=== PATIENT | female | born 1975 ===

== ENCOUNTER 2016-11-03 17:17 | Inpatient (IN) | payer MEDICAID, OTHER ==
--- NOTE | 2016-11-03 18:01 | C.PDOC ---
History Of Present Illness 41y/o female with PMHx of anemia s/p transfusions in past, presents for evaluation of generalized weakness, dizziness, and palpitations developing since this morning. Patient reports she takes iron pills. Otherwise, denies fever, chills, headache, shortness of breath, CP, dyspnea, diaphoresis, abdominal pain, nausea, vomiting, back pain, UTI sx. At time of evaluation, patient appears high and intoxicated, poor histroian. Time Seen by Provider: 11/03/16 17:42 Chief Complaint (Nursing): Palpitations History Per: Patient History/Exam Limitations: no limitations Onset/Duration Of Symptoms: Hrs Current Symptoms Are (Timing): Still Present Recent travel outside of the [place]: No Past Medical History Reviewed: Historical Data, Nursing Documentation, Vital Signs Vital Signs: Last Vital Signs Temp 98.3 F 11/03/16 17:25 Pulse 100 H 11/03/16 17:25 Resp 16 11/03/16 17:25 BP 108/69 11/03/16 17:25 Pulse Ox 97 11/03/16 18:01 - Medical History PMH: Anemia - [facility] Procedures D & C POST DELIVERY (02/10/13) PACKED CELL TRANSFUSION (02/10/13) Family History: States: Unknown Family Hx - Social History Hx Tobacco Use: No Hx Alcohol Use: Yes Hx Substance Use: No - Immunization History Hx Tetanus Toxoid Vaccination: No Hx Influenza Vaccination: No Hx Pneumococcal Vaccination: No Review Of Systems Except As Marked, All Systems Reviewed And Found Negative. Constitutional: Positive for: Weakness. Negative for: Fever, Chills Cardiovascular: Positive for: Palpitations. Negative for: Chest Pain Respiratory: Negative for: Cough, Shortness of Breath, Wheezing Gastrointestinal: Negative for: Nausea, Vomiting, Abdominal Pain Musculoskeletal: Negative for: Neck Pain Skin: Negative for: Rash Neurological: Positive for: Dizziness Physical Exam - Physical Exam Appears: Non-toxic, No Acute Distress Skin: Warm, Dry, Pale (slight) Head: Atraumatic, Normacephalic Eye(s): bilateral: PERRL (slugish reactive to light B/L) Nose: No Flaring Oral Mucosa: Dry, No Drooling Tongue: Normal Appearing Lips: Other (dry lips) Throat: No Erythema, No Exudate, No Drooling Neck: Normal ROM, Supple Cardiovascular: Rhythm Regular (tachy), No JVD, Other ((-) carotid bruit B/L) Respiratory: Normal Breath Sounds, No Rales, No Rhonchi, No Wheezing Gastrointestinal/Abdominal: Soft, No Tenderness, No Guarding, No Rebound Back: No CVA Tenderness Extremity: Normal ROM, No Pedal Edema, Capillary Refill (< 2 sec.) Neurological/Psych: Oriented x3, Normal Speech, Normal Cognition ED Course And Treatment - Laboratory Results Result Diagrams: 11/03/16 18:08 11/03/16 18:08 Lab Interpretation: Abnormal Urine POC: Negative ECG: Interpreted By Me, Viewed By Me ECG Rhythm: Sinus Rhythm Interpretation Of ECG: SInus tachy@98/min, NAD, no acute T wave or ST-T changes. O2 Sat by Pulse Oximetry: 97 (RA) Pulse Ox Interpretation: Normal - Radiology CXR: Interpreted by Me, Viewed By Me CXR Interpretation: Yes: No Acute Disease - Other Rad CXR X-Ray: Read By Radiologist Interpretation: FINDINGS: LUNGS: No focal consolidation. Please note that chest x-ray has limited sensitivity for the detection of pulmonary masses. PLEURA: No significant pleural effusion identified. No definite pneumothorax . CARDIOVASCULAR: The cardiomediastinal silhouette appears within normal limits of size. OSSEOUS STRUCTURES: No acute osseous abnormality identified. VISUALIZED UPPER ABDOMEN: Unremarkable. OTHER FINDINGS: None. IMPRESSION: No focal consolidation, significant pleural effusion, or definite pneumothorax identified. Progress Note: On re-eval, pt remained unchanged. Blood work review and appears abnoraml. Pt has clinical findings c/w acute anemia, hypokalemia, polysubstance abuse. case discussed with ED attending and admission w/ blood transfusion recommend. results review with pt, family memeber at bedside as well, agrees with plan. case discussed with and admission arranged with hem-onc consult. Disposition - Disposition Disposition: HOSPITALIZED Disposition Time: 18:40 Condition: STABLE Forms: [facility] (Dominican) - Clinical Impression Clinical Impression: Palpitations, Symptomatic anemia, Hypokalemia, Polysubstance (excluding opioids ) dependence - PA / SITE OPERATIONS MANAGER / Resident Statement MD/DO has reviewed & agrees with the documentation as recorded. - Scribe Statement The provider has reviewed the documentation as recorded by the Scribe SM All medical record entries made by the Scribe were at my direction and personally dictated by me. I have reviewed the chart and agree that the record accurately reflects my personal performance of the history, physical exam, medical decision making, and the department course for this patient. I have also personally directed, reviewed, and agree with the discharge instructions and disposition.
[2016-11-03 18:14] LABS: BASO # 0.2 K/uL (0.0-0.2); BASO % 1.2 % (0.0-2.0); EOS # 0.2 K/uL (0.0-0.7); EOS % 1.6 % (0.0-4.0); HEMATOCRIT 19.9 % (34.0-47.0); LYMPH # 1.3 K/uL (1.0-4.3); LYMPH % 8.8 % (20.0-40.0); MEAN CELL VOLUME 57.8 fL (81.0-99.0); MEAN CORPUSCULAR HGB CONC 27.7 g/dL (33.0-37.0); MEAN PLATELET VOLUME 5.9 fL (7.2-11.7); MONO # 0.9 K/uL (0.0-0.8); MONO % 6.1 % (0.0-10.0); PLATELET COUNT 600 K/uL (130-400); WHITE BLOOD COUNT 14.6 K/uL (4.8-10.8)
[2016-11-03 18:19] LABS: RBC URINE 3 /hpf (0-3); URINE BACTERIA FEW (<OCC); URINE BILIRUBIN NEGATIVE (NEGATIVE); URINE BLOOD 2+ (NEGATIVE); URINE COLOR Straw (YELLOW); URINE GLUCOSE (UA) NORMAL (Normal); URINE KETONE NEGATIVE (NEGATIVE); URINE LEUKOCYTE ESTERASE 3+ Leu/uL (Negative); URINE PROTEIN NEGATIVE (NEGATIVE); URINE UROBILINOGEN NORMAL mg/dL (0.2-1.0); WBC URINE 34 /hpf (0-5)
[2016-11-03 18:21] LABS: CHLORIDE 99 mmol/L (98-107)
[2016-11-03 18:22] LABS: POTASSIUM 3.2 mmol/L (3.6-5.2); SODIUM 133 mmol/L (132-148)
[2016-11-03 18:24] LABS: ALB/GLOB RATIO 0.5 (1.0-2.1); ALKALINE PHOSPHATASE 186 U/L (38-126); ALT/SGPT 13 U/L (9-52); AST/SGOT 19 U/L (14-36); BILIRUBIN,TOTAL 0.6 mg/dL (0.2-1.3); CARBON DIOXIDE 21 mmol/L (22-30); GFR AFRICAN-AMERICAN > 60; GLUCOSE,RANDOM 97 mg/dL (65-105); INR 1.3; TOTAL PROTEIN 8.6 g/dL (6.3-8.3)
--- NOTE | 2016-11-03 18:24 | RAD ---
HISTORY: SOB COMPARISON: Chest x-ray performed 07/08/14 TECHNIQUE: Chest PA and lateral FINDINGS: LUNGS: No focal consolidation. Please note that chest x-ray has limited sensitivity for the detection of pulmonary masses. PLEURA: No significant pleural effusion identified. No definite pneumothorax . CARDIOVASCULAR: The cardiomediastinal silhouette appears within normal limits of size. OSSEOUS STRUCTURES: No acute osseous abnormality identified. VISUALIZED UPPER ABDOMEN: Unremarkable. OTHER FINDINGS: None. IMPRESSION: No focal consolidation, significant pleural effusion, or definite pneumothorax identified.
[2016-11-03 18:25] LABS: ALCOHOL SERUM < 10 mg/dl (0-10); BLOOD UREA NITROGEN 2 mg/dL (7-17); CALCIUM 8.1 mg/dl (8.6-10.4)
[2016-11-03] MEDS ORDERED: Potassium Chloride 20 mEq ER Tab PO STA (18:58)
[2016-11-03 19:18] LABS: BASOPHIL 1 % (0-2); NEUTROPHIL 80 % (50-75); TOTAL CELLS COUNTED 100
[2016-11-03 19:20] LABS: GIANT PLATELETS PRESENT; LARGE PLATELETS PRESENT
[2016-11-03] MEDS ORDERED: Sodium Chloride 0.9% 1,000 ML ONE (19:44)
[2016-11-03] MEDS ORDERED: Potassium Chloride 20 mEq ER Tab PO ONE (20:26)
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
[2016-11-04] MEDS ORDERED: Sodium Chloride 0.9% 1,000 ML IV ONE (06:08)
--- NOTE | 2016-11-04 06:54 | CP.PCM.CON ---
History of Present Illness - History of Present Illness History of Present Illness: PATIENT SEEN. FULL CONSULT WILL BE DICTATED Dx: SEVERE SYMPTOMATIC HYPOCHROMIC MICROCYTIC ANEMIA R/O GI AND CONSTRUCTION LINEMAN BLOOD LOSS SUGGEST : IRON, TIBC, FERRITIN, B12, FOLATE LEVEL SERUM PROTEIN ELECTOPHORESIS GI AND CONSTRUCTION LINEMAN EVAL TO R/O BLOOD LOSS CONSIDER IV IRON Past Patient History - Past Medical History & Family History Past Medical History?: Yes - Past Social History Smoking Status: Never Smoked - CARDIAC Hx Cardiac Disorders: No - PULMONARY Hx Respiratory Disorders: No - NEUROLOGICAL Hx Neurological Disorder: No - HEENT Hx HEENT Problems: No - RENAL Hx Chronic Kidney Disease: No - ENDOCRINE/METABOLIC Hx Endocrine Disorders: No - HEMATOLOGICAL/ONCOLOGICAL Hx Anemia: Yes - INTEGUMENTARY Other/Comment: Pus filled drainage on left anterior pubis - MUSCULOSKELETAL/RHEUMATOLOGICAL Hx Falls: No - GASTROINTESTINAL Hx Gastrointestinal Disorders: No - GENITOURINARY/GYNECOLOGICAL Hx Genitourinary Disorders: No - PSYCHIATRIC Hx Substance Use: No - SURGICAL HISTORY Hx Surgeries: No - ANESTHESIA Hx Anesthesia: No Meds Allergies/Adverse Reactions: Allergies Allergy/AdvReac Type Severity Reaction Status Date / Time No Known Allergies Allergy Verified 11/03/16 17:40 - Medications Medications: Current Medications Acetaminophen (Tylenol 325mg Tab) 650 mg PO Q4H PRN PRN Reason: pain fever Famotidine (Pepcid) 40 mg PO DAILY EYAL Ceftriaxone Sodium (Rocephin Iv 1 Gm Duplex) 50 mls @ 100 mls/hr IVPB DAILY EYAL Sodium Chloride (Sodium Chloride 0.9%) 1,000 mls @ 1,000 mls/hr IV .Q1H ONE Stop: 11/04/16 07:07 Pneumococcal Polyvalent Vaccine (Pneumovax 23 Vaccine) 0.5 ml IM .ONCE ONE Stop: 11/05/16 10:01 Results - Vital Signs Recent Vital Signs: Last Vital Signs Temp 97.9 F 11/04/16 05:07 Pulse 80 11/04/16 05:07 Resp 20 11/04/16 05:07 BP 100/62 11/04/16 05:07 Pulse Ox 100 11/04/16 00:00 - Labs Result Diagrams: 11/03/16 18:08 11/03/16 18:08 Labs: Laboratory Results - last 24 hr 11/04/16 03:53 Stool Occult Blood Negative
--- NOTE | 2016-11-04 09:41 | CP.PCM.CON ---
History of Present Illness - History of Present Illness History of Present Illness: General surgery consult note HPI: Patient is a 41 year old female with past medical history of anemia, hidradenitis suppurativa, cocaine use with left groin hidradenitis suppurativa that has been continuos for a year. Patient denies fever, chills, nausea or vomiting. Review of Systems - Constitutional Constitutional: absent: Chills, Fever - Respiratory Respiratory: Dyspnea - Gastrointestinal Gastrointestinal: absent: Abdominal Pain, Nausea, Vomiting - Integumentary Integumentary: Rash Past Patient History - Past Medical History & Family History Past Medical History?: Yes - Past Social History Smoking Status: Never Smoked - CARDIAC Hx Cardiac Disorders: No - PULMONARY Hx Respiratory Disorders: No - NEUROLOGICAL Hx Neurological Disorder: No - HEENT Hx HEENT Problems: No - RENAL Hx Chronic Kidney Disease: No - ENDOCRINE/METABOLIC Hx Endocrine Disorders: No - HEMATOLOGICAL/ONCOLOGICAL Hx Anemia: Yes - INTEGUMENTARY Other/Comment: Pus filled drainage on left anterior pubis - MUSCULOSKELETAL/RHEUMATOLOGICAL Hx Falls: No - GASTROINTESTINAL Hx Gastrointestinal Disorders: No - GENITOURINARY/GYNECOLOGICAL Hx Genitourinary Disorders: No - PSYCHIATRIC Hx Substance Use: No - SURGICAL HISTORY Hx Surgeries: No - ANESTHESIA Hx Anesthesia: No Meds Allergies/Adverse Reactions: Allergies Allergy/AdvReac Type Severity Reaction Status Date / Time No Known Allergies Allergy Verified 11/03/16 17:40 - Medications Medications: Current Medications Acetaminophen (Tylenol 325mg Tab) 650 mg PO Q4H PRN PRN Reason: pain fever Famotidine (Pepcid) 40 mg PO DAILY EYAL Ceftriaxone Sodium (Rocephin Iv 1 Gm Duplex) 50 mls @ 100 mls/hr IVPB DAILY [facility] Pneumococcal Polyvalent Vaccine (Pneumovax 23 Vaccine) 0.5 ml IM .ONCE ONE Stop: 11/05/16 10:01 Physical Exam - Constitutional Appears: No Acute Distress - Head Exam Head Exam: ATRAUMATIC, NORMAL INSPECTION - Eye Exam Eye Exam: EOMI - Respiratory Exam Respiratory Exam: Clear to Auscultation Bilateral, NORMAL BREATHING PATTERN - Cardiovascular Exam Cardiovascular Exam: REGULAR RHYTHM, +S1, +S2 - GI/Abdominal Exam GI & Abdominal Exam: Normal Bowel Sounds, Soft - Extremities Exam Extremities exam: Positive for: normal inspection. Negative for: pedal edema, tenderness - Skin Additional comments: Left groin hidradenitis suppurativa Results - Vital Signs Recent Vital Signs: Last Vital Signs Temp 97.6 F 11/04/16 07:20 Pulse 78 11/04/16 07:20 Resp 20 11/04/16 07:20 BP 100/60 11/04/16 07:20 Pulse Ox 100 11/04/16 07:20 - Labs Result Diagrams: 11/03/16 18:08 11/03/16 18:08 Labs: Laboratory Results - last 24 hr 11/04/16 03:53 Stool Occult Blood Negative Assessment & Plan - Assessment and Plan (Free Text) Assessment: 41 year old female with left groin hidradenitis suppurativa Plan: - No surgical intervention at this time - Continue antibiotics regimen - Recommendation for Vibramycin outpatient - Plans discussed with Dr. Peter Banks, PGY-1
[2016-11-04] MEDS ORDERED: cefTRIAXone IV 1 gm in Dextros 50 ML IVPB SCH (10:00)
[2016-11-04 11:21] LABS: BASO # 0.1 K/uL (0.0-0.2); BASO % 0.8 % (0.0-2.0); EOS # 0.3 K/uL (0.0-0.7); EOS % 2.3 % (0.0-4.0); HEMATOCRIT 25.1 % (34.0-47.0); LYMPH # 1.2 K/uL (1.0-4.3); LYMPH % 8.8 % (20.0-40.0); MEAN CORPUSCULAR HEMOGLOBIN 18.8 pg (27.0-31.0); MEAN CORPUSCULAR HGB CONC 29.2 g/dL (33.0-37.0); PLATELET COUNT 510 K/uL (130-400); RED CELL DISTRIBUTION WIDTH 27.5 % (11.5-14.5); RETIC% 2.7 % (0.5-1.5)
[2016-11-04 11:25] LABS: MEAN CELL VOLUME 64.5 fL (81.0-99.0)
[2016-11-04 11:50] LABS: IRON 15 ug/dL (37-170)
[2016-11-04 11:51] LABS: CHLORIDE 105 mmol/L (98-107); POTASSIUM 3.3 mmol/L (3.6-5.2); SODIUM 139 mmol/L (132-148)
[2016-11-04 11:54] LABS: BLOOD UREA NITROGEN 3 mg/dL (7-17); CARBON DIOXIDE 24 mmol/L (22-30); GFR AFRICAN-AMERICAN > 60; GLUCOSE,RANDOM 100 mg/dL (65-105); MAGNESIUM 1.8 mg/dL (1.6-2.3); PHOSPHOROUS 2.5 mg/dL (2.5-4.5)
[2016-11-04 11:55] LABS: CALCIUM 7.5 mg/dl (8.6-10.4)
[2016-11-04 12:01] LABS: EOSINOPHIL 1 % (0-4); NEUTROPHIL 83 % (50-75); TOTAL CELLS COUNTED 100
--- NOTE | 2016-11-04 12:37 | CARD ---
APPROVED REPORT EKG Measurement Heart [id number] <Conclusion> Normal sinus rhythm Normal ECG
[2016-11-04] MEDS: Piperacill/Tazo 3.375gm in Dex 3.375 GM/50 ML BAG IVPB SCH ×3 (12:56→23:44)
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
[2016-11-04] MEDS ORDERED: Potassium Chloride 20 mEq ER Tab PO STA (13:09)
--- NOTE | 2016-11-04 13:12 | CARD ---
APPROVED REPORT EXAM: Two-dimensional and M-mode echocardiogram with Doppler and color Doppler. Other Information Quality : GoodRhythm : INDICATION Dizziness and Vertigo Infection:Rule out subacute bacterial endocarditis Palpitations 2D DIMENSIONS IVSd0.7 (0.7-1.1cm)LVDd4.3 (3.9-5.9cm) PWd0.7 (0.7-1.1cm)LVDs3.2 (2.5-4.0cm) FS (%) 27.4 %LVEF (%)53.6 (>50%) M-Mode DIMENSIONS RVDd2.31 (2.1-3.2cm)Left Atrium (MM)3.98 (2.5-4.0cm) IVSd0.85 (0.7-1.1cm)Aortic Root2.59 (2.2-3.7cm) LVDd4.68 (4.0-5.6cm)Aortic Cusp Exc.1.92 (1.5-2.0cm) PWd0.70 (0.7-1.1cm)FS (%) 33 % LVDs3.16 (2.0-3.8cm)LVEF (%)61 (>50%) Mitral Valve MV E Munsarcm448.4cm/sMV A Fbkaczru32.3cm/sE/A ratio1.2 TDI E/Lateral E'0.0E/Medial E'0.0 Tricuspid Valve TR Peak [id number]/sTR Peak Gr.[id number] LEFT VENTRICLE The left ventricle is normal size. There is normal left ventricular wall thickness. The left ventricular function is normal. The left ventricular ejection fraction is within the normal range. There is normal LV segmental wall motion. Tissue Doppler imaging reveals mild left ventricular diastolic dysfunction. No left ventricle thrombus noted on this study. There is no ventricular septal defect visualized. There is no left ventricular aneurysm. There is no mass noted in the left ventricle. RIGHT VENTRICLE The right ventricle is normal size. There is normal right ventricular wall thickness. The right ventricular systolic function is normal. ATRIA The left atrium size is normal. The right atrium size is normal. The interatrial septum is intact with no evidence for an atrial septal defect. AORTIC VALVE The aortic valve is normal in structure. There is no aortic valvular stenosis. There is no aortic valvular vegetation. MITRAL VALVE The mitral valve is normal in structure. There is no mitral valve stenosis. Mitral regurgitation is mild. TRICUSPID VALVE The tricuspid valve is normal in structure. There is mild tricuspid regurgitation. There is mild pulmonary hypertension. PULMONIC VALVE The pulmonary valve is normal in structure. GREAT VESSELS The aortic root is normal in size. The ascending aorta is normal in size. The pulmonary artery is normal. PERICARDIAL EFFUSION There is no pericardial effusion. <Conclusion> Tissue Doppler imaging reveals mild left ventricular diastolic dysfuNCTION. Mitral regurgitation is mild. There is mild tricuspid regurgitation. There is mild pulmonary hypertension.
[2016-11-04] MEDS: Vancomycin 1 gm/NS 200 ml 1 GM/200 ML BAG IVPB SCH (13:43)
[2016-11-05 01:05] VITALS: RESP 20
[2016-11-05] MEDS: Piperacill/Tazo 3.375gm in Dex 3.375 GM/50 ML BAG IVPB SCH ×4 (05:13→23:54)
[2016-11-05 08:26] LABS: HEMATOCRIT 32.5 % (34.0-47.0); MEAN CORPUSCULAR HEMOGLOBIN 21.5 pg (27.0-31.0); MONO # 0.8 K/uL (0.0-0.8); WHITE BLOOD COUNT 12.4 K/uL (4.8-10.8)
[2016-11-05 08:34] LABS: BASO # 0.2 K/uL (0.0-0.2); BASO % 1.3 % (0.0-2.0); EOS # 0.4 K/uL (0.0-0.7); LYMPH # 1.7 K/uL (1.0-4.3); LYMPH % 13.5 % (20.0-40.0); MEAN CORPUSCULAR HGB CONC 31.2 g/dL (33.0-37.0); MONO % 6.7 % (0.0-10.0); NRBC % 0.1 % (0.0-2.0); RED CELL DISTRIBUTION WIDTH 29.5 % (11.5-14.5)
[2016-11-05 08:36] LABS: MEAN CELL VOLUME 68.9 fL (81.0-99.0)
[2016-11-05 08:43] LABS: CHLORIDE 104 mmol/L (98-107); POTASSIUM 3.4 mmol/L (3.6-5.2); SODIUM 136 mmol/L (132-148)
[2016-11-05 08:45] LABS: GFR AFRICAN-AMERICAN > 60
[2016-11-05 08:46] LABS: ALB/GLOB RATIO 0.5 (1.0-2.1); ALKALINE PHOSPHATASE 156 U/L (38-126); ALT/SGPT 15 U/L (9-52); AST/SGOT 15 U/L (14-36); BILIRUBIN,TOTAL 0.9 mg/dL (0.2-1.3); BLOOD UREA NITROGEN 3 mg/dL (7-17); CALCIUM 7.7 mg/dl (8.6-10.4); CARBON DIOXIDE 24 mmol/L (22-30); GLUCOSE,RANDOM 93 mg/dL (65-105); TOTAL PROTEIN 7.7 g/dL (6.3-8.3)
[2016-11-05] MEDS ORDERED: Pneumococcal 23-Valent Vaccine IM ONE (10:00)
--- NOTE | 2016-11-05 10:09 | CP.PCM.PN ---
<Chepe Adams - Last Filed: 11/05/16 10:05> Subjective - Date & Time of Evaluation Date of Evaluation: 11/05/16 Time of Evaluation: 10:05 - Subjective Subjective: PGY1 Medicine Note for Dr. Yeager Patient seen and examined at bedside this morning. She states that she is feel stronger, but go dizzy while she was up and walking to the bathroom this morning. She also is complaining of left eye pain. She woke up to crusting and discharge coming from the left eye. She is tolerating her diet. Denies f/c, n/v , d/c, sob or cp. Objective - Vital Signs/Intake and Output Vital Signs (last 24 hours): Temp Pulse Resp BP Pulse Ox 98.5 F 77 20 110/69 100 11/05/16 08:00 11/05/16 08:00 11/05/16 08:00 11/05/16 08:00 11/05/16 08:00 Intake and Output: 11/05/16 11/05/16 06:59 18:59 Intake Total 1050 Balance 1050 - Medications Medications: Current Medications Acetaminophen (Tylenol 325mg Tab) 650 mg PO Q4H PRN PRN Reason: pain fever Famotidine (Pepcid) 40 mg PO DAILY EYAL Last Admin: 11/05/16 09:24 Dose: 40 mg Piperacillin Sod/Tazobactam Sod (Zosyn 3.375 Gm Iv Premix) 3.375 gm in 50 mls @ 100 mls/hr IVPB Q6H EYLA Last Admin: 11/05/16 05:13 Dose: 100 mls/hr Vancomycin/Sodium Chloride (Vancocin) 1 gm in 200 mls @ 133.333 mls/hr IVPB Q24H EYAL Stop: 11/09/16 13:01 Last Admin: 11/04/16 13:43 Dose: 133.333 mls/hr Potassium Chloride (K-Dur 20 Meq Er Tab) 40 meq PO STAT STA Stop: 11/05/16 10:05 - Labs Labs: 11/05/16 08:14 11/05/16 08:14 PT 14.2 SECONDS (9.7-12.2) H 11/03/16 18:08 INR 1.3 11/03/16 18:08 APTT 31 SECONDS (21-34) 11/03/16 18:08 - Constitutional Appears: Non-toxic, No Acute Distress - Head Exam Head Exam: NORMOCEPHALIC Additional comments: scar in center of forehead - Eye Exam Eye Exam: EOMI. absent: Normal appearance (Conjunctivitis of left eye. Green crust/discharge.) - ENT Exam ENT Exam: Mucous Membranes Moist - Respiratory Exam Respiratory Exam: Clear to Ausculation Bilateral, NORMAL BREATHING PATTERN. absent: Accessory Muscle Use, Wheezes, Respiratory Distress - Cardiovascular Exam Cardiovascular Exam: REGULAR RHYTHM, +S1, +S2 - GI/Abdominal Exam GI & Abdominal Exam: Soft, Normal Bowel Sounds. absent: Distended, Guarding, Tenderness - Extremities Exam Extremities Exam: Normal Inspection. absent: Calf Tenderness, Pedal Edema - Neurological Exam Neurological Exam: Alert, Awake, Oriented x3 Additional comments: Patient's sentences are fully comprehensible today. - Psychiatric Exam Psychiatric exam: Normal Mood - Skin Skin Exam: Normal Color, Rash (located on abdomen, non-erythematous), Warm Assessment and Plan - Assessment and Plan (Free Text) Plan: Symptomatic anemia Hgb 5.5 on admission patient received 2units of pRBCs on floor on 11/03 repeat Hgb on 11/04 was 7.3, transfused 2 more units of pRBCs 11/05: Hgb increased to 10.1; will continue to monitor with AM labs. Iron studies show: Iron 15, TIBC 310, %sat 5, ferritin 12.5 Occult blood stool negative Bandemia 11/03: WBC 14.6 - 8 % bands 11/04: WBC 14.0 - 2% bands 11/05: WBC decreased to 12.4 - 0 bands patient with UA with leukocyte esterase, WBC. urine culture pending awaiting blood cultures patient started on Vanco and Zosyn elevated platelets likely reactive - 600 on admission - currently decreased to 471 ECHO (11/04/16) - revealed mild left ventricular diatolic dysfunction. Mild Mitral regurg. Mild tricuspid regurug. No vegetations seen. Hypokalemia patient received Kdur in ER on 11/03 K on 11/05 was 3.4. given Kdur 40meq will continue to monitor and replete Hidradenitis Surgical consult, Dr. Green - help appreciated Polysubstance abuse UDS positive for coaine, amphetamines alcohol level <[address] Stephane - help appreciated HIV screen neg Breast discharge consider breast US Conjunctivitis Apply warm compresses Will re-evaluate tomorrow. Possibly start Cipro Ophthalmic drops. Case discussed with Dr. Shobha Adams PGY1 <Herman Yeager - Last Filed: 11/05/16 11:20> Objective - Vital Signs/Intake and Output Vital Signs (last 24 hours): Temp Pulse Resp BP Pulse Ox 98.5 F 77 20 110/69 100 11/05/16 08:00 11/05/16 08:00 11/05/16 08:00 11/05/16 08:00 11/05/16 08:00 Intake and Output: 11/05/16 11/05/16 06:59 18:59 Intake Total 1050 Balance 1050 - Medications Medications: Current Medications Acetaminophen (Tylenol 325mg Tab) 650 mg PO Q4H PRN PRN Reason: pain fever Famotidine (Pepcid) 40 mg PO DAILY EYAL Last Admin: 11/05/16 09:24 Dose: 40 mg Piperacillin Sod/Tazobactam Sod (Zosyn 3.375 Gm Iv Premix) 3.375 gm in 50 mls @ 100 mls/hr IVPB Q6H EYAL Last Admin: 11/05/16 05:13 Dose: 100 mls/hr Vancomycin/Sodium Chloride (Vancocin) 1 gm in 200 mls @ 133.333 mls/hr IVPB Q24H EYAL Stop: 11/09/16 13:01 Last Admin: 11/04/16 13:43 Dose: 133.333 mls/hr - Labs Labs: 11/05/16 08:14 11/05/16 08:14 PT 14.2 SECONDS (9.7-12.2) H 11/03/16 18:08 INR 1.3 11/03/16 18:08 APTT 31 SECONDS (21-34) 11/03/16 18:08 Attending/Attestation - Attestation I have personally seen and examined this patient.: Yes I have fully participated in the care of the patient.: Yes I have reviewed all pertinent clinical information, including history, physical exam and plan: Yes Notes (Text): Medical Attending: Patient was seen and examined by me. Agree with the above note by the resident Will start Cipro eye drops as well as warm compresses to the left eye. On exam we also had her stand up and walk around the hallway. She was able to do so readily without any assitance. Gait is normal. While walking she denied chest pain, denied shortness of breath, denied palpitations. The echo returned and was negative for vegetations. HIV negative. Pending on blood cultures. thank you Herman Yeager
[2016-11-05] MEDS ORDERED: Potassium Chloride 20 mEq ER Tab PO ONE (10:15)
[2016-11-05] MEDS ORDERED: Ciprofloxacin 0.3% OPTH SOLN OU SCH (11:30)
--- NOTE | 2016-11-05 11:50 | PCM.PSYCH ---
Initial Psychiatric Evaluation - Initial Psychiatric Evaluation Type of Admission: Voluntary Legal Status: Capacity Chief Complaint (in patient's own words): I was feeling anxious' History of Present Illness and Precipitating Events: Patient is a 41 years old HF, who lives with boyfriend and currently unemployed was admitted on the medical floor because of dizziness and palpitations. Today patient was consulted because of history of cocaine dependence, and amphetamine abuse. Patient reports a long history of abusing cocaine. As per the patient she injects up to $50 worth of cocaine daily, along with some amphetamine. As per the patient, yesterday she became dizzy and started having palpitations and so she came to the hospital to get help. Patient reports headaches, and anxiety but denies any shakes, seizures or any withdrawal symptoms. She reports irritability, but denies any feelings of hopelessness or helplessness. She denies any suicidal ideation or any homicidal ideation in the past. She denies any auditory or visual hallucinations or any psychotic symptoms. She denies any other substance abuse. Past medical history Low hemoglobin Current Medications: Active Medications Generic Name Dose Route Start Last Admin Trade Name Tori PRN Reason Stop Dose Admin Acetaminophen 650 mg 11/03/16 23:06 Tylenol 325mg Tab PO Q4H PRN pain fever Ciprofloxacin 1 drop 11/05/16 12:00 Ciloxan 0.3% Ophth Soln OU Q6 EYAL Famotidine 40 mg 11/04/16 10:00 11/05/16 09:24 Pepcid PO 40 mg DAILY EYAL Administration Piperacillin Sod/Tazobactam Sod 3.375 gm in 50 mls @ 100 mls/hr 11/04/16 12: 00 11/05/16 05:13 Zosyn 3.375 Gm Iv Premix IVPB 100 mls/hr Q6H EYAL Administration Vancomycin/Sodium Chloride 1 gm in 200 mls @ 133.333 mls/hr 11/04/16 13:00 13:43 Vancocin IVPB 11/09/16 13:01 133.333 mls/hr Q24H EYAL Administration Past Psychiatric History - Past Psychiatric History Previous Treatment History: None Pertinent Medical Hx (Current Medical&Sleep Prob, Allergies): Allergies Allergy/AdvReac Type Severity Reaction Status Date / Time No Known Allergies Allergy Verified 11/03/16 17:40 No Known Home Med 11/03/16 Review of Systems - Review of Systems All systems: reviewed and no additional remarkable complaints except - Psychiatric Psychiatric: Anxiety. absent: Suicidal Ideation Mental Status Examination - Personal Presentation Personal Presentation: Looks stated age - Affect Affect: Constricted - Motor Activity Motor Activity: Calm - Reliability in Providing Information Reliability in Providing Information: Good - Speech Speech: Organized - Mood Mood: Neutral - Formal Thought Process Formal Thought Process: No Impairment - Obsessions/Compulsions Obsessions: No Compulsions: No - Cognitive Functions Orientation: Person, Place, Situation, Time Sensorium: Alert Attention/Concentration: Attentive Abstract Thinking: [place] Estimate of Intelligence: Below average Judgement: Imparied, as evidence by: Poor judgement, Intact, as evidence by: Insight regarding need for hospitalization - Strength & Assets Inventory Strength & Assets Inventory: Family support DSM 5 DX - DSM 5 DSM 5 Diagnosis: Anxiety disorder NOS Cocaine use disorder moderate Amphetamine use disorder moderate - Recommended/Plan of Treatment Treatment Recommendations and Plan of Treatment: Anxiety disorder NOS Cocaine use disorder moderate Amphetamine use disorder moderate patient psychiatrically stable and can be discharged to an [facility] program - Smoking Cessation Smoking Cessation Initiated: No
[2016-11-05] MEDS: Ciprofloxacin 0.3% OPTH SOLN OU SCH ×3 (13:28→23:54)
[2016-11-05] MEDS: Vancomycin 1 gm/NS 200 ml 1 GM/200 ML BAG IVPB SCH (13:32)
[2016-11-06] MEDS: Ciprofloxacin 0.3% OPTH SOLN OU SCH ×2 (06:10→12:39)
[2016-11-06] MEDS: Piperacill/Tazo 3.375gm in Dex 3.375 GM/50 ML BAG IVPB SCH ×2 (06:10→12:33)
[2016-11-06 07:47] LABS: BASO # 0.1 K/uL (0.0-0.2); EOS # 0.4 K/uL (0.0-0.7); EOS % 3.3 % (0.0-4.0); NRBC % 0.1 % (0.0-2.0); WHITE BLOOD COUNT 11.8 K/uL (4.8-10.8)
[2016-11-06 08:04] LABS: CHLORIDE 102 mmol/L (98-107)
[2016-11-06 08:05] LABS: POTASSIUM 3.8 mmol/L (3.6-5.2); SODIUM 137 mmol/L (132-148)
[2016-11-06 08:07] LABS: ALB/GLOB RATIO 0.5 (1.0-2.1); ALKALINE PHOSPHATASE 170 U/L (38-126); AST/SGOT 21 U/L (14-36); BILIRUBIN,TOTAL 0.7 mg/dL (0.2-1.3); BLOOD UREA NITROGEN 5 mg/dL (7-17); CARBON DIOXIDE 26 mmol/L (22-30); GFR AFRICAN-AMERICAN > 60
[2016-11-06 08:08] LABS: ALT/SGPT 20 U/L (9-52); CALCIUM 8.2 mg/dl (8.6-10.4); GLUCOSE,RANDOM 84 mg/dL (65-105)
[2016-11-06 08:24] LABS: BASO % 1.2 % (0.0-2.0); LYMPH # 1.9 K/uL (1.0-4.3); LYMPH % 16.4 % (20.0-40.0); MEAN CELL VOLUME 69.8 fL (81.0-99.0); MEAN CORPUSCULAR HEMOGLOBIN 21.6 pg (27.0-31.0); MEAN CORPUSCULAR HGB CONC 30.9 g/dL (33.0-37.0); MEAN PLATELET VOLUME 5.9 fL (7.2-11.7); MONO % 8.8 % (0.0-10.0)
[2016-11-06] MEDS: Vancomycin 1 gm/NS 200 ml 1 GM/200 ML BAG IVPB SCH (13:15)
[2016-11-06 17:07] VITALS: BP 110/75; PULSE 68; TEMP 98.2; O2SAT 99
--- NOTE | 2016-11-08 09:48 | CP.PCM.DIS ---
<Chepe Adams - Last Filed: 11/08/16 09:45> Provider - Provider Date of Admission: 11/03/16 18:41 Attending physician: Shankar Vogel MD Consults: Hector Florez - acute anemia [place] - hidradenitis suppurativa Stephane, Farida - Alcohol/Cocaine Abuse, Depression Time Spent in preparation of Discharge (in minutes): 45 Hospital Course - Lab Results Lab Results: Micro Results 11/04/16 10:27 Blood-Venous Blood Culture - Preliminary NO GROWTH AFTER 3 DAYS 11/04/16 10:50 Blood-Venous Blood Culture - Preliminary NO GROWTH AFTER 3 DAYS Most Recent Lab Values WBC 11.8 K/uL (4.8-10.8) H 11/06/16 06:45 RBC 4.87 Mil/uL (3.80-5.20) 11/06/16 06:45 Hgb 10.5 g/dL (11.0-16.0) L 11/06/16 06:45 Hct 34.0 % (34.0-47.0) 11/06/16 06:45 MCV 69.8 fL (81.0-99.0) L 11/06/16 06:45 MCH 21.6 pg (27.0-31.0) L 11/06/16 06:45 MCHC 30.9 g/dL (33.0-37.0) L 11/06/16 06:45 RDW 30.0 % (11.5-14.5) H 11/06/16 06:45 Plt Count 459 K/uL (130-400) H 11/06/16 06:45 MPV 5.9 fL (7.2-11.7) L 11/06/16 06:45 Neut % (Auto) 70.3 % (50.0-75.0) 11/06/16 06:45 Lymph % (Auto) 16.4 % (20.0-40.0) L 11/06/16 06:45 Grand % (Auto) 8.8 % (0.0-10.0) 11/06/16 06:45 Eos % (Auto) 3.3 % (0.0-4.0) 11/06/16 06:45 Baso % (Auto) 1.2 % (0.0-2.0) 11/06/16 06:45 Neut # 8.3 K/uL (1.8-7.0) H 11/06/16 06:45 Lymph # 1.9 K/uL (1.0-4.3) 11/06/16 06:45 Grand # 1.0 K/uL (0.0-0.8) H 11/06/16 06:45 Eos # 0.4 K/uL (0.0-0.7) 11/06/16 06:45 Baso # 0.1 K/uL (0.0-0.2) 11/06/16 06:45 Neutrophils % (Manual) 83 % (50-75) H 11/04/16 11:09 Band Neutrophils % 2 % (0-2) 11/04/16 11:09 Lymphocytes % (Manual) 7 % (20-40) L 11/04/16 11:09 Monocytes % (Manual) 7 % (0-10) 11/04/16 11:09 Eosinophils % (Manual) 1 % (0-4) 11/04/16 11:09 Basophils % (Manual) 1 % (0-2) 11/03/16 18:08 Toxic Granulation Present 11/04/16 11:09 Platelet Estimate Increased (NORMAL) H 11/04/16 11:09 Large Platelets Present 11/03/16 18:08 Giant Platelets Present 11/03/16 18:08 Hypochromasia (manual) Slight 11/04/16 11:09 Poikilocytosis (manual Slight 11/04/16 11:09 Anisocytosis (manual) Slight 11/04/16 11:09 Microcytosis (manual) Slight 11/04/16 11:09 Macrocytosis (manual) Slight 11/04/16 11:09 Schistocytes Slight 11/03/16 18:08 Retic Count 2.7 % (0.5-1.5) H 11/04/16 11:09 PT 14.2 SECONDS (9.7-12.2) H 11/03/16 18:08 INR 1.3 11/03/16 18:08 APTT 31 SECONDS (21-34) 11/03/16 18:08 Sodium 137 mmol/L (132-148) 11/06/16 06:45 Potassium 3.8 mmol/L (3.6-5.2) 11/06/16 06:45 Chloride 102 mmol/L (98-107) 11/06/16 06:45 Carbon Dioxide 26 mmol/L (22-30) 11/06/16 06:45 Anion Gap 13 (10-20) 11/06/16 06:45 BUN 5 mg/dL (7-17) L 11/06/16 06:45 Creatinine 0.5 MG/DL (0.7-1.2) L 11/06/16 06:45 Est GFR ( Amer) > 60 11/06/16 06:45 Est GFR (Non-Af Amer) > 60 11/06/16 06:45 POC Glucose (mg/dL) 91 mg/dL (65-110) 11/03/16 17:34 Random Glucose 84 mg/dL (65-105) 11/06/16 06:45 Calcium 8.2 mg/dl (8.6-10.4) L 11/06/16 06:45 Phosphorus 2.5 mg/dL (2.5-4.5) 11/04/16 11:09 Magnesium 1.8 mg/dL (1.6-2.3) 11/04/16 11:09 Iron 15 ug/dL (37-170) L 11/04/16 11:09 TIBC 310 ug/dL (250-450) 11/04/16 11:09 % Saturation 5 (20-55) L 11/04/16 11:09 Ferritin 12.5 ng/mL 11/04/16 11:09 Total Bilirubin 0.7 mg/dL (0.2-1.3) 11/06/16 06:45 AST 21 U/L (14-36) 11/06/16 06:45 ALT 20 U/L (9-52) 11/06/16 06:45 Alkaline Phosphatase 170 U/L (38-126) H 11/06/16 06:45 Total Creatine Kinase < 20 U/L (30-135) L 11/03/16 18:08 Troponin I < 0.0120 ng/mL (0.00-0.120) 11/03/16 18:08 Total Protein 8.0 g/dL (6.3-8.3) 11/06/16 06:45 Albumin 2.8 g/dL (3.5-5.0) L 11/06/16 06:45 Globulin 5.3 gm/dL (2.2-3.9) H 11/06/16 06:45 Albumin/Globulin Ratio 0.5 (1.0-2.1) L 11/06/16 06:45 Urine Color Straw (YELLOW) 11/03/16 18:08 Urine Clarity Clear (Clear) 11/03/16 18:08 Urine pH 7.0 (5.0-8.0) 11/03/16 18:08 Ur Specific [place] 1.001 (1.003-1.030) L 11/03/16 18:08 Urine Protein Negative mg/dL (NEGATIVE) 11/03/16 18:08 Urine Glucose (UA) Normal mg/dL (Normal) 11/03/16 18:08 Urine Ketones Negative mg/dL (NEGATIVE) 11/03/16 18:08 Urine Blood 2+ (NEGATIVE) H 11/03/16 18:08 Urine Nitrate Negative (NEGATIVE) 11/03/16 18:08 Urine Bilirubin Negative (NEGATIVE) 11/03/16 18:08 Urine Urobilinogen Normal mg/dL (0.2-1.0) 11/03/16 18:08 Ur Leukocyte Esterase 3+ Jam/uL (Negative) H 11/03/16 18:08 Urine WBC (Auto) 34 /hpf (0-5) H 11/03/16 18:08 Urine RBC (Auto) 3 /hpf (0-3) 11/03/16 18:08 Ur Squamous Epith Cells 1 /hpf (0-5) 11/03/16 18:08 Urine Bacteria Few (<OCC) H 11/03/16 18:08 Urine HCG, Qual Negative (NEGATIVE) 11/03/16 18:08 Stool Occult Blood Negative (NEGATIVE) 11/04/16 03:53 Urine Opiates Screen Negative (NEGATIVE) 11/03/16 18:08 Urine Methadone Screen Negative (NEGATIVE) 11/03/16 18:08 Ur Barbiturates Screen Negative (NEGATIVE) 11/03/16 18:08 Ur Phencyclidine Scrn Negative (NEGATIVE) 11/03/16 18:08 Ur Amphetamines Screen Positive (NEGATIVE) 11/03/16 18:08 U Benzodiazepines Scrn Negative (NEGATIVE) 11/03/16 18:08 U Oth Cocaine Metabols Positive (NEGATIVE) 11/03/16 18:08 U Cannabinoids Screen Negative (NEGATIVE) 11/03/16 18:08 Alcohol, Quantitative < 10 mg/dl (0-10) 11/03/16 18:08 HIV 1&2 Antibody Screen Negative (NEGATIVE) 11/04/16 11:09 Blood Type B POSITIVE 11/03/16 18:08 Antibody Screen Negative 11/03/16 18:08 - Hospital Course Hospital Course: As per admission documentation Patient is a 41 year old female with PMHx anemia, hidradenitis suppurativa, cocaine use, who presents with weakness which began at 2PM on 11/03. Patient states she was cleaning her house and felt like her heart was pumping harder than normal. Patient states she stopped, decided to rest, but felt the pumping sensation again. Patient states she felt like she would collapse so she called EMS. Patient states she did not lose consciousness or fall. Patient denies prior episodes. Patient complains of chills, dry mouth, weakness, right ear pain with swallowing and non-productive cough. Patient states she has been eating and drinking well. Patient is a poor historian and appears under the influence of illicit substance although patient states last use was two days ago. Patient was admitted to the hospital for symptomatic anemia. Patient's Hgb upon admission was 5.5. She received 2 units of pRBCs on 11/03. Repeat CBC showed a Hgb of 7.3. Two more units of pRBCs were transfused on 11/04. Hgb on 11/05 was 10.1 (no transfusion). Hgb on 11/06 was stable at 10.5. Patient also had a bandemia at 8% upon admission. She was placed on vanco and zosyn as emperic therapy as blood/urine cultures were drawn. After 3 days, blood cultures had no growth. Urine culture showed Beta Hemolytic Strep Group B bacteria, sensitive to penicillin. Patient was given a script of Augmentin for a total of 7 days upon discharge. An EKG was performed which showed a normal EKG with the patient to be in NSR at 98 bpm. In the ED the patient's UDS was positive for cocaine and amphetamines. It was believed the elevated HR was due to the positive UDS. CXR performed on 11/03 showed no focal consolidation, sifnigicant pleural effusion or definite pneumothorax identified. ECHO (11/04/16) - revealed mild left ventricular diatolic dysfunction. Mild Mitral regurg. Mild tricuspid regurug. No vegetations seen. HIV1&2 antibody screen were negative. Stool occult blood were negative. Iron studies showed: Iron 15, TIBC 310, %sat 5, ferritin 12.5. Patient developed conjunctivitis upon waking Monday morning. Started on Ciprofloxacin 0.3% Ophthalmic Drops Surgical Consult placed to Dr. Dawson Green for hidradenitis suppurativa - no surgical intervention at this time. Recommend Vibramycin outpatient. Psych Consult placed to Dr. Farida Calderón - patient psychiatrically stable and can be discharged to an IOP program. Hem Consult placed to Dr. Hector Florez - Dx: SEVERE SYMPTOMATIC HYPOCHROMIC MICROCYTIC ANEMIA, recommend GI/REWORKER eval to r/o blood loss Discharge Instructions: Please discharge patient home, as per Dr. Yeager. Patient is to follow up with her Primary Care Physician in one week. If patient does not have a primary care physician, patient is to follow up with the clinic at [facility]. If symptoms worsen, patient is to return to the hospital for further evaluation and treatment. Instructions were explained to the patient. Patient understands and agrees. Patient informed to stop using cocaine, meth and alcohol. She was informed that the main reason for her stay today was a result of her drug use. Patient states that she understands and will not use again. Patient given Augmentin 500mg/125mg PO Q12H x 7 days and Ciprofloxacin 0.3% Ophthalmic Drops 1 drop O as directed. - Date & Time of H&P Date of H&P: 11/04/16 Time of H&P: 12:55 Discharge Exam - Head Exam Head Exam: NORMOCEPHALIC - Eye Exam Eye Exam: EOMI. absent: Normal appearance (Conjunctivitis left>right. Green crustation surrounding left eye >right eye.) - ENT Exam ENT Exam: Mucous Membranes Moist - Respiratory Exam Respiratory Exam: Clear to PA & Lateral, NORMAL BREATHING PATTERN. absent: Accessory Muscle Use, Rales, Wheezes, Respiratory Distress - Cardiovascular Exam Cardiovascular Exam: REGULAR RHYTHM, +S1, +S2. absent: JVD, Rubs - GI/Abdominal Exam GI & Abdominal Exam: Normal Bowel Sounds, Soft, Unremarkable. absent: Firm, Guarding, Rebound, Rigid, Tenderness - Neurological Exam Neurological exam: Alert, CN II-XII Intact, Oriented x3 - Psychiatric Exam Psychiatric exam: Normal Affect, Normal Mood - Skin Skin Exam: Dry, Normal Color, Warm Discharge Plan - Discharge Medications Prescriptions: Amoxicillin/Clavulanate [Augmentin 500 MG-125 MG] 1 tab PO Q12 7 Days Ciprofloxacin 0.3% [Ciloxan 0.3% Ophth SOLN] 1 drop OU Q6 #1 bottle - Follow Up Plan Condition: STABLE Disposition: HOME/ ROUTINE Instructions: Amoxicillin/Clavulanate Potassium (By mouth), Ciprofloxacin ( Into the eye), Hypokalemia (DC), Cocaine Abuse (DC), Abuse of Alcohol (DC), Anemia (DC) Additional Instructions: Please discharge patient home, as per Dr. Yeager. Patient is to follow up with her Primary Care Physician in one week. If patient does not have a primary care physician, patient is to follow up with the clinic at [facility]. If symptoms worsen, patient is to return to the hospital for further evaluation and treatment. Instructions were explained to the patient. Patient understands and agrees. Patient informed to stop using cocaine, meth and alcohol. She was informed that the main reason for her stay today was a result of her drug use. Patient states that she understands and will not use again. Patient given Augmentin 500mg/125mg PO Q12H x 7 days and Ciprofloxacin 0.3% Ophthalmic Drops 1 drop O as directed. Referrals: [facility] [Outside] <Herman Yeager - Last Filed: 11/14/16 07:39> Provider - Provider Date of Admission: 11/03/16 18:41 Attending physician: Shankar Vogel MD Hospital Course - Lab Results Lab Results: Micro Results 11/04/16 10:27 Blood-Venous Blood Culture - Final NO GROWTH AFTER 5 DAYS 11/04/16 10:27 Blood-Venous Gram Stain - Final TEST NOT PERFORMED 11/04/16 10:50 Blood-Venous Blood Culture - Final NO GROWTH AFTER 5 DAYS 11/04/16 10:50 Blood-Venous Gram Stain - Final TEST NOT PERFORMED Most Recent Lab Values WBC 11.8 K/uL (4.8-10.8) H 11/06/16 06:45 RBC 4.87 Mil/uL (3.80-5.20) 11/06/16 06:45 Hgb 10.5 g/dL (11.0-16.0) L 11/06/16 06:45 Hct 34.0 % (34.0-47.0) 11/06/16 06:45 MCV 69.8 fL (81.0-99.0) L 11/06/16 06:45 MCH 21.6 pg (27.0-31.0) L 11/06/16 06:45 MCHC 30.9 g/dL (33.0-37.0) L 11/06/16 06:45 RDW 30.0 % (11.5-14.5) H 11/06/16 06:45 Plt Count 459 K/uL (130-400) H 11/06/16 06:45 MPV 5.9 fL (7.2-11.7) L 11/06/16 06:45 Neut % (Auto) 70.3 % (50.0-75.0) 11/06/16 06:45 Lymph % (Auto) 16.4 % (20.0-40.0) L 11/06/16 06:45 Grand % (Auto) 8.8 % (0.0-10.0) 11/06/16 06:45 Eos % (Auto) 3.3 % (0.0-4.0) 11/06/16 06:45 Baso % (Auto) 1.2 % (0.0-2.0) 11/06/16 06:45 Neut # 8.3 K/uL (1.8-7.0) H 11/06/16 06:45 Lymph # 1.9 K/uL (1.0-4.3) 11/06/16 06:45 Grand # 1.0 K/uL (0.0-0.8) H 11/06/16 06:45 Eos # 0.4 K/uL (0.0-0.7) 11/06/16 06:45 Baso # 0.1 K/uL (0.0-0.2) 11/06/16 06:45 Neutrophils % (Manual) 83 % (50-75) H 11/04/16 11:09 Band Neutrophils % 2 % (0-2) 11/04/16 11:09 Lymphocytes % (Manual) 7 % (20-40) L 11/04/16 11:09 Monocytes % (Manual) 7 % (0-10) 11/04/16 11:09 Eosinophils % (Manual) 1 % (0-4) 11/04/16 11:09 Basophils % (Manual) 1 % (0-2) 11/03/16 18:08 Toxic Granulation Present 11/04/16 11:09 Platelet Estimate Increased (NORMAL) H 11/04/16 11:09 Large Platelets Present 11/03/16 18:08 Giant Platelets Present 11/03/16 18:08 Hypochromasia (manual) Slight 11/04/16 11:09 Poikilocytosis (manual Slight 11/04/16 11:09 Anisocytosis (manual) Slight 11/04/16 11:09 Microcytosis (manual) Slight 11/04/16 11:09 Macrocytosis (manual) Slight 11/04/16 11:09 Schistocytes Slight 11/03/16 18:08 Retic Count 2.7 % (0.5-1.5) H 11/04/16 11:09 PT 14.2 SECONDS (9.7-12.2) H 11/03/16 18:08 INR 1.3 11/03/16 18:08 APTT 31 SECONDS (21-34) 11/03/16 18:08 Sodium 137 mmol/L (132-148) 11/06/16 06:45 Potassium 3.8 mmol/L (3.6-5.2) 11/06/16 06:45 Chloride 102 mmol/L (98-107) 11/06/16 06:45 Carbon Dioxide 26 mmol/L (22-30) 11/06/16 06:45 Anion Gap 13 (10-20) 11/06/16 06:45 BUN 5 mg/dL (7-17) L 11/06/16 06:45 Creatinine 0.5 MG/DL (0.7-1.2) L 11/06/16 06:45 Est GFR ( Amer) > 60 11/06/16 06:45 Est GFR (Non-Af Amer) > 60 11/06/16 06:45 POC Glucose (mg/dL) 91 mg/dL (65-110) 11/03/16 17:34 Random Glucose 84 mg/dL (65-105) 11/06/16 06:45 Calcium 8.2 mg/dl (8.6-10.4) L 11/06/16 06:45 Phosphorus 2.5 mg/dL (2.5-4.5) 11/04/16 11:09 Magnesium 1.8 mg/dL (1.6-2.3) 11/04/16 11:09 Iron 15 ug/dL (37-170) L 11/04/16 11:09 TIBC 310 ug/dL (250-450) 11/04/16 11:09 % Saturation 5 (20-55) L 11/04/16 11:09 Ferritin 12.5 ng/mL 11/04/16 11:09 Total Bilirubin 0.7 mg/dL (0.2-1.3) 11/06/16 06:45 AST 21 U/L (14-36) 11/06/16 06:45 ALT 20 U/L (9-52) 11/06/16 06:45 Alkaline Phosphatase 170 U/L (38-126) H 11/06/16 06:45 Total Creatine Kinase < 20 U/L (30-135) L 11/03/16 18:08 Troponin I < 0.0120 ng/mL (0.00-0.120) 11/03/16 18:08 Total Protein 8.0 g/dL (6.3-8.3) 11/06/16 06:45 Albumin 2.8 g/dL (3.5-5.0) L 11/06/16 06:45 Globulin 5.3 gm/dL (2.2-3.9) H 11/06/16 06:45 Albumin/Globulin Ratio 0.5 (1.0-2.1) L 11/06/16 06:45 Urine Color Straw (YELLOW) 11/03/16 18:08 Urine Clarity Clear (Clear) 11/03/16 18:08 Urine pH 7.0 (5.0-8.0) 11/03/16 18:08 Ur Specific [place] 1.001 (1.003-1.030) L 11/03/16 18:08 Urine Protein Negative mg/dL (NEGATIVE) 11/03/16 18:08 Urine Glucose (UA) Normal mg/dL (Normal) 11/03/16 18:08 Urine Ketones Negative mg/dL (NEGATIVE) 11/03/16 18:08 Urine Blood 2+ (NEGATIVE) H 11/03/16 18:08 Urine Nitrate Negative (NEGATIVE) 11/03/16 18:08 Urine Bilirubin Negative (NEGATIVE) 11/03/16 18:08 Urine Urobilinogen Normal mg/dL (0.2-1.0) 11/03/16 18:08 Ur Leukocyte Esterase 3+ Jam/uL (Negative) H 11/03/16 18:08 Urine WBC (Auto) 34 /hpf (0-5) H 11/03/16 18:08 Urine RBC (Auto) 3 /hpf (0-3) 11/03/16 18:08 Ur Squamous Epith Cells 1 /hpf (0-5) 11/03/16 18:08 Urine Bacteria Few (<OCC) H 11/03/16 18:08 Urine HCG, Qual Negative (NEGATIVE) 11/03/16 18:08 Stool Occult Blood Negative (NEGATIVE) 11/04/16 03:53 Urine Opiates Screen Negative (NEGATIVE) 11/03/16 18:08 Urine Methadone Screen Negative (NEGATIVE) 11/03/16 18:08 Ur Barbiturates Screen Negative (NEGATIVE) 11/03/16 18:08 Ur Phencyclidine Scrn Negative (NEGATIVE) 11/03/16 18:08 Ur Amphetamines Screen Positive (NEGATIVE) 11/03/16 18:08 U Benzodiazepines Scrn Negative (NEGATIVE) 11/03/16 18:08 U Oth Cocaine Metabols Positive (NEGATIVE) 11/03/16 18:08 U Cannabinoids Screen Negative (NEGATIVE) 11/03/16 18:08 Alcohol, Quantitative < 10 mg/dl (0-10) 11/03/16 18:08 HIV 1&2 Antibody Screen Negative (NEGATIVE) 11/04/16 11:09 Blood Type B POSITIVE 11/03/16 18:08 Antibody Screen Negative 11/03/16 18:08 Attending/Attestation - Attestation I have personally seen and examined this patient.: Yes I have fully participated in the care of the patient.: Yes I have reviewed all pertinent clinical information, including history, physical exam and plan: Yes Notes (Text): Medical Attending: Patient was seen and examined by me. Agree with the above note by the resident. The patient was lectured on the dangers of polysubstance abuse and that she was still relatively young and had time to change her life and move forward. As mentioned previously on exam she appears to be doing well. She is ambulating on her own, bathroom on her own. Echo negative for vegetation and blood cultures negative.
== END 2016-11-06 16:35 | disposition home or self-care (01) | DRG 897 ==
LOC: C.ER 17:17 → C.9E 18:41 → C.3T 19:56
PROVIDERS: ADMIT Family Medicine; ATTEND Family Medicine
DX: F14.90 Cocaine use, unspecified, uncomplicated (principal); R65.10 Systemic inflammatory response syndrome (SIRS) of non-infectious origin without acute organ dysfunction; E87.6 Hypokalemia; F15.90 Other stimulant use, unspecified, uncomplicated; D72.825 Bandemia; D50.9 Iron deficiency anemia, unspecified; F41.9 Anxiety disorder, unspecified; H10.9 Unspecified conjunctivitis; L73.2 Hidradenitis suppurativa; I34.0 Nonrheumatic mitral (valve) insufficiency; F32.89 Other specified depressive episodes

== ENCOUNTER 2017-01-24 13:29 | Emergency (ER) | payer MEDICAID, OTHER ==
--- NOTE | 2017-01-24 13:47 | C.PDOC ---
History Of Present Illness CO PERSIST SX L GROIN. PMHx anemia, hidradenitis suppurativa, cocaine use EVAL DR VILLELA 11/04 FROM PREV ADMISSION FOR SAME, NOTED TO HAVE SX >1 YEAR. RECOMMENDED ABX TX, FU CLINIC. PS ONLY RECENTLY RECEIVED MEDICAID REQUESTING REFERRAL INFO EXAM NONTOXIC SKIN +hidradenitis suppurativa DIFFUSE L GROIN/UPPER INNER THIGH. CHRONIC SKIN CHANGES Time Seen by Provider: 01/24/17 13:39 Chief Complaint (Nursing): Abnormal Skin Integrity History Per: Patient History/Exam Limitations: no limitations Onset/Duration Of Symptoms: Persistent Past Medical History Reviewed: Historical Data, Nursing Documentation, Vital Signs Vital Signs: Last Vital Signs Temp 97.7 F 01/24/17 13:34 Pulse 87 01/24/17 13:34 Resp 18 01/24/17 13:34 BP 104/70 01/24/17 13:34 Pulse Ox 96 01/24/17 13:54 - Medical History PMH: Anemia - [facility] Procedures D & C POST DELIVERY (02/10/13) PACKED CELL TRANSFUSION (02/10/13) Family History: States: No Known Family Hx - Social History Hx Tobacco Use: No Hx Alcohol Use: Yes Hx Substance Use: No - Immunization History Hx Tetanus Toxoid Vaccination: No Hx Influenza Vaccination: No Hx Pneumococcal Vaccination: No Review Of Systems Except As Marked, All Systems Reviewed And Found Negative. Constitutional: Negative for: Fever Gastrointestinal: Negative for: Nausea, Vomiting, Abdominal Pain Physical Exam - Physical Exam Appears: Non-toxic, No Acute Distress Skin: Warm, Dry, Other ((+) Hidradenitis suppurativa diffuse left groin/upper inner thigh. Chronic skin changes.) Respiratory: Normal Breath Sounds Gastrointestinal/Abdominal: Normal Exam, Soft, No Tenderness, No Guarding, No Rebound Neurological/Psych: Oriented x3, Normal Speech, Normal Motor ED Course And Treatment O2 Sat by Pulse Oximetry: 96 (RA) Pulse Ox Interpretation: Normal Disposition Counseled Patient/Family Regarding: Diagnosis, Need For Followup - Disposition Referrals: [facility] [Outside] at [facility] [Outside] Disposition: HOME/ ROUTINE Disposition Time: 13:47 Condition: GOOD Additional Instructions: READ INSTRUCTIONS FOR hidradenitis suppurativa Prescriptions: Acetaminophen [Tylenol Extra Strength] 2 tab PO Q6 #30 tablet Ibuprofen [Motrin] 600 mg PO Q6 #30 tab Tetracycline HCl 500 mg PO BID #240 capsule Forms: [facility] (Lux[place]ish), General Discharge Instructions - Clinical Impression Clinical Impression: Hidradenitis suppurativa - Scribe Statement The provider has reviewed the documentation as recorded by the Marizaibmarkos Dumont Provider Attestation: All medical record entries made by the Mairzaibe were at my direction and personally dictated by me. I have reviewed the chart and agree that the record accurately reflects my personal performance of the history, physical exam, medical decision making, and the department course for this patient. I have also personally directed, reviewed, and agree with the discharge instructions and disposition.
[2017-01-24 14:07] VITALS: BP 104/70; PULSE 87; RESP 18; TEMP 97.7; O2SAT 96; BMI 24.0
== END 2017-01-24 14:27 | disposition home or self-care (01) ==
LOC: C.ER 13:29
DX: L73.2 Hidradenitis suppurativa (principal)

== ENCOUNTER 2017-02-08 11:02 | Inpatient (IN) | payer MEDICAID, OTHER ==
[2017-02-08 11:03] VITALS: BMI 21.4
--- NOTE | 2017-02-08 12:14 | C.PDOC ---
History Of Present Illness 41 y/o female with wound to the left groin for 1 + year. Pt notes that it started as a pimple and worsened. (+) occassional discharge. Pt was evaluated by Dr Reed in the clinic yesterday and instructed to come to ER for further evaluation. PT notes she is on antibiotic for UTI. (-) dysuria (-) urinary frequency. She denies fevers, chills, chest pain, SOB, n/v, d/c, abdominal pain, lower extremity edema, or any additional acute complaints. Time Seen by Provider: 02/08/17 11:32 Chief Complaint (Nursing): Medical Clearance History Per: Patient History/Exam Limitations: no limitations Onset/Duration Of Symptoms: Days Current Symptoms Are (Timing): Still Present Past Medical History Reviewed: Historical Data, Nursing Documentation, Vital Signs Vital Signs: Last Vital Signs Temp 98.5 F 02/09/17 08:00 Pulse 78 02/09/17 08:00 Resp 17 02/09/17 08:00 BP 101/60 02/09/17 08:00 Pulse Ox 99 02/09/17 13:28 - Medical History PMH: Anemia Surgical History: No Surg Hx - [facility] Procedures D & C POST DELIVERY (02/10/13) PACKED CELL TRANSFUSION (02/10/13) Family History: States: No Known Family Hx - Social History Hx Tobacco Use: No Hx Alcohol Use: Yes Hx Substance Use: No - Immunization History Hx Tetanus Toxoid Vaccination: No Hx Influenza Vaccination: No Hx Pneumococcal Vaccination: No Review Of Systems Constitutional: Negative for: Fever, Chills Gastrointestinal: Negative for: Nausea, Vomiting, Diarrhea Genitourinary: Negative for: Dysuria, Hematuria Skin: Negative for: Rash Neurological: Negative for: Weakness, Numbness Physical Exam - Physical Exam Appears: Non-toxic, No Acute Distress Skin: Warm, Dry, Other (L groin extendign to buttock : +swelling area consistent with hidradenitis superativa on suprapubic area (-)active drainage (- )erythema) Head: Atraumatic, Normacephalic Eye(s): bilateral: Normal Inspection, EOMI Nose: Normal Oral Mucosa: Moist Neck: Normal ROM, Supple Chest: Symmetrical Cardiovascular: Rhythm Regular Respiratory: Normal Breath Sounds, No Rales, No Rhonchi, No Wheezing Gastrointestinal/Abdominal: Soft, Tenderness, No Guarding, No Rebound Back: No CVA Tenderness Neurological/Psych: Oriented x3 ED Course And Treatment - Laboratory Results Result Diagrams: 02/09/17 06:45 02/09/17 06:45 O2 Sat by Pulse Oximetry: 99 (RA) Pulse Ox Interpretation: Normal Progress Note: Blood work, Patient is on NPO. Spoke to Dr. Conway who requested Dozin and admission to hospitalist. Disposition - Disposition Disposition: HOSPITALIZED Disposition Time: 13:00 Condition: STABLE - Clinical Impression Clinical Impression: Hidradenitis suppurativa, UTI (urinary tract infection), Anemia, Hypokalemia - PA / MILLINERY COPYIST / Resident Statement MD/DO has reviewed & agrees with the documentation as recorded. - Scribe Statement The provider has reviewed the documentation as recorded by the Modesta Carter All medical record entries made by the Modesta were at my direction and personally dictated by me. I have reviewed the chart and agree that the record accurately reflects my personal performance of the history, physical exam, medical decision making, and the department course for this patient. I have also personally directed, reviewed, and agree with the discharge instructions and disposition.
[2017-02-08 13:09] LABS: BASO # 0.1 K/uL (0.0-0.2); BASO % 0.8 % (0.0-2.0); EOS # 0.2 K/uL (0.0-0.7); EOS % 1.7 % (0.0-4.0); HEMATOCRIT 29.4 % (34.0-47.0); LYMPH # 1.1 K/uL (1.0-4.3); LYMPH % 7.8 % (20.0-40.0); MEAN CORPUSCULAR HEMOGLOBIN 20.8 pg (27.0-31.0); MEAN CORPUSCULAR HGB CONC 30.2 g/dL (33.0-37.0); MEAN PLATELET VOLUME 6.1 fL (7.2-11.7); MONO # 1.1 K/uL (0.0-0.8); MONO % 7.5 % (0.0-10.0); PLATELET COUNT 570 K/uL (130-400); RED CELL DISTRIBUTION WIDTH 18.3 % (11.5-14.5); WHITE BLOOD COUNT 14.3 K/uL (4.8-10.8)
[2017-02-08 13:19] LABS: INR 1.4
[2017-02-08 13:30] LABS: RBC URINE 26 /hpf (0-3); URINE BACTERIA RARE (<OCC); URINE BILIRUBIN NEGATIVE (NEGATIVE); URINE BLOOD 2+ (NEGATIVE); URINE COLOR Amber (YELLOW); URINE GLUCOSE (UA) NORMAL (Normal); URINE KETONE NEGATIVE (NEGATIVE); URINE LEUKOCYTE ESTERASE 3+ Leu/uL (Negative); URINE PROTEIN 2+ mg/dL (NEGATIVE); URINE UROBILINOGEN NORMAL mg/dL (0.2-1.0); WBC CLUMPS FEW /hpf; WBC URINE 123 /hpf (0-5)
[2017-02-08 13:37] LABS: EOSINOPHIL 2 % (0-4); NEUTROPHIL 73 % (50-75); TOTAL CELLS COUNTED 100
[2017-02-08 13:41] LABS: ALKALINE PHOSPHATASE 183 U/L (38-126); ALT/SGPT 12 U/L (9-52); AST/SGOT 19 U/L (14-36); BILIRUBIN,TOTAL 0.4 mg/dL (0.2-1.3); BLOOD UREA NITROGEN 3 mg/dL (7-17); CALCIUM 7.4 mg/dl (8.6-10.4); CARBON DIOXIDE 27 mmol/L (22-30); CHLORIDE 98 mmol/L (98-107); GFR AFRICAN-AMERICAN > 60; GLUCOSE,RANDOM 104 mg/dL (65-105); POTASSIUM 3.1 mmol/L (3.6-5.2); SODIUM 128 mmol/L (132-148); TOTAL PROTEIN 9.4 g/dL (6.3-8.3)
[2017-02-08 13:48] LABS: ALB/GLOB RATIO 0.5 (1.0-2.1)
[2017-02-08] MEDS ORDERED: Piperacillin/Tazobact 3.375 gm 100 ML IV STA (13:52)
[2017-02-08] MEDS ORDERED: Potassium Chloride 20 mEq ER Tab PO STA (13:56)
[2017-02-08] MEDS ORDERED: Sodium Chloride 0.9% 1,000 ML IV ONE (13:56)
[2017-02-08] MEDS ORDERED: Potassium Chloride 20 mEq ER Tab PO ONE ×2 (14:01→14:03)
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
[2017-02-08] MEDS ORDERED: Piperacillin/Tazobact 3.375 GM in Sodium Chloride 100 ML IVPB SCH (16:45)
[2017-02-08] MEDS ORDERED: Iodixanol 320 MG/ML 100 ML BOTTLE IV ONE (16:55)
--- NOTE | 2017-02-08 17:26 | CP.PCM.CON ---
<Ever Delatorre - Last Filed: 02/08/17 18:02> History of Present Illness - History of Present Illness History of Present Illness: General Surgery 41F presents to ED with "rash" in her left groin. She stated it started a year and a half ago as a pimple and quickly spread. It now extends from the front of left groin around down to her buttock. She states she only has pain when it is pressed. Began discharging pus three months ago. Pt went to clinic on 02/03; patient given minocycline and was referred to Dr. Sanchez. Had one episode of fever and chills three weeks ago. Denies dysuria, abdominal pain, nausea, or vomiting. PMH: Anemia PSH: D&C 2014 SH: denies tobacco. Drinks socially. Admits to snorting cocaine; last time 3 weeks ago. All: NKDA Med: Minocycline 50mg BID, Lexapro 10mg Review of Systems - Review of Systems All systems: reviewed and no additional remarkable complaints except (as per HPI ) Past Patient History - Past Medical History & Family History Past Medical History?: Yes - Past Social History Smoking Status: Never Smoked - CARDIAC Hx Cardiac Disorders: No - PULMONARY Hx Respiratory Disorders: No - NEUROLOGICAL Hx Neurological Disorder: No - HEENT Hx HEENT Problems: No - RENAL Hx Chronic Kidney Disease: No - ENDOCRINE/METABOLIC Hx Endocrine Disorders: No - HEMATOLOGICAL/ONCOLOGICAL Hx Anemia: Yes - INTEGUMENTARY Other/Comment: Pus filled drainage on left anterior pubis - MUSCULOSKELETAL/RHEUMATOLOGICAL Hx Falls: No - GASTROINTESTINAL Hx Gastrointestinal Disorders: No - GENITOURINARY/GYNECOLOGICAL Hx Genitourinary Disorders: No - PSYCHIATRIC Hx Substance Use: No - SURGICAL HISTORY Hx Surgeries: No - ANESTHESIA Hx Anesthesia: No Meds Allergies/Adverse Reactions: Allergies Allergy/AdvReac Type Severity Reaction Status Date / Time No Known Allergies Allergy Verified 02/08/17 11:20 - Medications Medications: Current Medications Piperacillin Sod/Tazobactam Sod (Zosyn 3.375 Gm Iv Premix) 3.375 gm in 50 mls @ 100 mls/hr IVPB Q6H EYAL Physical Exam - Constitutional Appears: Non-toxic, No Acute Distress - Head Exam Head Exam: ATRAUMATIC, NORMOCEPHALIC - Eye Exam Eye Exam: EOMI. absent: Scleral icterus - ENT Exam ENT Exam: Mucous Membranes Moist Additional comments: trachea midline - Respiratory Exam Respiratory Exam: NORMAL BREATHING PATTERN. absent: Respiratory Distress - Cardiovascular Exam Cardiovascular Exam: RRR. absent: Bradycardia, Tachycardia - GI/Abdominal Exam GI & Abdominal Exam: Soft. absent: Distended, Guarding, Rebound, Rigid, Tenderness - Rectal Exam Rectal Exam: Deferred - Extremities Exam Extremities exam: Positive for: normal inspection. Negative for: calf tenderness, pedal edema - Neurological Exam Neurological exam: Alert, Oriented x3 - Psychiatric Exam Psychiatric exam: Normal Affect, Normal Mood - Skin Skin Exam: Dry, Warm - Additional Findings Additional findings: Lesions resembling hidradenitis in suprapubic region extending into left groin down to left buttock region along gluteal cleft. Pus was expressed from some parts of this area. Results - Vital Signs Recent Vital Signs: Last Vital Signs Temp 98.8 F 02/08/17 11:16 Pulse 97 H 02/08/17 16:53 Resp 18 02/08/17 16:53 BP 113/70 02/08/17 16:53 Pulse Ox 100 02/08/17 16:53 - Labs Result Diagrams: 02/08/17 13:02 02/08/17 13:02 Labs: Laboratory Results - last 24 hr 02/08/17 02/08/17 02/08/17 13:02 13:02 13:02 WBC 14.3 H RBC 4.27 Hgb 8.9 L Hct 29.4 L MCV 69.0 L MCH 20.8 L MCHC 30.2 L RDW 18.3 H Plt Count 570 H D MPV 6.1 L Neut % (Auto) 82.2 H Lymph % (Auto) 7.8 L [place] % (Auto) 7.5 Eos % (Auto) 1.7 Baso % (Auto) 0.8 Neut # 11.7 H Lymph # 1.1 [place] # 1.1 H Eos # 0.2 Baso # 0.1 Neutrophils % (Manual) 73 Band Neutrophils % 2 Lymphocytes % (Manual) 15 L Monocytes % (Manual) 8 Eosinophils % (Manual) 2 Platelet Estimate Slightly increased H Hypochromasia (manual) Moderate Anisocytosis (manual) Slight Microcytosis (manual) Moderate PT 15.3 H INR 1.4 APTT 36 H Sodium 128 L Potassium 3.1 L Chloride 98 Carbon Dioxide 27 Anion Gap 6 L BUN 3 L Creatinine 0.5 L Est GFR ( Amer) > 60 Est GFR (Non-Af Amer) > 60 Random Glucose 104 Calcium 7.4 L Total Bilirubin 0.4 AST 19 ALT 12 Alkaline Phosphatase 183 H Total Protein 9.4 H Albumin 3.0 L Globulin 6.4 H Albumin/Globulin Ratio 0.5 L Urine Color Urine Clarity Urine pH Ur Specific [place] Urine Protein Urine Glucose (UA) Urine Ketones Urine Blood Urine Nitrate Urine Bilirubin Urine Urobilinogen Ur Leukocyte Esterase Urine WBC (Auto) Urine RBC (Auto) Urine WBC Clumps (Auto) Ur Squamous Epith Cells Urine Bacteria Urine HCG, Qual Blood Type Antibody Screen PHILLY, Poly Interpret 02/08/17 02/08/17 13:02 13:02 WBC RBC Hgb Hct MCV MCH MCHC RDW Plt Count MPV Neut % (Auto) Lymph % (Auto) [place] % (Auto) Eos % (Auto) Baso % (Auto) Neut # Lymph # [place] # Eos # Baso # Neutrophils % (Manual) Band Neutrophils % Lymphocytes % (Manual) Monocytes % (Manual) Eosinophils % (Manual) Platelet Estimate Hypochromasia (manual) Anisocytosis (manual) Microcytosis (manual) PT INR APTT Sodium Potassium Chloride Carbon Dioxide Anion Gap BUN Creatinine Est GFR ( Amer) Est GFR (Non-Af Amer) Random Glucose Calcium Total Bilirubin AST ALT Alkaline Phosphatase Total Protein Albumin Globulin Albumin/Globulin Ratio Urine Color [place]vet[place]ana Urine Clarity Hazy Urine pH 6.0 Ur Specific [place] 1.018 Urine Protein 2+ H Urine Glucose (UA) Normal Urine Ketones Negative Urine Blood 2+ H Urine Nitrate Negative Urine Bilirubin Negative Urine Urobilinogen Normal Ur Leukocyte Esterase 3+ H Urine WBC (Auto) 123 H Urine RBC (Auto) 26 H Urine WBC Clumps (Auto) Few H Ur Squamous Epith Cells 9 H Urine Bacteria Rare Urine HCG, Qual Negative Blood Type B POSITIVE Antibody Screen Positive PHILLY, Poly Interpret Negative - Imaging and Cardiology CT scan - abdomen Status: Image reviewed by me, Pending (report) Assessment & Plan - Assessment and Plan (Free Text) Assessment: 41F with hidradenitis in left suprapubic area, left groin, and left gluteal cleft. Plan: - Wound cultured - Started Zosyn - F/U CT abdomen read - Possible OR on Monday D/W Dr. Laura Delatorre PGY4 <Shaka Sanchez - Last Filed: 02/10/17 23:08> Meds - Medications Medications: Current Medications Acetaminophen (Tylenol 325mg Tab) 650 mg PO Q6 PRN PRN Reason: Pain, Mild (1-3) Escitalopram Oxalate (Lexapro) 10 mg PO DAILY [facility] Last Admin: 02/10/17 10:12 Dose: Not Given Famotidine (Pepcid) 20 mg PO BID [facility] Last Admin: 02/10/17 17:31 Dose: 20 mg Ferrous Sulfate (Feosol) 325 mg PO DAILY [facility] Last Admin: 02/10/17 10:09 Dose: Not Given Heparin Sodium (Porcine) (Heparin) 5,000 units SC Q8 [facility] Last Admin: 02/09/17 22:47 Dose: 5,000 units Piperacillin Sod/Tazobactam Sod (Zosyn 3.375 Gm Iv Premix) 3.375 gm in 50 mls @ 100 mls/hr IVPB Q6H [facility] Last Admin: 02/10/17 20:57 Dose: 100 mls/hr Vancomycin HCl 1 gm/ Sodium (Chloride) 250 mls @ 166.7 mls/hr IVPB Q24H [facility] Last Admin: 02/10/17 17:32 Dose: 166.7 mls/hr Sodium Chloride (Sodium Chloride 0.9%) 1,000 mls @ 100 mls/hr IV .Q10H [facility] Last Admin: 02/10/17 21:43 Dose: 100 mls/hr Morphine Sulfate (Morphine) 4 mg IVP Q4 PRN PRN Reason: Pain, severe (8-10) Ondansetron HCl (Zofran Inj) 4 mg IVP Q4 PRN PRN Reason: Nausea/Vomiting Oxycodone/Acetaminophen (Percocet 5/325 Mg Tab) 1 tab PO Q4H PRN PRN Reason: Pain, moderate (4-7) Stop: 02/13/17 16:20 Results - Vital Signs Recent Vital Signs: Last Vital Signs Temp 98.8 F 02/10/17 17:00 Pulse 67 02/10/17 17:00 Resp 17 02/10/17 17:00 BP 95/59 L 02/10/17 17:00 Pulse Ox 100 02/10/17 17:00 - Labs Result Diagrams: 02/10/17 07:54 02/10/17 07:54 Labs: Laboratory Results - last 24 hr 02/10/17 02/10/17 02/10/17 07:54 07:54 09:45 WBC 9.9 RBC 4.00 Hgb 8.5 L Hct 27.7 L MCV 69.2 L MCH 21.2 L MCHC 30.6 L RDW 18.0 H Plt Count 534 H MPV 6.1 L Neut % (Auto) 68.6 Lymph % (Auto) 17.2 L [place] % (Auto) 9.3 Eos % (Auto) 3.9 Baso % (Auto) 1.0 Neut # 6.8 Lymph # 1.7 [place] # 0.9 H Eos # 0.4 Baso # 0.1 Sodium 139 Potassium 4.3 Chloride 105 Carbon Dioxide 30 Anion Gap 9 L BUN 3 L Creatinine 0.6 L Est GFR ( Amer) > 60 Est GFR (Non-Af Amer) > 60 Random Glucose 84 Calcium 7.4 L Phosphorus 3.8 Magnesium 1.8 Total Bilirubin 0.7 AST 15 ALT 23 Alkaline Phosphatase 163 H Total Protein 7.6 Albumin 2.6 L Globulin 4.9 H Albumin/Globulin Ratio 0.5 L Urine HCG, Qual Negative Attending/Attestation - Attestation I have personally seen and examined this patient.: Yes I have fully participated in the care of the patient.: Yes I have reviewed all pertinent clinical information: Yes Notes (Text): Pt was seen and examined at bedside Agree with above note and assessment Pt with Severe Hydradenitis of Left groin, Left labia majora, and Left thigh Labs and radiology reviewed Mild tenderness with pus discharge all over IV antibiotics Medical clearance Repeat labs in am c.w current mx Plan d/w pt in detail Risk and benefit explained in detail.
--- NOTE | 2017-02-08 18:28 | CT ---
PROCEDURE: CT Abdomen and Pelvis with contrast HISTORY: pelvic skin abscesses COMPARISON: None. TECHNIQUE: CT scan of the abdomen and pelvis was performed after intravenous administration of contrast. Oral contrast was not administered. Coronal and sagittal reformatted images were obtained. Contrast dose: 100 mL Visipaque 320 Radiation dose: Total exam DLP = 296.10 mGy-cm. This CT exam was performed using one or more of the following dose reduction techniques: Automated exposure control, adjustment of the mA and/or kV according to patient size, and/or use of iterative reconstruction technique. FINDINGS: LOWER THORAX: The visualized lungs are clear. LIVER: The liver is normal in size and there is diffuse fatty infiltration. No gross lesion or ductal dilatation. GALLBLADDER AND BILE DUCTS: The gallbladder is contracted. PANCREAS: Normal in size with homogeneous enhancement. No gross lesion or ductal dilatation. SPLEEN: Mild enlargement without focal lesion. ADRENALS: No discrete nodule. KIDNEYS AND URETERS: Normal in size and homogeneous enhancement. No hydronephrosis. No solid mass. VASCULATURE: Unremarkable. No aortic aneurysm. BOWEL: The small bowel loops are normal in caliber. There is moderate amount of stool scattered throughout the colon. No bowel dilatation or obstruction APPENDIX: Normal appendix. PERITONEUM: No free fluid. No free air. LYMPH NODES: There is bilateral inguinal lymphadenopathy, worse on the left. BLADDER: Unremarkable. REPRODUCTIVE: Unremarkable. BONES: No acute fracture. Within normal limits for the patient's age. OTHER FINDINGS: There is abnormal enhancing subcutaneous soft tissue in the left lower pelvic wall extending to the left perineum as well as left medial thigh and posteromedially gluteal soft tissues. No evidence of abscess or drainable fluid collection. IMPRESSION: Findings are most compatible with cellulitis and phlegmonous changes in the left lower pelvic wall, perineum, medial thigh and posteromedially gluteal soft tissues without evidence of drainable abscess or fluid collection. Also noted is reactive bilateral inguinal lymphadenopathy, worse on the left. Fatty liver and mild splenomegaly.
[2017-02-08] MEDS: Sodium Chloride 0.9% 1,000 ML IV SCH (18:40)
[2017-02-08] MEDS: Piperacill/Tazo 3.375gm in Dex 3.375 GM/50 ML BAG IVPB SCH (23:19)
[2017-02-09] MEDS: Piperacill/Tazo 3.375gm in Dex 3.375 GM/50 ML BAG IVPB SCH ×4 (03:00→20:14)
[2017-02-09] MEDS: Sodium Chloride 0.9% 1,000 ML IV SCH ×2 (04:00→13:08)
[2017-02-09 06:50] LABS: BASO # 0.1 K/uL (0.0-0.2); BASO % 0.7 % (0.0-2.0); EOS # 0.3 K/uL (0.0-0.7); EOS % 1.9 % (0.0-4.0); HEMATOCRIT 28.4 % (34.0-47.0); LYMPH # 1.9 K/uL (1.0-4.3); LYMPH % 11.5 % (20.0-40.0); MEAN CELL VOLUME 68.6 fL (81.0-99.0); MEAN CORPUSCULAR HEMOGLOBIN 21.1 pg (27.0-31.0); MEAN CORPUSCULAR HGB CONC 30.8 g/dL (33.0-37.0); MEAN PLATELET VOLUME 6.2 fL (7.2-11.7); MONO # 1.4 K/uL (0.0-0.8); MONO % 8.4 % (0.0-10.0); NRBC % 0.1 % (0.0-2.0); RED CELL DISTRIBUTION WIDTH 18.2 % (11.5-14.5); WHITE BLOOD COUNT 16.7 K/uL (4.8-10.8)
[2017-02-09 07:01] LABS: INR 1.4
--- NOTE | 2017-02-09 07:34 | CP.PCM.PN ---
<Magalie Aguilar - Last Filed: 02/09/17 13:47> Subjective - Date & Time of Evaluation Date of Evaluation: 02/09/17 Time of Evaluation: 07:33 - Subjective Subjective: Medicine Progress Note for Dr. Yeager Patient was seen and examined at bedside in no acute distress. Patient reports she feels tired because she did not sleep well overnight. She reports she has some bloody drainage from the left groin lesion and mild pain. Patient otherwise has no complaints. Patient denies having chest pain, abdominal pain, shortness of breath, nausea, vomiting, fevers, headache, and leg pain/swelling. Objective - Vital Signs/Intake and Output Vital Signs (last 24 hours): Temp Pulse Resp BP Pulse Ox 98.7 F 94 H 20 103/67 100 02/09/17 05:52 02/09/17 05:52 02/09/17 03:30 02/09/17 05:52 02/09/17 05:52 - Medications Medications: Current Medications Escitalopram Oxalate (Lexapro) 10 mg PO DAILY [facility] Famotidine (Pepcid) 20 mg PO BID [facility] Last Admin: 02/08/17 18:40 Dose: 20 mg Ferrous Sulfate (Feosol) 325 mg PO DAILY [facility] Heparin Sodium (Porcine) (Heparin) 5,000 units SC Q8 [facility] Last Admin: 02/08/17 23:19 Dose: 5,000 units Piperacillin Sod/Tazobactam Sod (Zosyn 3.375 Gm Iv Premix) 3.375 gm in 50 mls @ 100 mls/hr IVPB Q6H [facility] Last Admin: 02/09/17 03:00 Dose: 100 mls/hr Vancomycin HCl 1 gm/ Sodium (Chloride) 250 mls @ 166.7 mls/hr IVPB Q24H [facility] Last Admin: 02/08/17 19:01 Dose: 166.7 mls/hr Sodium Chloride (Sodium Chloride 0.9%) 1,000 mls @ 100 mls/hr IV .Q10H [facility] Last Admin: 02/09/17 04:00 Dose: 100 mls/hr - Labs Labs: 02/09/17 06:45 02/08/17 13:02 PT 15.8 SECONDS (9.7-12.2) H 02/09/17 06:45 INR 1.4 02/09/17 06:45 APTT 37 SECONDS (21-34) H 02/09/17 06:45 - Constitutional Appears: No Acute Distress - Head Exam Head Exam: ATRAUMATIC, NORMAL INSPECTION - Eye Exam Eye Exam: EOMI, Normal appearance - ENT Exam ENT Exam: Mucous Membranes Moist Additional comments: Poor dentition - Respiratory Exam Respiratory Exam: Clear to Ausculation Bilateral, NORMAL BREATHING PATTERN. absent: Rales, Rhonchi, Wheezes, Respiratory Distress - Cardiovascular Exam Cardiovascular Exam: REGULAR RHYTHM, +S1, +S2 - GI/Abdominal Exam GI & Abdominal Exam: Soft, Normal Bowel Sounds. absent: Distended, Firm, Tenderness - Exam Additional comments: Left groin lesion- sanguinous purulent drainage; erythema, swelling extending from suprapubic region to gluteal - Neurological Exam Neurological Exam: Alert, Awake, Oriented x3 - Psychiatric Exam Psychiatric exam: Normal Affect, Normal Mood - Skin Skin Exam: Dry, Warm Assessment and Plan (1) Hidradenitis suppurativa Status: Acute (2) Anemia Status: Acute (3) Depression Status: Acute (4) Substance abuse Status: Acute (5) Electrolyte imbalance Status: Acute (6) Prophylactic measure Status: Acute - Assessment and Plan (Free Text) Plan: (1) Hidradenitis suppurativa Assessment and Plan: * Abdomen/Pelvic CT: findings compatible with cellulitis and phlegmonous changes in left lower pelvic wall, perineum, medial thigh, and posteromedially gluteal soft tissues without evidence of drainable abscess or fluid collections ; reactive b/l inguinal lymphadenopathy, worse on left; fatty liver and mild splenomegaly * Surgery consulted, Dr. Sanchez, help appreciated * WBC 14.3 * PTT 36, PT 15.3, INR 1.4 * CXR: no active disease * EKG: normal sinus rhythm @88bpm * Blood cx: f/u results * Wound cx: no growth after 24hrs * Urine cx: f/u results * Continue Zosyn 3.375 IV Q6H and Vanco 1gm IV Q24h * Scheduled for OR on Monday with Dr. Sanchez--> NPO@MN (2) Anemia Assessment and Plan: * Hgb 8.9 * Type and screen * Continue Feosol 325mg PO daily * Repeat CBC on 02/09- Hgb 8.7 * Continue to monitor (3) Depression Assessment and Plan: * Continue Lexapro 10mg PO daily (4) Substance abuse Assessment and Plan: * "infrequent" crack/methamphetamine abuse * Patient reports she goes to substance abuse counseling across the street * Continue Lexapro 10mg PO daily (prescribed by clinic) (5) Electrolyte imbalance Assessment and Plan: * Hypokalemia K3.1 in ED--> repleted (6) Prophylactic measure Assessment and Plan: Pepcid 20mg PO BID Heparin 5000u SC Q8h [facility] <Herman Yeager H - Last Filed: 02/09/17 15:19> Objective - Vital Signs/Intake and Output Vital Signs (last 24 hours): Temp Pulse Resp BP Pulse Ox 98.5 F 78 17 101/60 99 02/09/17 08:00 02/09/17 08:00 02/09/17 08:00 02/09/17 08:00 02/09/17 13:31 Intake and Output: 02/09/17 02/09/17 06:59 18:59 Intake Total 460 Balance 460 - Medications Medications: Current Medications Escitalopram Oxalate (Lexapro) 10 mg PO DAILY [facility] Last Admin: 02/09/17 10:08 Dose: 10 mg Famotidine (Pepcid) 20 mg PO BID [facility] Last Admin: 02/09/17 10:08 Dose: 20 mg Ferrous Sulfate (Feosol) 325 mg PO DAILY [facility] Last Admin: 02/09/17 10:08 Dose: 325 mg Heparin Sodium (Porcine) (Heparin) 5,000 units SC Q8 [facility] Last Admin: 02/09/17 13:06 Dose: 5,000 units Piperacillin Sod/Tazobactam Sod (Zosyn 3.375 Gm Iv Premix) 3.375 gm in 50 mls @ 100 mls/hr IVPB Q6H [facility] Last Admin: 02/09/17 14:47 Dose: 100 mls/hr Vancomycin HCl 1 gm/ Sodium (Chloride) 250 mls @ 166.7 mls/hr IVPB Q24H [facility] Last Admin: 02/08/17 19:01 Dose: 166.7 mls/hr Sodium Chloride (Sodium Chloride 0.9%) 1,000 mls @ 100 mls/hr IV .Q10H [facility] Last Admin: 02/09/17 13:08 Dose: 100 mls/hr - Labs Labs: 02/09/17 06:45 02/09/17 06:45 PT 15.8 SECONDS (9.7-12.2) H 02/09/17 06:45 INR 1.4 02/09/17 06:45 APTT 37 SECONDS (21-34) H 02/09/17 06:45 Attending/Attestation - Attestation I have personally seen and examined this patient.: Yes I have fully participated in the care of the patient.: Yes I have reviewed all pertinent clinical information, including history, physical exam and plan: Yes Notes (Text): 02/09/17 15:18 Medical attending: Patient was seen and examined by me, agrees the above note by medical office assistant instructor. The patient was not under any acute distress when I saw her. She is still having some minimal drainage from the left suprapubic and left gluteal area that 's affected by the hidradenitis. She completed a CT scan yesterday night. The patient is currently on IV antibiotics, surgery is pending for tomorrow Thank you very much, Herman Yeager
[2017-02-09 07:47] LABS: ALB/GLOB RATIO 0.5 (1.0-2.1); ALKALINE PHOSPHATASE 199 U/L (38-126); ALT/SGPT 27 U/L (9-52); AST/SGOT 29 U/L (14-36); BILIRUBIN,TOTAL 0.5 mg/dL (0.2-1.3); BLOOD UREA NITROGEN 4 mg/dL (7-17); CALCIUM 7.4 mg/dl (8.6-10.4); CARBON DIOXIDE 25 mmol/L (22-30); CHLORIDE 100 mmol/L (98-107); GFR AFRICAN-AMERICAN > 60; GLUCOSE,RANDOM 85 mg/dL (65-105); MAGNESIUM 1.8 mg/dL (1.6-2.3); PHOSPHOROUS 3.5 mg/dL (2.5-4.5); POTASSIUM 4.1 mmol/L (3.6-5.2); SODIUM 134 mmol/L (132-148); TOTAL PROTEIN 8.8 g/dL (6.3-8.3)
--- NOTE | 2017-02-09 08:44 | RAD ---
HISTORY: pre-op clearance COMPARISON: 11/03/2016 FINDINGS: LUNGS: No active pulmonary disease. PLEURA: No significant pleural effusion identified, no pneumothorax apparent. CARDIOVASCULAR: Normal. OSSEOUS STRUCTURES: No significant abnormalities. VISUALIZED UPPER ABDOMEN: Normal. OTHER FINDINGS: None. IMPRESSION: No active disease.
--- NOTE | 2017-02-09 09:29 | CP.PCM.PN ---
<Ever Delatorre - Last Filed: 02/09/17 09:26> Subjective - Date & Time of Evaluation Date of Evaluation: 02/09/17 Time of Evaluation: 09:00 - Subjective Subjective: General Surgery Pt S&E, NAEO. Afebrile. Had more drainage from hidradenitis in L groin. No other C/O. Objective - Vital Signs/Intake and Output Vital Signs (last 24 hours): Temp Pulse Resp BP Pulse Ox 98.7 F 76 18 103/67 98 02/09/17 05:52 02/09/17 07:57 02/09/17 07:57 02/09/17 05:52 02/09/17 07:57 - Medications Medications: Current Medications Escitalopram Oxalate (Lexapro) 10 mg PO DAILY [facility] Famotidine (Pepcid) 20 mg PO BID [facility] Last Admin: 02/08/17 18:40 Dose: 20 mg Ferrous Sulfate (Feosol) 325 mg PO DAILY [facility] Heparin Sodium (Porcine) (Heparin) 5,000 units SC Q8 [facility] Last Admin: 02/08/17 23:19 Dose: 5,000 units Piperacillin Sod/Tazobactam Sod (Zosyn 3.375 Gm Iv Premix) 3.375 gm in 50 mls @ 100 mls/hr IVPB Q6H [facility] Last Admin: 02/09/17 03:00 Dose: 100 mls/hr Vancomycin HCl 1 gm/ Sodium (Chloride) 250 mls @ 166.7 mls/hr IVPB Q24H [facility] Last Admin: 02/08/17 19:01 Dose: 166.7 mls/hr Sodium Chloride (Sodium Chloride 0.9%) 1,000 mls @ 100 mls/hr IV .Q10H [facility] Last Admin: 02/09/17 04:00 Dose: 100 mls/hr - Labs Labs: 02/09/17 06:45 02/09/17 06:45 PT 15.8 SECONDS (9.7-12.2) H 02/09/17 06:45 INR 1.4 02/09/17 06:45 APTT 37 SECONDS (21-34) H 02/09/17 06:45 - Constitutional Appears: Non-toxic, No Acute Distress - Head Exam Head Exam: ATRAUMATIC, NORMOCEPHALIC - Eye Exam Eye Exam: EOMI. absent: Scleral icterus - Respiratory Exam Respiratory Exam: NORMAL BREATHING PATTERN. absent: Respiratory Distress - GI/Abdominal Exam GI & Abdominal Exam: Soft. absent: Distended, Tenderness - Neurological Exam Neurological Exam: Alert, Awake - Skin Skin Exam: Dry, Warm - Additional Findings Additional findings: L Groin with purulent drainage from wounds, multiple scars Assessment and Plan - Assessment and Plan (Free Text) Assessment: 41F with hidradenitis in left suprapubic area, left groin, and left gluteal cleft. Plan: Continue Abx on Vanco and zosyn OR tomorrow Am Labs, monitor leukocytosis F/U cultures D/W Dr. Laura Delatorre PGY4 <Shaka Sanchez B - Last Filed: 02/10/17 23:10> Objective - Vital Signs/Intake and Output Vital Signs (last 24 hours): Temp Pulse Resp BP Pulse Ox 98.8 F 67 17 95/59 L 100 02/10/17 17:00 02/10/17 17:00 02/10/17 17:00 02/10/17 17:00 02/10/17 17:00 Intake and Output: 02/10/17 02/11/17 18:59 06:59 Intake Total 0 1050 Balance 0 1050 - Medications Medications: Current Medications Acetaminophen (Tylenol 325mg Tab) 650 mg PO Q6 PRN PRN Reason: Pain, Mild (1-3) Escitalopram Oxalate (Lexapro) 10 mg PO DAILY [facility] Last Admin: 02/10/17 10:12 Dose: Not Given Famotidine (Pepcid) 20 mg PO BID [facility] Last Admin: 02/10/17 17:31 Dose: 20 mg Ferrous Sulfate (Feosol) 325 mg PO DAILY [facility] Last Admin: 02/10/17 10:09 Dose: Not Given Heparin Sodium (Porcine) (Heparin) 5,000 units SC Q8 [facility] Last Admin: 02/09/17 22:47 Dose: 5,000 units Piperacillin Sod/Tazobactam Sod (Zosyn 3.375 Gm Iv Premix) 3.375 gm in 50 mls @ 100 mls/hr IVPB Q6H [facility] Last Admin: 02/10/17 20:57 Dose: 100 mls/hr Vancomycin HCl 1 gm/ Sodium (Chloride) 250 mls @ 166.7 mls/hr IVPB Q24H [facility] Last Admin: 02/10/17 17:32 Dose: 166.7 mls/hr Sodium Chloride (Sodium Chloride 0.9%) 1,000 mls @ 100 mls/hr IV .Q10H [facility] Last Admin: 02/10/17 21:43 Dose: 100 mls/hr Morphine Sulfate (Morphine) 4 mg IVP Q4 PRN PRN Reason: Pain, severe (8-10) Ondansetron HCl (Zofran Inj) 4 mg IVP Q4 PRN PRN Reason: Nausea/Vomiting Oxycodone/Acetaminophen (Percocet 5/325 Mg Tab) 1 tab PO Q4H PRN PRN Reason: Pain, moderate (4-7) Stop: 02/13/17 16:20 - Labs Labs: 02/10/17 07:54 02/10/17 07:54 PT 15.8 SECONDS (9.7-12.2) H 02/09/17 06:45 INR 1.4 02/09/17 06:45 APTT 37 SECONDS (21-34) H 02/09/17 06:45 Attending/Attestation - Attestation I have personally seen and examined this patient.: Yes I have fully participated in the care of the patient.: Yes I have reviewed all pertinent clinical information, including history, physical exam and plan: Yes Notes (Text): Pt was seen and examined at bedside Agree with above note and assessment Pt with Severe hydradenitis OR for Exploration and I & D tomorrow C/w IV antibiotics Consent NPO, IVF c.w current mx Plan d/w pt in detail Risk and benefit explained in detail.
--- NOTE | 2017-02-09 21:47 | CARD ---
APPROVED REPORT EKG Measurement Heart [id number] <Conclusion> Normal sinus rhythm Normal ECG
[2017-02-10] MEDS: Piperacill/Tazo 3.375gm in Dex 3.375 GM/50 ML BAG IVPB SCH ×4 (03:03→20:57)
[2017-02-10] MEDS: Sodium Chloride 0.9% 1,000 ML IV SCH ×5 (03:45→21:43)
[2017-02-10 08:13] LABS: BASO # 0.1 K/uL (0.0-0.2); EOS # 0.4 K/uL (0.0-0.7); EOS % 3.9 % (0.0-4.0); HEMATOCRIT 27.7 % (34.0-47.0); LYMPH # 1.7 K/uL (1.0-4.3); LYMPH % 17.2 % (20.0-40.0); MEAN CELL VOLUME 69.2 fL (81.0-99.0); MEAN CORPUSCULAR HEMOGLOBIN 21.2 pg (27.0-31.0); MEAN CORPUSCULAR HGB CONC 30.6 g/dL (33.0-37.0); MEAN PLATELET VOLUME 6.1 fL (7.2-11.7); MONO # 0.9 K/uL (0.0-0.8); MONO % 9.3 % (0.0-10.0); WHITE BLOOD COUNT 9.9 K/uL (4.8-10.8)
[2017-02-10 08:25] LABS: ALB/GLOB RATIO 0.5 (1.0-2.1); ALKALINE PHOSPHATASE 163 U/L (38-126); ALT/SGPT 23 U/L (9-52); AST/SGOT 15 U/L (14-36); BILIRUBIN,TOTAL 0.7 mg/dL (0.2-1.3); BLOOD UREA NITROGEN 3 mg/dL (7-17); CALCIUM 7.4 mg/dl (8.6-10.4); CARBON DIOXIDE 30 mmol/L (22-30); CHLORIDE 105 mmol/L (98-107); GFR AFRICAN-AMERICAN > 60; GLUCOSE,RANDOM 84 mg/dL (65-105); MAGNESIUM 1.8 mg/dL (1.6-2.3); PHOSPHOROUS 3.8 mg/dL (2.5-4.5); POTASSIUM 4.3 mmol/L (3.6-5.2); SODIUM 139 mmol/L (132-148); TOTAL PROTEIN 7.6 g/dL (6.3-8.3)
--- NOTE | 2017-02-10 09:42 | CP.PCM.PN ---
<Magalie Aguilar - Last Filed: 02/10/17 15:16> Subjective - Date & Time of Evaluation Date of Evaluation: 02/10/17 Time of Evaluation: 09:40 - Subjective Subjective: Medicine Progress Note for Dr. Yeager Patient was seen and examined at bedside in no acute distress. Patient feels well and has no complaints. She reports she has drainage from the left groin lesion. Patient denies having chest pain, abdominal pain, fevers, nausea, vomiting, and headaches. Objective - Vital Signs/Intake and Output Vital Signs (last 24 hours): Temp Pulse Resp BP Pulse Ox 98.4 F 79 20 95/60 L 97 02/10/17 07:59 02/10/17 07:59 02/10/17 07:59 02/10/17 07:59 02/10/17 07:59 Intake and Output: 02/10/17 02/10/17 06:59 18:59 Intake Total 2650 Balance 2650 - Medications Medications: Current Medications Escitalopram Oxalate (Lexapro) 10 mg PO DAILY [facility] Last Admin: 02/09/17 10:08 Dose: 10 mg Famotidine (Pepcid) 20 mg PO BID [facility] Last Admin: 02/09/17 18:52 Dose: 20 mg Ferrous Sulfate (Feosol) 325 mg PO DAILY [facility] Last Admin: 02/09/17 10:08 Dose: 325 mg Heparin Sodium (Porcine) (Heparin) 5,000 units SC Q8 [facility] Last Admin: 02/09/17 22:47 Dose: 5,000 units Piperacillin Sod/Tazobactam Sod (Zosyn 3.375 Gm Iv Premix) 3.375 gm in 50 mls @ 100 mls/hr IVPB Q6H [facility] Last Admin: 02/10/17 03:03 Dose: 100 mls/hr Vancomycin HCl 1 gm/ Sodium (Chloride) 250 mls @ 166.7 mls/hr IVPB Q24H [facility] Last Admin: 02/09/17 18:53 Dose: 166.7 mls/hr Sodium Chloride (Sodium Chloride 0.9%) 1,000 mls @ 100 mls/hr IV .Q10H [facility] Last Admin: 02/10/17 03:45 Dose: 100 mls/hr - Labs Labs: 02/10/17 07:54 02/10/17 07:54 PT 15.8 SECONDS (9.7-12.2) H 02/09/17 06:45 INR 1.4 02/09/17 06:45 APTT 37 SECONDS (21-34) H 02/09/17 06:45 - Additional Findings Additional findings: - Constitutional Appears: No Acute Distress - Head Exam Head Exam: ATRAUMATIC, NORMAL INSPECTION - Eye Exam Eye Exam: EOMI, Normal appearance - ENT Exam ENT Exam: Mucous Membranes Moist Additional comments: Poor dentition - Respiratory Exam Respiratory Exam: Clear to Ausculation Bilateral, NORMAL BREATHING PATTERN. absent: Rales, Rhonchi, Wheezes, Respiratory Distress - Cardiovascular Exam Cardiovascular Exam: REGULAR RHYTHM, +S1, +S2 - GI/Abdominal Exam GI & Abdominal Exam: Soft, Normal Bowel Sounds. absent: Distended, Firm, Tenderness - Exam Additional comments: Left groin lesion- sanguinous purulent drainage; erythema, swelling extending from suprapubic region to gluteal - Neurological Exam Neurological Exam: Alert, Awake, Oriented x3 - Psychiatric Exam Psychiatric exam: Normal Affect, Normal Mood - Skin Skin Exam: Dry, Warm Assessment and Plan (1) Hidradenitis suppurativa Status: Acute (2) Anemia Status: Acute (3) Depression Status: Acute (4) Substance abuse Status: Acute (5) Electrolyte imbalance Status: Acute (6) Prophylactic measure Status: Acute - Assessment and Plan (Free Text) Plan: (1) Hidradenitis suppurativa Assessment and Plan: * Abdomen/Pelvic CT: findings compatible with cellulitis and phlegmonous changes in left lower pelvic wall, perineum, medial thigh, and posteromedially gluteal soft tissues without evidence of drainable abscess or fluid collections ; reactive b/l inguinal lymphadenopathy, worse on left; fatty liver and mild splenomegaly * Surgery consulted, Dr. Sanchez, help appreciated * WBC 14.3 * PTT 36, PT 15.3, INR 1.4 * CXR: no active disease * EKG: normal sinus rhythm @88bpm * Blood cx: no growth after 24hrs * Wound cx: no growth after 24hrs * Urine cx: f/u results * Continue Zosyn 3.375 IV Q6H and Vanco 1gm IV Q24h * Scheduled for OR today with Dr. Sanchez (2) Anemia Assessment and Plan: * Hgb 8.9 * Type and screen * Continue Feosol 325mg PO daily * Repeat CBC: 02/09- Hgb 8.7; 02/10- Hgb 8.5 * Continue to monitor (3) Depression Assessment and Plan: * Continue Lexapro 10mg PO daily (4) Substance abuse Assessment and Plan: * "infrequent" crack/methamphetamine abuse * Patient reports she goes to substance abuse counseling across the street * Continue Lexapro 10mg PO daily (prescribed by clinic) (5) Electrolyte imbalance Assessment and Plan: * Hypokalemia K3.1 in ED--> repleted * 02/10- 4.3 (6) Prophylactic measure Assessment and Plan: Pepcid 20mg PO BID Heparin 5000u SC Q8h [facility] <Herman Yeager - Last Filed: 02/10/17 16:12> Objective - Vital Signs/Intake and Output Vital Signs (last 24 hours): Temp Pulse Resp BP Pulse Ox 98.4 F 79 20 95/60 L 97 02/10/17 07:59 02/10/17 07:59 02/10/17 07:59 02/10/17 07:59 02/10/17 07:59 Intake and Output: 02/10/17 02/10/17 06:59 18:59 Intake Total 2650 0 Balance 2650 0 - Medications Medications: Current Medications Escitalopram Oxalate (Lexapro) 10 mg PO DAILY [facility] Last Admin: 02/10/17 10:12 Dose: Not Given Famotidine (Pepcid) 20 mg PO BID [facility] Last Admin: 02/10/17 10:12 Dose: Not Given Ferrous Sulfate (Feosol) 325 mg PO DAILY [facility] Last Admin: 02/10/17 10:09 Dose: Not Given Heparin Sodium (Porcine) (Heparin) 5,000 units SC Q8 [facility] Last Admin: 02/09/17 22:47 Dose: 5,000 units Piperacillin Sod/Tazobactam Sod (Zosyn 3.375 Gm Iv Premix) 3.375 gm in 50 mls @ 100 mls/hr IVPB Q6H [facility] Last Admin: 02/10/17 10:14 Dose: 100 mls/hr Vancomycin HCl 1 gm/ Sodium (Chloride) 250 mls @ 166.7 mls/hr IVPB Q24H [facility] Last Admin: 02/09/17 18:53 Dose: 166.7 mls/hr Sodium Chloride (Sodium Chloride 0.9%) 1,000 mls @ 100 mls/hr IV .Q10H [facility] Last Admin: 02/10/17 10:12 Dose: Not Given - Labs Labs: 02/10/17 07:54 02/10/17 07:54 PT 15.8 SECONDS (9.7-12.2) H 02/09/17 06:45 INR 1.4 02/09/17 06:45 APTT 37 SECONDS (21-34) H 02/09/17 06:45 Attending/Attestation - Attestation I have personally seen and examined this patient.: Yes I have fully participated in the care of the patient.: Yes I have reviewed all pertinent clinical information, including history, physical exam and plan: Yes Notes (Text): Medical attending: Patient was seen and examined by me, agrees the above note by medical anthropologist. She did not have any acute concerns. She does not report fevers or chills When we saw the patient, she had not yet been to the OR. At this moment she remains on IV antibiotics Thank you very much, Herman Yeager
[2017-02-10] MEDS ORDERED: Lidocaine 1% Inj (20ml) ONE (14:37)
[2017-02-10] MEDS ORDERED: Bupivacaine-Epi 0.25%-1:200,000 PF Inj ONE (14:37)
[2017-02-10] MEDS ORDERED: Lactated Ringer's 1,000 ML IV ONE ×2 (15:09)
[2017-02-10] MEDS ORDERED: Midazolam 2 MG/2 ML VIAL ONE (15:13)
[2017-02-10] MEDS ORDERED: Propofol 10 mg/ml Inj (20 ML) ONE (15:14)
[2017-02-10] MEDS ORDERED: Lidocaine Hydrochloride 5 ML INJ ONE (15:54)
[2017-02-10] MEDS ORDERED: Rocuronium 10 mg/ml (5 ml) ONE (15:54)
[2017-02-10] MEDS ORDERED: Atropine 0.4 mg/ml Inj (1 mL) ONE (16:07)
[2017-02-10] MEDS ORDERED: Neostigmine Methylsulfate 3mg/3ml Syringe IV ONE (16:07)
--- NOTE | 2017-02-10 16:17 | PCM.SURG1 ---
Surgeon's Initial Post Op Note - Surgeon's Notes Surgeon: Dr. Sanchez Soap Maker: Dr. Hdz PGY2 Type of Anesthesia: General Endo Pre-Operative Diagnosis: Hidradenitis suppurativa Operative Findings: see dictation Post-Operative Diagnosis: same Operation Performed: incision and drainage of multiple groin and thigh abscesses Specimen/Specimens Removed: Cx of L groin abscess Estimated Blood Loss: EBL {In ML}: 50 Blood Products Given: N/A Drains Used: No Drains (iodoform gauze packing) Post-Op Condition: Good Date of Surgery/Procedure: 02/10/17 Time of Surgery/Procedure: 15:10
[2017-02-10] MEDS ORDERED: Morphine 4 MG/ML VIAL IVP PRN (16:18)
[2017-02-10] MEDS ORDERED: HYDROmorphone 0.5 mg/0.5 ml ISec IVP PRN (16:18)
[2017-02-10] MEDS ORDERED: Oxycodone/Acetaminophen 5/325 mg Tab PO PRN (16:19)
[2017-02-11] MEDS: Piperacill/Tazo 3.375gm in Dex 3.375 GM/50 ML BAG IVPB SCH ×4 (02:10→21:40)
[2017-02-11] MEDS: Sodium Chloride 0.9% 1,000 ML IV SCH ×2 (06:39→16:00)
--- NOTE | 2017-02-11 07:35 | OP ---
PROCEDURE DATE: 02/10/2017 PREOPERATIVE DIAGNOSES: 1. Severe hydradenitis of left groin. 2. Severe hydradenitis of the left side of labia majora. 3. Severe hydradenitis of the left medial thigh with multiple abscesses. POSTOPERATIVE DIAGNOSES: 1. Severe hydradenitis of left groin. 2. Severe hydradenitis of the left side of labia majora. 3. Severe hydradenitis of the left medial thigh with multiple abscesses. PROCEDURES: 1. Incision and drainage of left groin multiple abscesses. 2. Excisional debridement of the wound of multiple abscesses of left groin. 3. Incision and drainage of left labia majora multiple abscesses. 4. Excisional debridement of wound of abscess of left labia majora. 5. Incision and drainage of multiple left thigh abscesses. 6. Excisional debridement of the wound of left medial thigh multiple abscesses. SURGEON: Shaka Sanchez MD POWERPLANT OPERATOR: Vangie Hdz DO, PGY-2 resident. TYPE OF ANESTHESIA: General endotracheal tube anesthesia. INTRAOPERATIVE FINDINGS: The patient had multiple abscesses of the left groin and lower abdominal wall. The patient also had multiple abscesses of the left labia majora and the patient also had multiple abscesses of the left medial thigh with severe hydradenitis. ESTIMATED BLOOD LOSS: Around 50 mL. DRAINS: None. PATHOLOGY: The pus was sent for culture and sensitivity. COMPLICATIONS: None. DESCRIPTION OF PROCEDURE: On intraoperative steps, this 41-year-old female was diagnosed with severe hydradenitis with multiple abscesses and the patient had leukocytosis. The patient was consented for incision and drainage and debridement of the left groin, labia majora as well as the left thigh wound and the patient was brought to the OR, placed supine on the operating table. After induction of the anesthesia, the patient was placed in the lithotomy position on a candy cane, and the lower abdominal area was prepped and draped in the usual sterile fashion and the first cruciate stab incision was made on the multiple abscesses of the left lower abdomen as well as left groin, and the wound was drained. Pus was taken for culture and sensitivity, and the wound was debrided with blunt and sharp dissection, and now the same multiple incisions were made on the left labia majora multiple abscesses, and the wound was debrided. The left medial thigh multiple abscesses were drained, and the abscess cavity was debrided and all the abscess cavity was irrigated one by one. Hemostasis was achieved and packed with Iodoform packing as well as with Surgicel to control the bleeding, and a dry sterile dressing was applied. The patient tolerated the procedure well. Count of the instrument and gauze was correct. There was no apparent complication. The patient was extubated in the OR and sent to the Postanesthesia Care Unit in stable condition. Shaka Sanchez MD
[2017-02-11 07:40] LABS: BASO # 0.1 K/uL (0.0-0.2); BASO % 1.1 % (0.0-2.0); EOS # 0.4 K/uL (0.0-0.7); EOS % 4.4 % (0.0-4.0); HEMATOCRIT 26.4 % (34.0-47.0); LYMPH # 1.1 K/uL (1.0-4.3); LYMPH % 11.5 % (20.0-40.0); MEAN CELL VOLUME 69.5 fL (81.0-99.0); MEAN CORPUSCULAR HEMOGLOBIN 21.1 pg (27.0-31.0); MEAN CORPUSCULAR HGB CONC 30.3 g/dL (33.0-37.0); MEAN PLATELET VOLUME 6.3 fL (7.2-11.7); MONO # 0.7 K/uL (0.0-0.8); MONO % 7.7 % (0.0-10.0); NRBC % 0.1 % (0.0-2.0); WHITE BLOOD COUNT 9.3 K/uL (4.8-10.8)
[2017-02-11 08:13] LABS: ALB/GLOB RATIO 0.5 (1.0-2.1); ALKALINE PHOSPHATASE 151 U/L (38-126); ALT/SGPT 28 U/L (9-52); AST/SGOT 23 U/L (14-36); BILIRUBIN,TOTAL 0.2 mg/dL (0.2-1.3); BLOOD UREA NITROGEN 3 mg/dL (7-17); CARBON DIOXIDE 30 mmol/L (22-30); CHLORIDE 105 mmol/L (98-107); GFR AFRICAN-AMERICAN > 60; GLUCOSE,RANDOM 101 mg/dL (65-105); MAGNESIUM 1.9 mg/dL (1.6-2.3); PHOSPHOROUS 3.4 mg/dL (2.5-4.5); POTASSIUM 3.9 mmol/L (3.6-5.2); SODIUM 137 mmol/L (132-148); TOTAL PROTEIN 7.8 g/dL (6.3-8.3)
--- NOTE | 2017-02-11 14:21 | CP.PCM.PN ---
Subjective - Date & Time of Evaluation Date of Evaluation: 02/11/17 Time of Evaluation: 09:00 - Subjective Subjective: Medicine note (PGY-1)----> Dr. Yeager's service Patient was seen and examined at bedside. Patient was resting comfortably in bed. Patient states that she is doing well and has no complaints. Patient denies any pain or discomfort, nausea, vomiting, fever or chills. Objective - Vital Signs/Intake and Output Vital Signs (last 24 hours): Temp Pulse Resp BP Pulse Ox 98.7 F 74 20 95/60 L 99 02/11/17 00:26 02/11/17 00:26 02/11/17 00:26 02/11/17 00:26 02/11/17 00:26 Intake and Output: 02/11/17 02/11/17 06:59 18:59 Intake Total 2210 Balance 2210 - Medications Medications: Current Medications Acetaminophen (Tylenol 325mg Tab) 650 mg PO Q6 PRN PRN Reason: Pain, Mild (1-3) Escitalopram Oxalate (Lexapro) 10 mg PO DAILY [facility] Last Admin: 02/11/17 10:38 Dose: 10 mg Famotidine (Pepcid) 20 mg PO BID [facility] Last Admin: 02/11/17 10:39 Dose: 20 mg Ferrous Sulfate (Feosol) 325 mg PO DAILY [facility] Last Admin: 02/11/17 10:38 Dose: 325 mg Heparin Sodium (Porcine) (Heparin) 5,000 units SC Q8 [facility] Last Admin: 02/11/17 13:51 Dose: 5,000 units Piperacillin Sod/Tazobactam Sod (Zosyn 3.375 Gm Iv Premix) 3.375 gm in 50 mls @ 100 mls/hr IVPB Q6H [facility] Last Admin: 02/11/17 09:49 Dose: 100 mls/hr Vancomycin HCl 1 gm/ Sodium (Chloride) 250 mls @ 166.7 mls/hr IVPB Q24H [facility] Last Admin: 02/10/17 17:32 Dose: 166.7 mls/hr Sodium Chloride (Sodium Chloride 0.9%) 1,000 mls @ 100 mls/hr IV .Q10H [facility] Last Admin: 02/11/17 06:39 Dose: Not Given Morphine Sulfate (Morphine) 4 mg IVP Q4 PRN PRN Reason: Pain, severe (8-10) Ondansetron HCl (Zofran Inj) 4 mg IVP Q4 PRN PRN Reason: Nausea/Vomiting Oxycodone/Acetaminophen (Percocet 5/325 Mg Tab) 1 tab PO Q4H PRN PRN Reason: Pain, moderate (4-7) Stop: 02/13/17 16:20 - Labs Labs: 02/11/17 07:24 02/11/17 07:24 PT 15.8 SECONDS (9.7-12.2) H 02/09/17 06:45 INR 1.4 02/09/17 06:45 APTT 37 SECONDS (21-34) H 02/09/17 06:45 - Constitutional Appears: Well, No Acute Distress - Head Exam Head Exam: ATRAUMATIC - Eye Exam Eye Exam: EOMI, Normal appearance - ENT Exam ENT Exam: Mucous Membranes Moist - Respiratory Exam Respiratory Exam: Clear to Ausculation Bilateral, NORMAL BREATHING PATTERN - Cardiovascular Exam Cardiovascular Exam: REGULAR RHYTHM - GI/Abdominal Exam GI & Abdominal Exam: Soft, Normal Bowel Sounds. absent: Firm, Guarding, Rigid, Tenderness, Diminished Bowel Sounds, Hypoactive Bowel Sounds - Extremities Exam Extremities Exam: Normal Inspection. absent: Calf Tenderness Additional comments: S/P incision and drainage of multiple groin and thigh abscesses POD#1 Dressing is clean, dry and intact - Neurological Exam Neurological Exam: Alert, Awake, Oriented x3 - Psychiatric Exam Psychiatric exam: Normal Affect, Normal Mood - Skin Skin Exam: Normal Color Assessment and Plan (1) Hidradenitis suppurativa Assessment & Plan: Surgery consulted, Dr. Sanchez, help appreciated S/p incision and drainage of multiple groin and thigh abscesses POD#1 Imaging: Abdomen/Pelvic CT: findings compatible with cellulitis and phlegmonous changes in left lower pelvic wall, perineum, medial thigh, and posteromedially gluteal soft tissues without evidence of drainable abscess or fluid collections; reactive b/l inguinal lymphadenopathy, worse on left; fatty liver and mild splenomegaly Labs: WBC normalized Wound culture: Coagulase negative staphylcoccus * Continue Zosyn 3.375 IV Q6H and Vanco 1gm IV Q24h * Percocet 1 tab Q4H prn for (Pain control) * Tylenol 650mg PO Q6H prn ( Pain control) Status: Acute (2) Anemia Assessment & Plan: H/H stable, Asymptomatic Continue to monitor with am labs Medications: * Ferrous sulfate 325mg PO DAILY Status: Acute (3) Depression Assessment & Plan: Continue Lexapro 10mg PO daily Status: Acute (4) Substance abuse Assessment & Plan: "infrequent" crack/methamphetamine abuse * Patient reports she goes to substance abuse counseling across the street * Continue Lexapro 10mg PO daily (prescribed by clinic) Status: Acute (5) Hypokalemia Assessment & Plan: Resolved Continue to monitor with am labs Status: Acute (6) Prophylactic measure Assessment & Plan: GI: Pepcid 20mg PO BID DVT: SCDs and Heparin 5000u SC Q8h Status: Acute
--- NOTE | 2017-02-11 22:17 | CP.PCM.PN ---
<StephanieMac - Last Filed: 02/11/17 22:14> Subjective - Date & Time of Evaluation Date of Evaluation: 02/11/17 Time of Evaluation: 08:20 - Subjective Subjective: Surgery Progress note. Dr. Sanchez Pt seen and examined at bedside. No acute events overnight. Denies any fever or chills. Tolerating diet. No n/V/D. Pain well tolerated, No new complaints. Objective - Vital Signs/Intake and Output Vital Signs (last 24 hours): Temp Pulse Resp BP Pulse Ox 98.2 F 82 20 92/53 L 100 02/11/17 15:00 02/11/17 15:00 02/11/17 15:00 02/11/17 15:00 02/11/17 15:00 Intake and Output: 02/11/17 02/12/17 18:59 06:59 Intake Total 1400 Balance 1400 - Medications Medications: Current Medications Acetaminophen (Tylenol 325mg Tab) 650 mg PO Q6 PRN PRN Reason: Pain, Mild (1-3) Escitalopram Oxalate (Lexapro) 10 mg PO DAILY [facility] Last Admin: 02/11/17 10:38 Dose: 10 mg Famotidine (Pepcid) 20 mg PO BID [facility] Last Admin: 02/11/17 17:35 Dose: 20 mg Ferrous Sulfate (Feosol) 325 mg PO DAILY [facility] Last Admin: 02/11/17 10:38 Dose: 325 mg Heparin Sodium (Porcine) (Heparin) 5,000 units SC Q8 [facility] Last Admin: 02/11/17 21:43 Dose: 5,000 units Piperacillin Sod/Tazobactam Sod (Zosyn 3.375 Gm Iv Premix) 3.375 gm in 50 mls @ 100 mls/hr IVPB Q6H [facility] Last Admin: 02/11/17 21:40 Dose: 100 mls/hr Vancomycin HCl 1 gm/ Sodium (Chloride) 250 mls @ 166.7 mls/hr IVPB Q24H [facility] Last Admin: 02/11/17 17:34 Dose: 166.7 mls/hr Sodium Chloride (Sodium Chloride 0.9%) 1,000 mls @ 100 mls/hr IV .Q10H [facility] Last Admin: 02/11/17 16:00 Dose: 100 mls/hr Morphine Sulfate (Morphine) 4 mg IVP Q4 PRN PRN Reason: Pain, severe (8-10) Ondansetron HCl (Zofran Inj) 4 mg IVP Q4 PRN PRN Reason: Nausea/Vomiting Oxycodone/Acetaminophen (Percocet 5/325 Mg Tab) 1 tab PO Q4H PRN PRN Reason: Pain, moderate (4-7) Stop: 02/13/17 16:20 - Labs Labs: 02/11/17 07:24 02/11/17 07:24 PT 15.8 SECONDS (9.7-12.2) H 02/09/17 06:45 INR 1.4 02/09/17 06:45 APTT 37 SECONDS (21-34) H 02/09/17 06:45 - Constitutional Appears: Well, Non-toxic, No Acute Distress - Head Exam Head Exam: ATRAUMATIC, NORMAL INSPECTION, NORMOCEPHALIC - Eye Exam Eye Exam: EOMI - ENT Exam ENT Exam: Mucous Membranes Moist - Respiratory Exam Respiratory Exam: NORMAL BREATHING PATTERN. absent: Accessory Muscle Use, Respiratory Distress - Cardiovascular Exam Cardiovascular Exam: RRR. absent: JVD - GI/Abdominal Exam GI & Abdominal Exam: Soft. absent: Distended, Firm, Guarding, Rigid, Tenderness - Exam Additional comments: left vaginal and suprapubic abscess I&D with multiple incisions. Dressing changed. Packing removed. Hemostasis noted, mild purulent drainage noted. Tender to palpation, diffuse erythema and induration present. - Neurological Exam Neurological Exam: Alert, Awake, Oriented x3 - Psychiatric Exam Psychiatric exam: Normal Affect, Normal Mood Assessment and Plan - Assessment and Plan (Free Text) Assessment: 41yo F with hidradenitis in left subrapubic, left perivaginal, perilabial, extending to left lower gleuleat cleft. S/p multiple I&Ds on 02/10. POD1 -No leukocytosis, VSS - Continue IV ABX as per ID. Wound culture sensitivities pending - f/u AM labs - Replace dressing with clean dry guaze/abdominal pads as needed Further recs as per Dr. Laura Brown PGY1 surgery pager: [phone] <Shaka Sanchez - Last Filed: 02/12/17 20:06> Objective - Vital Signs/Intake and Output Vital Signs (last 24 hours): Temp Pulse Resp BP Pulse Ox 98.4 F 65 20 109/76 100 02/12/17 16:00 02/12/17 16:00 02/12/17 16:00 02/12/17 16:00 02/12/17 16:00 Intake and Output: 02/12/17 02/13/17 18:59 06:59 Intake Total 1300 Balance 1300 - Medications Medications: Current Medications Acetaminophen (Tylenol 325mg Tab) 650 mg PO Q6 PRN PRN Reason: Pain, Mild (1-3) Escitalopram Oxalate (Lexapro) 10 mg PO DAILY [facility] Last Admin: 02/12/17 10:21 Dose: 10 mg Famotidine (Pepcid) 20 mg PO BID [facility] Last Admin: 02/12/17 17:45 Dose: 20 mg Ferrous Sulfate (Feosol) 325 mg PO DAILY [facility] Last Admin: 02/12/17 10:21 Dose: 325 mg Heparin Sodium (Porcine) (Heparin) 5,000 units SC Q8 [facility] Last Admin: 02/12/17 15:00 Dose: 5,000 units Piperacillin Sod/Tazobactam Sod (Zosyn 3.375 Gm Iv Premix) 3.375 gm in 50 mls @ 100 mls/hr IVPB Q6H [facility] Last Admin: 02/12/17 15:02 Dose: 100 mls/hr Vancomycin HCl 1 gm/ Sodium (Chloride) 250 mls @ 166.7 mls/hr IVPB Q24H [facility] Last Admin: 02/12/17 17:45 Dose: 166.7 mls/hr Sodium Chloride (Sodium Chloride 0.9%) 1,000 mls @ 100 mls/hr IV .Q10H [facility] Last Admin: 02/12/17 16:07 Dose: 100 mls/hr Morphine Sulfate (Morphine) 4 mg IVP Q4 PRN PRN Reason: Pain, severe (8-10) Ondansetron HCl (Zofran Inj) 4 mg IVP Q4 PRN PRN Reason: Nausea/Vomiting Oxycodone/Acetaminophen (Percocet 5/325 Mg Tab) 1 tab PO Q4H PRN PRN Reason: Pain, moderate (4-7) Stop: 02/13/17 16:20 Potassium Chloride (K-Dur 20 Meq Er Tab) 40 meq PO DAILY [facility] Last Admin: 02/12/17 12:28 Dose: 40 meq - Labs Labs: 02/12/17 08:09 02/12/17 08:09 PT 15.8 SECONDS (9.7-12.2) H 02/09/17 06:45 INR 1.4 02/09/17 06:45 APTT 37 SECONDS (21-34) H 02/09/17 06:45 Attending/Attestation - Attestation I have personally seen and examined this patient.: Yes I have fully participated in the care of the patient.: Yes I have reviewed all pertinent clinical information, including history, physical exam and plan: Yes Notes (Text): Pt was seen and examined at bedside Agree with above note and assessment C.w local wound care IV antibiotics
[2017-02-12] MEDS: Sodium Chloride 0.9% 1,000 ML IV SCH ×4 (02:00→21:38)
[2017-02-12] MEDS: Piperacill/Tazo 3.375gm in Dex 3.375 GM/50 ML BAG IVPB SCH ×4 (03:02→21:34)
[2017-02-12 08:17] LABS: BASO # 0.1 K/uL (0.0-0.2); BASO % 1.9 % (0.0-2.0); EOS # 0.3 K/uL (0.0-0.7); EOS % 4.7 % (0.0-4.0); HEMATOCRIT 27.1 % (34.0-47.0); LYMPH # 1.3 K/uL (1.0-4.3); LYMPH % 22.1 % (20.0-40.0); MEAN CELL VOLUME 69.3 fL (81.0-99.0); MEAN CORPUSCULAR HEMOGLOBIN 21.2 pg (27.0-31.0); MEAN CORPUSCULAR HGB CONC 30.6 g/dL (33.0-37.0); MEAN PLATELET VOLUME 6.2 fL (7.2-11.7); MONO # 0.8 K/uL (0.0-0.8); MONO % 12.7 % (0.0-10.0); NRBC % 0.1 % (0.0-2.0); RED CELL DISTRIBUTION WIDTH 18.4 % (11.5-14.5)
[2017-02-12 08:20] VITALS: RESP 20
[2017-02-12 09:02] LABS: ALB/GLOB RATIO 0.5 (1.0-2.1); ALKALINE PHOSPHATASE 141 U/L (38-126); ALT/SGPT 22 U/L (9-52); AST/SGOT 15 U/L (14-36); BILIRUBIN,TOTAL 0.2 mg/dL (0.2-1.3); BLOOD UREA NITROGEN 3 mg/dL (7-17); CALCIUM 6.9 mg/dl (8.6-10.4); CARBON DIOXIDE 27 mmol/L (22-30); CHLORIDE 106 mmol/L (98-107); GFR AFRICAN-AMERICAN > 60; GLUCOSE,RANDOM 88 mg/dL (65-105); PHOSPHOROUS 3.6 mg/dL (2.5-4.5); POTASSIUM 3.6 mmol/L (3.6-5.2); SODIUM 140 mmol/L (132-148)
--- NOTE | 2017-02-12 10:19 | CP.PCM.PN ---
<DarrenCarmenlor E - Last Filed: 02/12/17 10:25> Subjective - Date & Time of Evaluation Date of Evaluation: 02/12/17 Time of Evaluation: 10:00 - Subjective Subjective: Medicine note (PGY-1)----> Dr. Yeager's service Patient was seen and examined at bedside. Patient was resting comfortably in bed. Patient states that she is doing well and has no complaints. Patient denies any pain or discomfort, nausea, vomiting, fever or chills. Patient is ambulating and tolerating diet. Objective - Vital Signs/Intake and Output Vital Signs (last 24 hours): Temp Pulse Resp BP Pulse Ox 97.9 F 79 20 97/60 L 99 02/12/17 08:18 02/12/17 08:18 02/12/17 08:18 02/12/17 08:18 02/12/17 08:18 Intake and Output: 02/12/17 02/12/17 06:59 18:59 Intake Total 2400 Output Total 600 Balance 1800 - Medications Medications: Current Medications Acetaminophen (Tylenol 325mg Tab) 650 mg PO Q6 PRN PRN Reason: Pain, Mild (1-3) Escitalopram Oxalate (Lexapro) 10 mg PO DAILY [facility] Last Admin: 02/11/17 10:38 Dose: 10 mg Famotidine (Pepcid) 20 mg PO BID [facility] Last Admin: 02/11/17 17:35 Dose: 20 mg Ferrous Sulfate (Feosol) 325 mg PO DAILY [facility] Last Admin: 02/11/17 10:38 Dose: 325 mg Heparin Sodium (Porcine) (Heparin) 5,000 units SC Q8 [facility] Last Admin: 02/12/17 06:10 Dose: 5,000 units Piperacillin Sod/Tazobactam Sod (Zosyn 3.375 Gm Iv Premix) 3.375 gm in 50 mls @ 100 mls/hr IVPB Q6H [facility] Last Admin: 02/12/17 03:02 Dose: 100 mls/hr Vancomycin HCl 1 gm/ Sodium (Chloride) 250 mls @ 166.7 mls/hr IVPB Q24H [facility] Last Admin: 02/11/17 17:34 Dose: 166.7 mls/hr Sodium Chloride (Sodium Chloride 0.9%) 1,000 mls @ 100 mls/hr IV .Q10H [facility] Last Admin: 02/12/17 05:05 Dose: 100 mls/hr Morphine Sulfate (Morphine) 4 mg IVP Q4 PRN PRN Reason: Pain, severe (8-10) Ondansetron HCl (Zofran Inj) 4 mg IVP Q4 PRN PRN Reason: Nausea/Vomiting Oxycodone/Acetaminophen (Percocet 5/325 Mg Tab) 1 tab PO Q4H PRN PRN Reason: Pain, moderate (4-7) Stop: 02/13/17 16:20 - Labs Labs: 02/12/17 08:09 02/12/17 08:09 PT 15.8 SECONDS (9.7-12.2) H 02/09/17 06:45 INR 1.4 02/09/17 06:45 APTT 37 SECONDS (21-34) H 02/09/17 06:45 - Constitutional Appears: No Acute Distress - Head Exam Head Exam: ATRAUMATIC - Eye Exam Eye Exam: EOMI, Normal appearance - ENT Exam ENT Exam: Mucous Membranes Moist - Respiratory Exam Respiratory Exam: Clear to Ausculation Bilateral, NORMAL BREATHING PATTERN - Cardiovascular Exam Cardiovascular Exam: REGULAR RHYTHM, +S1, +S2 - GI/Abdominal Exam GI & Abdominal Exam: Soft, Normal Bowel Sounds - Extremities Exam Extremities Exam: Normal Inspection. absent: Calf Tenderness Additional comments: S/P incision and drainage of multiple groin and thigh abscesses POD#1 Dressing is clean, dry and intact - Neurological Exam Neurological Exam: Alert, Awake, Oriented x3 - Psychiatric Exam Psychiatric exam: Normal Affect - Skin Skin Exam: Normal Color Assessment and Plan (1) Hidradenitis suppurativa Assessment & Plan: Surgery consulted, Dr. Sanchez, help appreciated S/p incision and drainage of multiple groin and thigh abscesses POD#2 Imaging: Abdomen/Pelvic CT: findings compatible with cellulitis and phlegmonous changes in left lower pelvic wall, perineum, medial thigh, and posteromedially gluteal soft tissues without evidence of drainable abscess or fluid collections; reactive b/l inguinal lymphadenopathy, worse on left; fatty liver and mild splenomegaly Labs: WBC normalized, Afebrile Wound culture: Coagulase negative staphylcoccus * Continue Zosyn 3.375 IV Q6H and Vanco 1gm IV Q24h * Percocet 1 tab Q4H prn for (Pain control) * Tylenol 650mg PO Q6H prn ( Pain control) Status: Acute (2) Anemia Assessment & Plan: H/H stable, Asymptomatic Continue to monitor with am labs Medications: * Ferrous sulfate 325mg PO DAILY Status: Acute (3) Depression Assessment & Plan: Continue Lexapro 10mg PO daily Status: Acute (4) Substance abuse Assessment & Plan: "infrequent" crack/methamphetamine abuse * Patient reports she goes to substance abuse counseling across the street * Continue Lexapro 10mg PO daily (prescribed by clinic) Status: Acute (5) Hypokalemia Assessment & Plan: Resolved Continue to monitor with am labs Status: Acute (6) Prophylactic measure Assessment & Plan: GI: Pepcid 20mg PO BID DVT: SCDs and Heparin 5000u SC Q8h Status: Acute <Herman Yeager H - Last Filed: 02/12/17 10:45> Objective - Vital Signs/Intake and Output Vital Signs (last 24 hours): Temp Pulse Resp BP Pulse Ox 97.9 F 79 20 97/60 L 99 02/12/17 08:18 02/12/17 08:18 02/12/17 08:18 02/12/17 08:18 02/12/17 08:18 Intake and Output: 02/12/17 02/12/17 06:59 18:59 Intake Total 2400 Output Total 600 Balance 1800 - Medications Medications: Current Medications Acetaminophen (Tylenol 325mg Tab) 650 mg PO Q6 PRN PRN Reason: Pain, Mild (1-3) Escitalopram Oxalate (Lexapro) 10 mg PO DAILY [facility] Last Admin: 02/12/17 10:21 Dose: 10 mg Famotidine (Pepcid) 20 mg PO BID [facility] Last Admin: 02/12/17 10:21 Dose: 20 mg Ferrous Sulfate (Feosol) 325 mg PO DAILY [facility] Last Admin: 02/12/17 10:21 Dose: 325 mg Heparin Sodium (Porcine) (Heparin) 5,000 units SC Q8 [facility] Last Admin: 02/12/17 06:10 Dose: 5,000 units Piperacillin Sod/Tazobactam Sod (Zosyn 3.375 Gm Iv Premix) 3.375 gm in 50 mls @ 100 mls/hr IVPB Q6H [facility] Last Admin: 02/12/17 10:25 Dose: 100 mls/hr Vancomycin HCl 1 gm/ Sodium (Chloride) 250 mls @ 166.7 mls/hr IVPB Q24H [facility] Last Admin: 02/11/17 17:34 Dose: 166.7 mls/hr Sodium Chloride (Sodium Chloride 0.9%) 1,000 mls @ 100 mls/hr IV .Q10H [facility] Last Admin: 02/12/17 05:05 Dose: 100 mls/hr Morphine Sulfate (Morphine) 4 mg IVP Q4 PRN PRN Reason: Pain, severe (8-10) Ondansetron HCl (Zofran Inj) 4 mg IVP Q4 PRN PRN Reason: Nausea/Vomiting Oxycodone/Acetaminophen (Percocet 5/325 Mg Tab) 1 tab PO Q4H PRN PRN Reason: Pain, moderate (4-7) Stop: 02/13/17 16:20 Potassium Chloride (K-Dur 20 Meq Er Tab) 40 meq PO DAILY [facility] - Labs Labs: 02/12/17 08:09 02/12/17 08:09 PT 15.8 SECONDS (9.7-12.2) H 02/09/17 06:45 INR 1.4 02/09/17 06:45 APTT 37 SECONDS (21-34) H 02/09/17 06:45 Attending/Attestation - Attestation I have personally seen and examined this patient.: Yes I have fully participated in the care of the patient.: Yes I have reviewed all pertinent clinical information, including history, physical exam and plan: Yes Notes (Text): 02/12/17 10:39 Medical attending: Patient was seen and examined by me. Agree with the above note by the resident The patient was ambulating in room No fever or chills. There is minimal drainage from the site She is POD 2 at this time thank you Herman Yeager
--- NOTE | 2017-02-12 11:47 | CP.PCM.PN ---
<StephanieMac - Last Filed: 02/12/17 11:44> Subjective - Date & Time of Evaluation Date of Evaluation: 02/12/17 Time of Evaluation: 09:25 - Subjective Subjective: Surgery Progress note. Dr. Sanchez Pt seen and examined at bedside. no acute events overnight. groin I&D sites noted to be draining purulent material. Denies F/C. Tolerating diet. no new complaints Objective - Vital Signs/Intake and Output Vital Signs (last 24 hours): Temp Pulse Resp BP Pulse Ox 97.9 F 79 20 97/60 L 99 02/12/17 08:18 02/12/17 08:18 02/12/17 08:18 02/12/17 08:18 02/12/17 08:18 Intake and Output: 02/12/17 02/12/17 06:59 18:59 Intake Total 2400 Output Total 600 Balance 1800 - Medications Medications: Current Medications Acetaminophen (Tylenol 325mg Tab) 650 mg PO Q6 PRN PRN Reason: Pain, Mild (1-3) Escitalopram Oxalate (Lexapro) 10 mg PO DAILY [facility] Last Admin: 02/12/17 10:21 Dose: 10 mg Famotidine (Pepcid) 20 mg PO BID [facility] Last Admin: 02/12/17 10:21 Dose: 20 mg Ferrous Sulfate (Feosol) 325 mg PO DAILY [facility] Last Admin: 02/12/17 10:21 Dose: 325 mg Heparin Sodium (Porcine) (Heparin) 5,000 units SC Q8 [facility] Last Admin: 02/12/17 06:10 Dose: 5,000 units Piperacillin Sod/Tazobactam Sod (Zosyn 3.375 Gm Iv Premix) 3.375 gm in 50 mls @ 100 mls/hr IVPB Q6H [facility] Last Admin: 02/12/17 10:25 Dose: 100 mls/hr Vancomycin HCl 1 gm/ Sodium (Chloride) 250 mls @ 166.7 mls/hr IVPB Q24H [facility] Last Admin: 02/11/17 17:34 Dose: 166.7 mls/hr Sodium Chloride (Sodium Chloride 0.9%) 1,000 mls @ 100 mls/hr IV .Q10H [facility] Last Admin: 02/12/17 05:05 Dose: 100 mls/hr Morphine Sulfate (Morphine) 4 mg IVP Q4 PRN PRN Reason: Pain, severe (8-10) Ondansetron HCl (Zofran Inj) 4 mg IVP Q4 PRN PRN Reason: Nausea/Vomiting Oxycodone/Acetaminophen (Percocet 5/325 Mg Tab) 1 tab PO Q4H PRN PRN Reason: Pain, moderate (4-7) Stop: 02/13/17 16:20 Potassium Chloride (K-Dur 20 Meq Er Tab) 40 meq PO DAILY [facility] - Labs Labs: 02/12/17 08:09 02/12/17 08:09 PT 15.8 SECONDS (9.7-12.2) H 02/09/17 06:45 INR 1.4 02/09/17 06:45 APTT 37 SECONDS (21-34) H 02/09/17 06:45 - Constitutional Appears: Well, Non-toxic, No Acute Distress - Head Exam Head Exam: ATRAUMATIC, NORMAL INSPECTION, NORMOCEPHALIC - Eye Exam Eye Exam: EOMI - ENT Exam ENT Exam: Mucous Membranes Moist - Respiratory Exam Respiratory Exam: NORMAL BREATHING PATTERN. absent: Accessory Muscle Use, Respiratory Distress - Cardiovascular Exam Cardiovascular Exam: RRR, +S1, +S2. absent: JVD - GI/Abdominal Exam GI & Abdominal Exam: Soft. absent: Distended, Firm, Guarding, Rigid, Tenderness - Exam Additional comments: left suprapubic, left groin, left lower gluteal cleft I&D with dressing clean, dry and intact. Minimal purulent drainage noted. Tender to palpation - Neurological Exam Neurological Exam: Alert, Awake Assessment and Plan - Assessment and Plan (Free Text) Assessment: 41yo F with hidradenitis in left subrapubic, left perilabial, extending to left lower gluteal cleft. S/p multiple I&Ds on 02/10. POD2 -No leukocytosis - Continue IV ABX as per ID. Wound culture Coag neg staph - Replace dressing with clean dry guaze/abdominal pads as needed Further recs as per Dr. Laura Brown PGY1 surgery pager: [phone] <Shaka Sanchez - Last Filed: 02/12/17 20:07> Objective - Vital Signs/Intake and Output Vital Signs (last 24 hours): Temp Pulse Resp BP Pulse Ox 98.4 F 65 20 109/76 100 02/12/17 16:00 02/12/17 16:00 02/12/17 16:00 02/12/17 16:00 02/12/17 16:00 Intake and Output: 02/12/17 02/13/17 18:59 06:59 Intake Total 1300 Balance 1300 - Medications Medications: Current Medications Acetaminophen (Tylenol 325mg Tab) 650 mg PO Q6 PRN PRN Reason: Pain, Mild (1-3) Escitalopram Oxalate (Lexapro) 10 mg PO DAILY [facility] Last Admin: 02/12/17 10:21 Dose: 10 mg Famotidine (Pepcid) 20 mg PO BID [facility] Last Admin: 02/12/17 17:45 Dose: 20 mg Ferrous Sulfate (Feosol) 325 mg PO DAILY [facility] Last Admin: 02/12/17 10:21 Dose: 325 mg Heparin Sodium (Porcine) (Heparin) 5,000 units SC Q8 [facility] Last Admin: 02/12/17 15:00 Dose: 5,000 units Piperacillin Sod/Tazobactam Sod (Zosyn 3.375 Gm Iv Premix) 3.375 gm in 50 mls @ 100 mls/hr IVPB Q6H [facility] Last Admin: 02/12/17 15:02 Dose: 100 mls/hr Vancomycin HCl 1 gm/ Sodium (Chloride) 250 mls @ 166.7 mls/hr IVPB Q24H [facility] Last Admin: 02/12/17 17:45 Dose: 166.7 mls/hr Sodium Chloride (Sodium Chloride 0.9%) 1,000 mls @ 100 mls/hr IV .Q10H [facility] Last Admin: 02/12/17 16:07 Dose: 100 mls/hr Morphine Sulfate (Morphine) 4 mg IVP Q4 PRN PRN Reason: Pain, severe (8-10) Ondansetron HCl (Zofran Inj) 4 mg IVP Q4 PRN PRN Reason: Nausea/Vomiting Oxycodone/Acetaminophen (Percocet 5/325 Mg Tab) 1 tab PO Q4H PRN PRN Reason: Pain, moderate (4-7) Stop: 02/13/17 16:20 Potassium Chloride (K-Dur 20 Meq Er Tab) 40 meq PO DAILY [facility] Last Admin: 02/12/17 12:28 Dose: 40 meq - Labs Labs: 02/12/17 08:09 02/12/17 08:09 PT 15.8 SECONDS (9.7-12.2) H 02/09/17 06:45 INR 1.4 02/09/17 06:45 APTT 37 SECONDS (21-34) H 02/09/17 06:45 Attending/Attestation - Attestation I have personally seen and examined this patient.: Yes I have fully participated in the care of the patient.: Yes I have reviewed all pertinent clinical information, including history, physical exam and plan: Yes Notes (Text): Pt was seen and examined at bedside Agree with above note and assessment C.w local wound care IV antibiotics
[2017-02-12] MEDS: Potassium Chloride 20 mEq ER Tab PO SCH (12:28)
[2017-02-12 18:44] VITALS: O2SAT 100
[2017-02-13] MEDS: Piperacill/Tazo 3.375gm in Dex 3.375 GM/50 ML BAG IVPB SCH ×3 (03:07→14:34)
[2017-02-13] MEDS: Sodium Chloride 0.9% 1,000 ML IV SCH (06:15)
--- NOTE | 2017-02-13 07:01 | CP.PCM.PN ---
Subjective - Date & Time of Evaluation Date of Evaluation: 02/13/17 Time of Evaluation: 07:00 - Subjective Subjective: Medicine Progress Note for Dr. Cutler Patient was seen and examined at bedside in no acute distress. Patient was standing and walking without difficulty upon entering the room. Patient is s/p I &D of hidradenitis; denies having pain at the surgical site. Patient denies having chest pain, abdominal pain, shortness of breath, nausea, vomiting, fevers , headaches. Objective - Vital Signs/Intake and Output Vital Signs (last 24 hours): Temp Pulse Resp BP Pulse Ox 98.1 F 73 20 101/65 100 02/13/17 00:00 02/13/17 00:00 02/13/17 00:00 02/13/17 00:00 02/13/17 00:00 Intake and Output: 02/13/17 02/13/17 06:59 18:59 Intake Total 1100 Balance 1100 - Medications Medications: Current Medications Acetaminophen (Tylenol 325mg Tab) 650 mg PO Q6 PRN PRN Reason: Pain, Mild (1-3) Escitalopram Oxalate (Lexapro) 10 mg PO DAILY [facility] Last Admin: 02/12/17 10:21 Dose: 10 mg Famotidine (Pepcid) 20 mg PO BID [facility] Last Admin: 02/12/17 17:45 Dose: 20 mg Ferrous Sulfate (Feosol) 325 mg PO DAILY [facility] Last Admin: 02/12/17 10:21 Dose: 325 mg Heparin Sodium (Porcine) (Heparin) 5,000 units SC Q8 [facility] Last Admin: 02/13/17 06:15 Dose: 5,000 units Piperacillin Sod/Tazobactam Sod (Zosyn 3.375 Gm Iv Premix) 3.375 gm in 50 mls @ 100 mls/hr IVPB Q6H [facility] Last Admin: 02/13/17 03:07 Dose: 100 mls/hr Vancomycin HCl 1 gm/ Sodium (Chloride) 250 mls @ 166.7 mls/hr IVPB Q24H [facility] Last Admin: 02/12/17 17:45 Dose: 166.7 mls/hr Sodium Chloride (Sodium Chloride 0.9%) 1,000 mls @ 100 mls/hr IV .Q10H [facility] Last Admin: 02/13/17 06:15 Dose: 100 mls/hr Morphine Sulfate (Morphine) 4 mg IVP Q4 PRN PRN Reason: Pain, severe (8-10) Ondansetron HCl (Zofran Inj) 4 mg IVP Q4 PRN PRN Reason: Nausea/Vomiting Oxycodone/Acetaminophen (Percocet 5/325 Mg Tab) 1 tab PO Q4H PRN PRN Reason: Pain, moderate (4-7) Stop: 02/13/17 16:20 Potassium Chloride (K-Dur 20 Meq Er Tab) 40 meq PO DAILY [facility] Last Admin: 02/12/17 12:28 Dose: 40 meq - Labs Labs: 02/12/17 08:09 02/12/17 08:09 PT 15.8 SECONDS (9.7-12.2) H 02/09/17 06:45 INR 1.4 02/09/17 06:45 APTT 37 SECONDS (21-34) H 02/09/17 06:45 - Additional Findings Additional findings: - Constitutional Appears: No Acute Distress - Head Exam Head Exam: ATRAUMATIC, NORMAL INSPECTION - Eye Exam Eye Exam: EOMI, Normal appearance - ENT Exam ENT Exam: Mucous Membranes Moist Additional comments: Poor dentition - Respiratory Exam Respiratory Exam: Clear to Ausculation Bilateral, NORMAL BREATHING PATTERN. absent: Rales, Rhonchi, Wheezes, Respiratory Distress - Cardiovascular Exam Cardiovascular Exam: REGULAR RHYTHM, +S1, +S2 - GI/Abdominal Exam GI & Abdominal Exam: Soft, Normal Bowel Sounds. absent: Distended, Firm, Tenderness - Exam Additional comments: Left groin hidradenitis; s/p I&D pod#3; minimal drainage noted. - Neurological Exam Neurological Exam: Alert, Awake, Oriented x3 - Psychiatric Exam Psychiatric exam: Normal Affect, Normal Mood - Skin Skin Exam: Dry, Warm Assessment and Plan (1) Hidradenitis suppurativa Status: Acute (2) Anemia Status: Acute (3) Depression Status: Acute (4) Substance abuse Status: Acute (5) Electrolyte imbalance Status: Acute (6) Prophylactic measure Status: Acute - Assessment and Plan (Free Text) Plan: Assessment and Plan (1) Hidradenitis suppurativa Assessment & Plan: Surgery consulted, Dr. Sanchez, help appreciated S/p incision and drainage of multiple groin and thigh abscesses POD#3 Imaging: Abdomen/Pelvic CT: findings compatible with cellulitis and phlegmonous changes in left lower pelvic wall, perineum, medial thigh, and posteromedially gluteal soft tissues without evidence of drainable abscess or fluid collections; reactive b/l inguinal lymphadenopathy, worse on left; fatty liver and mild splenomegaly Labs: WBC normalized, Afebrile Wound culture: Coagulase negative staphylcoccus * Continue Zosyn 3.375 IV Q6H and Vanco 1gm IV Q24h * Percocet 1 tab Q4H prn for (Pain control) * Tylenol 650mg PO Q6H prn ( Pain control) Status: Acute (2) Anemia Assessment & Plan: H/H stable, Asymptomatic Continue to monitor with am labs Medications: * Ferrous sulfate 325mg PO DAILY Status: Acute (3) Depression Assessment & Plan: Continue Lexapro 10mg PO daily Status: Acute (4) Substance abuse Assessment & Plan: "infrequent" crack/methamphetamine abuse * Patient reports she goes to substance abuse counseling across the street * Continue Lexapro 10mg PO daily (prescribed by clinic) Status: Acute (5) Hypokalemia Assessment & Plan: Resolved Continue to monitor with am labs Status: Acute (6) Prophylactic measure Assessment & Plan: GI: Pepcid 20mg PO BID DVT: SCDs and Heparin 5000u SC Q8h Status: Acute
[2017-02-13 07:57] LABS: BASO # 0.1 K/uL (0.0-0.2); BASO % 1.1 % (0.0-2.0); EOS # 0.3 K/uL (0.0-0.7); EOS % 5.5 % (0.0-4.0); LYMPH # 1.4 K/uL (1.0-4.3); LYMPH % 24.4 % (20.0-40.0); MEAN CELL VOLUME 69.3 fL (81.0-99.0); MEAN CORPUSCULAR HEMOGLOBIN 21.2 pg (27.0-31.0); MEAN CORPUSCULAR HGB CONC 30.7 g/dL (33.0-37.0); MEAN PLATELET VOLUME 6.3 fL (7.2-11.7); MONO # 0.5 K/uL (0.0-0.8); MONO % 8.7 % (0.0-10.0); WHITE BLOOD COUNT 5.6 K/uL (4.8-10.8)
[2017-02-13 08:06] VITALS: BP 98/60; PULSE 60; TEMP 97.6
[2017-02-13 08:54] LABS: ALB/GLOB RATIO 0.6 (1.0-2.1); ALKALINE PHOSPHATASE 150 U/L (38-126); ALT/SGPT 16 U/L (9-52); AST/SGOT 16 U/L (14-36); BILIRUBIN,TOTAL 0.3 mg/dL (0.2-1.3); BLOOD UREA NITROGEN 3 mg/dL (7-17); CALCIUM 7.4 mg/dl (8.6-10.4); CARBON DIOXIDE 28 mmol/L (22-30); CHLORIDE 105 mmol/L (98-107); GFR AFRICAN-AMERICAN > 60; GLUCOSE,RANDOM 109 mg/dL (65-105); MAGNESIUM 1.9 mg/dL (1.6-2.3); PHOSPHOROUS 3.4 mg/dL (2.5-4.5); POTASSIUM 4.1 mmol/L (3.6-5.2); SODIUM 138 mmol/L (132-148); TOTAL PROTEIN 7.7 g/dL (6.3-8.3)
[2017-02-13] MEDS: Potassium Chloride 20 mEq ER Tab PO SCH ×2 (08:57→10:00)
--- NOTE | 2017-02-13 10:02 | CP.PCM.PN ---
Addendum entered and electronically signed by Lico Ramírez DO 02/13/17 10: 25: d/w Dr Sanchez - pt is clear for discharge from surgery - cont dressing changes PRN recommend 2 weeks of abx PO f/u in clinic with Dr Sanchez next week -Desiree, PGY3 Original Note: <Vangie Hdz - Last Filed: 02/13/17 09:58> Subjective - Date & Time of Evaluation Date of Evaluation: 02/13/17 Time of Evaluation: 06:45 - Subjective Subjective: General Surgery Dr. Sanchez Pt S&E @bedside. NAEO. Pt reports improved pain. denies F/C, N/V, D/C. tolerating diet. Objective - Vital Signs/Intake and Output Vital Signs (last 24 hours): Temp Pulse Resp BP Pulse Ox 97.6 F 60 20 98/60 L 100 02/13/17 08:04 02/13/17 08:04 02/13/17 08:04 02/13/17 08:04 02/13/17 08:04 Intake and Output: 02/13/17 02/13/17 06:59 18:59 Intake Total 2150 Balance 2150 - Medications Medications: Current Medications Acetaminophen (Tylenol 325mg Tab) 650 mg PO Q6 PRN PRN Reason: Pain, Mild (1-3) Escitalopram Oxalate (Lexapro) 10 mg PO DAILY [facility] Last Admin: 02/13/17 08:57 Dose: 10 mg Famotidine (Pepcid) 20 mg PO BID [facility] Last Admin: 02/13/17 08:58 Dose: 20 mg Ferrous Sulfate (Feosol) 325 mg PO DAILY [facility] Last Admin: 02/13/17 08:56 Dose: 325 mg Heparin Sodium (Porcine) (Heparin) 5,000 units SC Q8 [facility] Last Admin: 02/13/17 06:15 Dose: 5,000 units Piperacillin Sod/Tazobactam Sod (Zosyn 3.375 Gm Iv Premix) 3.375 gm in 50 mls @ 100 mls/hr IVPB Q6H [facility] Last Admin: 02/13/17 08:58 Dose: 100 mls/hr Vancomycin HCl 1 gm/ Sodium (Chloride) 250 mls @ 166.7 mls/hr IVPB Q24H [facility] Last Admin: 02/12/17 17:45 Dose: 166.7 mls/hr Sodium Chloride (Sodium Chloride 0.9%) 1,000 mls @ 100 mls/hr IV .Q10H [facility] Last Admin: 02/13/17 06:15 Dose: 100 mls/hr Morphine Sulfate (Morphine) 4 mg IVP Q4 PRN PRN Reason: Pain, severe (8-10) Ondansetron HCl (Zofran Inj) 4 mg IVP Q4 PRN PRN Reason: Nausea/Vomiting Oxycodone/Acetaminophen (Percocet 5/325 Mg Tab) 1 tab PO Q4H PRN PRN Reason: Pain, moderate (4-7) Stop: 02/13/17 16:20 Last Admin: 02/13/17 06:59 Dose: 1 tab Potassium Chloride (K-Dur 20 Meq Er Tab) 40 meq PO DAILY [facility] Last Admin: 02/13/17 08:57 Dose: 40 meq - Labs Labs: 02/13/17 07:46 02/13/17 07:46 PT 15.8 SECONDS (9.7-12.2) H 02/09/17 06:45 INR 1.4 02/09/17 06:45 APTT 37 SECONDS (21-34) H 02/09/17 06:45 - Constitutional Appears: Non-toxic, No Acute Distress - Head Exam Head Exam: NORMAL INSPECTION - Eye Exam Eye Exam: Normal appearance - ENT Exam ENT Exam: Mucous Membranes Moist - Respiratory Exam Respiratory Exam: NORMAL BREATHING PATTERN. absent: Accessory Muscle Use, Respiratory Distress - Cardiovascular Exam Cardiovascular Exam: absent: Bradycardia, Tachycardia - GI/Abdominal Exam GI & Abdominal Exam: Soft. absent: Distended, Tenderness - Exam Additional comments: continued induration, and purulent drainage from (L) labia majora. incisions c/d/i - Extremities Exam Extremities Exam: Normal Inspection - Neurological Exam Neurological Exam: Alert, Awake, Oriented x3 - Psychiatric Exam Psychiatric exam: Normal Affect, Normal Mood - Skin Skin Exam: Dry, Intact, Normal Color, Warm Assessment and Plan - Assessment and Plan (Free Text) Assessment: 41 y/o F POD#3 s/p I&D of pubic and (L) thigh abscesses - dressing changes PRN - cont IV Abx - cont pain management - monitor vitals - consider repeat wound Cx for sensitivities - encourage OOB to chair/Amb Pt discussed w/ Dr. Laura Hdz DO PGY2 <Shaka Sanchez - Last Filed: 02/14/17 16:32> Objective - Vital Signs/Intake and Output Vital Signs (last 24 hours): Temp Pulse Resp BP Pulse Ox 97.6 F 60 20 98/60 L 100 02/13/17 08:04 02/13/17 08:04 02/13/17 08:04 02/13/17 08:04 02/13/17 08:04 - Labs Labs: 02/13/17 07:46 02/13/17 07:46 PT 15.8 SECONDS (9.7-12.2) H 02/09/17 06:45 INR 1.4 02/09/17 06:45 APTT 37 SECONDS (21-34) H 02/09/17 06:45 Attending/Attestation - Attestation I have personally seen and examined this patient.: Yes I have fully participated in the care of the patient.: Yes I have reviewed all pertinent clinical information, including history, physical exam and plan: Yes Notes (Text): Pt was seen and examined at bedside Agree with above note and assessment f/u in clinic next week
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
== END 2017-02-13 17:46 | disposition home or self-care (01) | DRG 265 ==
LOC: C.ER 11:02 → C.9E 14:09 → C.9I 02-09 06:16 → C.3T 02-09 14:15
PROVIDERS: ADMIT Hospitalist; ATTEND Hospitalist
PROC: 0HBJXZZ Excision of Left Upper Leg Skin, External Approach (ICD-10-PCS; 2017-02-10)
PROC: 0HB9XZZ Excision of Perineum Skin, External Approach (ICD-10-PCS; 2017-02-10)
PROC: 0HBAXZZ Excision of Inguinal Skin, External Approach (ICD-10-PCS; principal; 2017-02-10 18:15)
DX: L73.2 Hidradenitis suppurativa (principal); N39.0 Urinary tract infection, site not specified; D64.9 Anemia, unspecified; E87.6 Hypokalemia; F14.10 Cocaine abuse, uncomplicated; F32.9 Major depressive disorder, single episode, unspecified; N73.2 Unspecified parametritis and pelvic cellulitis

== ENCOUNTER 2018-06-07 14:31 | Inpatient (IN) | payer MEDICAID, OTHER ==
[2018-06-07 14:31] VITALS: BMI 21.4
--- NOTE | 2018-06-07 16:10 | C.PDOC ---
History Of Present Illness 42 y/o female, appears older than age, c/o pain to ulcerated area on left buttock. pt sts ulcer has been there for a ?year, not getting any wound care treatment. pt also with lower abdominal pain on left side, sts she had surgery there in Dec for unclear reason. old charts reviewed, pt with hx hiddradenitis suppuritivia. no n/v/d. denies ivda. denies fever. pt ran out of percocet. <Subha Banegas - Last Filed: 06/07/18 19:25> History Per: Patient History/Exam Limitations: no limitations Onset/Duration Of Symptoms: Other (one year) Current Symptoms Are (Timing): Still Present Recent travel outside of the [place]: No Additional History Per: Patient <Subha Banegas - Last Filed: 06/07/18 19:25> <Dez Kent - Last Filed: 06/07/18 21:14> Time Seen by Provider: 06/07/18 15:12 Chief Complaint (Nursing): Back Pain Past Medical History Reviewed: Historical Data, Nursing Documentation, Vital Signs Vital Signs: Last Vital Signs Temp 97.9 F 06/07/18 14:41 Pulse 79 06/07/18 14:41 Resp 16 06/07/18 14:41 BP 124/66 06/07/18 14:41 Pulse Ox 100 06/07/18 14:41 - Medical History PMH: Anemia, Depression Denies: Chronic Kidney Disease Surgical History: No Surg Hx - [facility] Procedures D & C POST DELIVERY (02/10/13) EXCISION OF GENITALIA SKIN, EXTERNAL APPROACH (02/08/17) EXCISION OF LEFT UPPER LEG SKIN, EXTERNAL APPROACH (02/08/17) EXCISION OF PERINEUM SKIN, EXTERNAL APPROACH (02/08/17) PACKED CELL TRANSFUSION (02/10/13) Family History: States: Unknown Family Hx - Social History Hx Tobacco Use: No Hx Alcohol Use: Yes Hx Substance Use: No - Immunization History Hx Tetanus Toxoid Vaccination: No Hx Influenza Vaccination: No Hx Pneumococcal Vaccination: No <Subha Banegas - Last Filed: 06/07/18 19:25> Vital Signs: Last Vital Signs Temp 98.3 F 06/07/18 20:08 Pulse 78 06/07/18 20:08 Resp 16 06/07/18 14:41 BP 117/70 06/07/18 20:08 Pulse Ox 97 06/07/18 20:08 - [facility] Procedures D & C POST DELIVERY (02/10/13) EXCISION OF GENITALIA SKIN, EXTERNAL APPROACH (02/08/17) EXCISION OF LEFT UPPER LEG SKIN, EXTERNAL APPROACH (02/08/17) EXCISION OF PERINEUM SKIN, EXTERNAL APPROACH (02/08/17) PACKED CELL TRANSFUSION (02/10/13) <Dez Kent - Last Filed: 06/07/18 21:14> Review Of Systems Constitutional: Negative for: Fever Gastrointestinal: Positive for: Abdominal Pain (left ). Negative for: Nausea, Vomiting, Diarrhea Skin: Positive for: Other (ulcerated area on left buttock ) <Subha Banegas - Last Filed: 06/07/18 19:25> Physical Exam - Physical Exam Appears: No Acute Distress, Chronically Ill Skin: Normal Color, Warm, Dry Head: Atraumatic, Normacephalic Cardiovascular: Rhythm Regular, No Murmur Respiratory: Normal Breath Sounds, No Rales, No Rhonchi, No Wheezing Gastrointestinal/Abdominal: Bowel Sounds (normal), Soft, No Tenderness, Other (swollen area in left groin mildly tender, left buttock indurated, erythematous, warm with ulcerated skin from top to bottom. No discharge ) <Subha Banegas - Last Filed: 06/07/18 19:25> ED Course And Treatment - Laboratory Results Result Diagrams: 06/07/18 16:29 06/07/18 16:29 O2 Sat by Pulse Oximetry: 100 (on RA) Pulse Ox Interpretation: Normal <Subha Banegas - Last Filed: 06/07/18 19:25> - Laboratory Results Result Diagrams: 06/07/18 16:29 06/07/18 16:29 Lab Results: Total Bilirubin 0.4 mg/dL (0.2-1.3) 06/07/18 16:29 AST 42 U/L (14-36) H D 06/07/18 16:29 ALT < 6 U/L (9-52) L D 06/07/18 16:29 Alkaline Phosphatase 164 U/L (38-126) H 06/07/18 16:29 Total Protein 8.9 g/dL (6.3-8.3) H 06/07/18 16: Albumin 4.0 g/dL (3.5-5.0) 06/07/18 16: Globulin 4.8 gm/dL (2.2-3.9) H 06/07/18 16: Albumin/Globulin Ratio 0.8 (1.0-2.1) L 06/07/18 16:29 Urine Color Yellow (YELLOW) 06/07/18 16:29 Urine Clarity Hazy (Clear) 06/07/18 16:29 Urine pH 7.0 (5.0-8.0) 06/07/18 16:29 Ur Specific [place] 1.009 (1.003-1.030) 06/07/18 16:29 Urine Protein 2+ mg/dL (NEGATIVE) H 06/07/18 16:29 Urine Glucose (UA) Normal mg/dL (Normal) 06/07/18 16:29 Urine Ketones Negative mg/dL (NEGATIVE) 06/07/18 16:29 Urine Blood 3+ (NEGATIVE) H 06/07/18 16:29 Urine Nitrate Negative (NEGATIVE) 06/07/18 16:29 Urine Bilirubin Negative (NEGATIVE) 06/07/18 16:29 Urine Urobilinogen Normal mg/dL (0.2-1.0) 06/07/18 16:29 Ur Leukocyte Esterase 1+ Jam/uL (Negative) H 06/07/18 16:29 Urine WBC (Auto) 12 /hpf (0-5) H 06/07/18 16:29 Urine RBC (Auto) 152 /hpf (0-3) H 06/07/18 16:29 Ur Squamous Epith Cells 4 /hpf (0-5) 06/07/18 16:29 Urine Bacteria Few (<OCC) H 06/07/18 16:29 <Dez Kent - Last Filed: 06/07/18 21:14> Medical Decision Making Medical Decision Making: Plan: Toradol 30mg IVP Urine Culture Labs CAT A&P POC Urine Surgical consult called. <Subha Banegas - Last Filed: 06/07/18 19:25> Medical Decision Makin cleared by surgery: Per surgery: TOA? OBGYN. OBGYN consult called: DR. Stiles to see pt. pt in NAD. Clindamycin given Appreciate consult w/ Dr. Oconnell: to admit to his service ; pts primary does not come here <Dez Kent - Last Filed: 06/07/18 21:14> Disposition - Disposition Disposition Time: 19:23 <Subha Banegas - Last Filed: 06/07/18 19:25> <Dez Kent - Last Filed: 06/07/18 21:14> - Disposition Condition: GOOD Forms: [facility] (Indonesian) - Clinical Impression Clinical Impression: Skin ulcer of multiple sites of buttock - Scribe Statement The provider has reviewed the documentation as recorded by the Marizaibmarkos Magana All medical record entries made by the Marizaibmarkos were at my direction and personally dictated by me. I have reviewed the chart and agree that the record accurately reflects my personal performance of the history, physical exam, medical decision making, and the department course for this patient. I have also personally directed, reviewed, and agree with the discharge instructions and disposition. <Subha Banegas - Last Filed: 06/07/18 19:25> Physician Patient Turnover Patient Signed Over To: Dez Kent Handoff Comments: f/u surg consult and disposition <Subha Banegas - Last Filed: 06/07/18 19:25>
[2018-06-07 16:40] LABS: BASO # 0.1 K/uL (0.0-0.2); BASO % 1.2 % (0.0-2.0); EOS # 0.2 K/uL (0.0-0.7); EOS % 2.8 % (0.0-4.0); HEMOGLOBIN 11.2 g/dL (11.0-16.0); LYMPH # 1.7 K/uL (1.0-4.3); LYMPH % 20.4 % (20.0-40.0); MEAN CELL VOLUME 80.9 fL (81.0-99.0); MEAN CORPUSCULAR HGB CONC 32.2 g/dL (33.0-37.0); MEAN PLATELET VOLUME 6.9 fL (7.2-11.7); MONO # 0.9 K/uL (0.0-0.8); MONO % 10.6 % (0.0-10.0); NEUT # 5.4 K/uL (1.8-7.0); RBC 4.3 Mil/uL (3.80-5.20); RED CELL DISTRIBUTION WIDTH 15.4 % (11.5-14.5); WHITE BLOOD COUNT 8.3 K/uL (4.8-10.8)
[2018-06-07 16:42] LABS: SQUAMOUS EPITHIAL 4 /hpf (0-5); URINE BACTERIA FEW (<OCC); URINE BILIRUBIN NEGATIVE (NEGATIVE); URINE BLOOD 3+ (NEGATIVE); URINE CLARITY Hazy (Clear); URINE GLUCOSE (UA) NORMAL (Normal); URINE LEUKOCYTE ESTERASE 1+ Leu/uL (Negative); URINE PROTEIN 2+ mg/dL (NEGATIVE); URINE UROBILINOGEN NORMAL mg/dL (0.2-1.0)
[2018-06-07 16:44] LABS: URINE COLOR YELLOW (YELLOW)
[2018-06-07 16:56] LABS: ALB/GLOB RATIO 0.8 (1.0-2.1); AST/SGOT 42 U/L (14-36); BLOOD UREA NITROGEN 11 mg/dL (7-17); CALCIUM 8.6 mg/dl (8.6-10.4); GFR NON-AFRICAN AMERICAN > 60
[2018-06-07 16:59] LABS: ALT/SGPT < 6 U/L (9-52)
[2018-06-07 17:06] LABS: BARBITURATES, UR NEGATIVE (NEGATIVE); BENZODIAZEPINES, UR NEGATIVE (NEGATIVE); OPIATES, UR NEGATIVE (NEGATIVE); PHENCYCLIDINE, UR NEGATIVE (NEGATIVE)
[2018-06-07] MEDS ORDERED: Iohexol 300 100 ML IJ ONE (17:10)
--- NOTE | 2018-06-07 18:00 | CT ---
Date of service: 06/07/2018 PROCEDURE: CT Abdomen and Pelvis with contrast HISTORY: Abdomen and back pain. Negative test (concurrent with this examination). COMPARISON: 02/08/2017 TECHNIQUE: Intravenous contrast dose: 100 cc Omnipaque 300. Radiation dose: Total exam DLP = 1089.72 mGy-cm. This CT exam was performed using one or more of the following dose reduction techniques: Automated exposure control, adjustment of the mA and/or kV according to patient size, and/or use of iterative reconstruction technique. FINDINGS: LOWER THORAX: Unremarkable. LIVER: Unremarkable. No gross lesion or ductal dilatation. GALLBLADDER AND BILE DUCTS: Unremarkable. PANCREAS: Unremarkable. No gross lesion or ductal dilatation. SPLEEN: Unremarkable. ADRENALS: Unremarkable. No mass. KIDNEYS AND URETERS: Unremarkable. No hydronephrosis. No solid mass. VASCULATURE: Unremarkable. No aortic aneurysm. No atherosclerotic calcification or mural plaque present. BOWEL: Unremarkable. No obstruction. No gross mural thickening. APPENDIX: A normal appendix is visualized in it's entirety. PERITONEUM: Unremarkable. No free fluid. No free air. LYMPH NODES: Stable bilaterally enlarged inguinal lymph nodes. BLADDER: Diffuse bladder wall thickening without focal abnormality likely reflective of cystitis. REPRODUCTIVE: Dominant cystic/tubular structures involving both adnexa. BONES: No acute fracture. OTHER FINDINGS: Left gluteal and perineal skin thickening with adjacent foci of air within soft tissues. Likely sinus tract or fistulous communication with the vagina. Similar findings were seen previously, the degree of soft tissue prominence appears less than that which appears Low pelvic rectus diastasis. These are new findings likely postoperative compared to the prior CT scan. Skin thickening suggests the sequela of prior radiation therapy. Please correlate clinically IMPRESSION: 1. Chronic changes left gluteal region, medial aspect of thigh extending to the perineum. Suspicious findings for fistulous communication/sinus tract with the vagina. 2. Anterior lower abdominal postoperative change with rectus diastasis and herniation of fat. 3. Skin thickening anteriorly suggestive of radiation treatment. 4. Thickening of the wall of the bladder likely cystitis. 5. Cystic/tubular structures affecting both adnexa. Pelvic ultrasound may be beneficial for further evaluation. Atypical cyst/tubo-ovarian abscesses/hydrosalpinx should be considered.
[2018-06-07] MEDS ORDERED: Clindamycin 600mg/50ml D5W 600 MG/50 ML VIAL IVPB SCH ×2 (19:30→20:15)
--- NOTE | 2018-06-07 20:08 | CP.PCM.CON ---
History of Present Illness - History of Present Illness History of Present Illness: SURGERY CONSULT NOTE FOR DR. BARTHOLOMEW 42F patient presents to ED with right buttock wound. Patient has a history of hidradenitis in the groin region. She underwent a large operation at [place] including taking out a large piece of abdominal wall which was infected and also from groin region. She states she had grafts placed but the one in the groin didnt take well. She admits to tenderness in the buttock wound, denies purulent drainage and fevers. PMH: Hidradenitis PSH: Multiple incision and drainage of groin abscess, Large debridement of abdominal wall/groin infection NKDA Past Patient History - Infectious Disease Hx of Infectious Diseases: None - Past Medical History & Family History Past Medical History?: Yes - Past Social History Smoking Status: Never Smoked - CARDIAC Hx Cardiac Disorders: No - PULMONARY Hx Respiratory Disorders: No - NEUROLOGICAL Hx Neurological Disorder: No - HEENT Hx HEENT Problems: No - RENAL Hx Chronic Kidney Disease: No - ENDOCRINE/METABOLIC Hx Endocrine Disorders: No - HEMATOLOGICAL/ONCOLOGICAL Hx Anemia: Yes - INTEGUMENTARY Other/Comment: Pus filled drainage on left anterior pubis - MUSCULOSKELETAL/RHEUMATOLOGICAL Hx Falls: No - GASTROINTESTINAL Hx Gastrointestinal Disorders: No - GENITOURINARY/GYNECOLOGICAL Hx Genitourinary Disorders: No - PSYCHIATRIC Hx Depression: Yes Hx Substance Use: No - SURGICAL HISTORY Hx Surgeries: No Hx Dilation and Curettage: Yes Other/Comment: skin graph/abdominal wall - ANESTHESIA Hx Anesthesia: Yes Hx Anesthesia Reactions: No Meds Allergies/Adverse Reactions: Allergies Allergy/AdvReac Type Severity Reaction Status Date / Time No Known Allergies Allergy Verified 06/07/18 14:40 - Medications Medications: Current Medications Clindamycin Phosphate (Cleocin 600mg/50ml D5w) 600 mg in 50 mls @ 100 mls/hr IVPB STAT EYAL; Protocol Physical Exam - Constitutional Appears: Non-toxic, No Acute Distress - Eye Exam Eye Exam: EOMI, PERRL - Respiratory Exam Respiratory Exam: Clear to Auscultation Bilateral, NORMAL BREATHING PATTERN - Cardiovascular Exam Cardiovascular Exam: REGULAR RHYTHM, +S1, +S2 - GI/Abdominal Exam GI & Abdominal Exam: Soft. absent: Distended, Firm, Guarding, Rebound, Rigid, Tenderness - Rectal Exam Additional comments: Right buttock wound, raw skin, no purulent drainage or fluctuance. - Extremities Exam Extremities exam: Negative for: pedal edema, tenderness - Neurological Exam Neurological exam: Alert, Oriented x3 - Psychiatric Exam Psychiatric exam: Normal Affect, Normal Mood - Skin Skin Exam: Dry, Intact, Normal Color, Warm Results - Vital Signs Recent Vital Signs: Last Vital Signs Temp 97.9 F 06/07/18 14:41 Pulse 79 06/07/18 14:41 Resp 16 06/07/18 14:41 BP 124/66 06/07/18 14:41 Pulse Ox 100 06/07/18 19:25 - Labs Result Diagrams: 06/07/18 16:29 06/07/18 16:29 Labs: Laboratory Results - last 24 hr 06/07/18 06/07/18 06/07/18 16:29 16:29 16:29 WBC 8.3 RBC 4.30 Hgb 11.2 D Hct 34.8 MCV 80.9 L D MCH 26.0 L MCHC 32.2 L RDW 15.4 H Plt Count 318 D MPV 6.9 L Neut % (Auto) 65.0 Lymph % (Auto) 20.4 [place] % (Auto) 10.6 H Eos % (Auto) 2.8 Baso % (Auto) 1.2 Neut # (Auto) 5.4 Lymph # (Auto) 1.7 [place] # (Auto) 0.9 H Eos # (Auto) 0.2 Baso # (Auto) 0.1 Sodium 135 Potassium 3.8 Chloride 102 Carbon Dioxide 25 Anion Gap 12 BUN 11 Creatinine 0.8 Est GFR ( Amer) > 60 Est GFR (Non-Af Amer) > 60 Random Glucose 95 Calcium 8.6 Total Bilirubin 0.4 AST 42 H D ALT < 6 L D Alkaline Phosphatase 164 H Total Protein 8.9 H Albumin 4.0 Globulin 4.8 H Albumin/Globulin Ratio 0.8 L Urine Color Yellow Urine Clarity Hazy Urine pH 7.0 Ur Specific [place] 1.009 Urine Protein 2+ H Urine Glucose (UA) Normal Urine Ketones Negative Urine Blood 3+ H Urine Nitrate Negative Urine Bilirubin Negative Urine Urobilinogen Normal Ur Leukocyte Esterase 1+ H Urine WBC (Auto) 12 H Urine RBC (Auto) 152 H Ur Squamous Epith Cells 4 Urine Bacteria Few H Urine Opiates Screen Urine Methadone Screen Ur Barbiturates Screen Ur Phencyclidine Scrn Ur Amphetamines Screen U Benzodiazepines Scrn U Oth Cocaine Metabols U Cannabinoids Screen 06/07/18 16:29 WBC RBC Hgb Hct MCV MCH MCHC RDW Plt Count MPV Neut % (Auto) Lymph % (Auto) [place] % (Auto) Eos % (Auto) Baso % (Auto) Neut # (Auto) Lymph # (Auto) [place] # (Auto) Eos # (Auto) Baso # (Auto) Sodium Potassium Chloride Carbon Dioxide Anion Gap BUN Creatinine Est GFR ( Amer) Est GFR (Non-Af Amer) Random Glucose Calcium Total Bilirubin AST ALT Alkaline Phosphatase Total Protein Albumin Globulin Albumin/Globulin Ratio Urine Color Urine Clarity Urine pH Ur Specific [place] Urine Protein Urine Glucose (UA) Urine Ketones Urine Blood Urine Nitrate Urine Bilirubin Urine Urobilinogen Ur Leukocyte Esterase Urine WBC (Auto) Urine RBC (Auto) Ur Squamous Epith Cells Urine Bacteria Urine Opiates Screen Negative Urine Methadone Screen Negative Ur Barbiturates Screen Negative Ur Phencyclidine Scrn Negative Ur Amphetamines Screen Negative U Benzodiazepines Scrn Negative U Oth Cocaine Metabols Negative U Cannabinoids Screen Negative Assessment & Plan - Assessment and Plan (Free Text) Assessment: 42F with buttock wound s/p multiple debridement of groin and buttock infection Findings on CT consistent with recently operation Plan: - local wound care - Keep area clean - No surgical intervention at this time Further recs per Dr. Eugenie Mart, PGY3
[2018-06-07] MEDS ORDERED: Clindamycin 600mg/50ml NS 600 MG/50 ML BAG IVPB ONE (20:10)
[2018-06-07] MEDS ORDERED: Clindamycin 600mg/50ml NS 600 MG/50 ML BAG IVPB SCH (20:15)
[2018-06-07] MEDS ORDERED: Clindamycin 600mg/50ml D5W 600 MG/50 ML VIAL IVPB ONE (20:18)
--- NOTE | 2018-06-07 21:27 | CP.PCM.HP ---
<Caren Constantino - Last Filed: 06/07/18 21:41> History of Present Illness - History of Present Illness History of Present Illness: 42 yo presents to the ER with right buttock wound. During the evaluation of her wound secondary to hidradenitis, she had a CT scan and was incidentally found to have a possible atypical cyst/tubo-ovarian abscess/hydrosalpinx. OBGYN being consulted for these abnormal findings. Of note, general surgery was consulted for her wound and recommended patient to have local wound care. Patient denies abdominal pain, nausea, vomiting, diarrhea, fevers, chills. Primary care: Dr. Arpita Swan PMHx: hidrandenitis, anemia [employer] hx: Denies hx of abn'l pap smear and STDs. LMF May 15. Menarche at 12 y/o. Periods are monthly and last for 4 days, moderate flow. OB hx: miscarriage 4 years ago at 6 months - admits to trauma from miscarriage of a fetus late in gestational age. Second miscarriage at 3 months in 1999. Has 4 children alive and healthy ages 25, 26, 22, and 11 - all . PSHx: I&D of her wound Mar 2018 and Oct 2017 FHx: Non contributory SocHx: Denies tobacco and illicit drugs. Drinks EtOH socially on some weekends. Meds: ferrous sulfate about every other day to avoid constipation, fish oil, vitamin D, percocet 5/325 q4h PRN (half a pill each time because a full pill "too strong" - rx in Mar post op) All: NKDA ROS: as per HPI Present on Admission - Present on Admission Any Indicators Present on Admission: Yes Past Patient History - Infectious Disease Hx of Infectious Diseases: None - Past Medical History & Family History Past Medical History?: Yes - Past Social History Smoking Status: Never Smoked - CARDIAC Hx Cardiac Disorders: No - PULMONARY Hx Respiratory Disorders: No - NEUROLOGICAL Hx Neurological Disorder: No - HEENT Hx HEENT Problems: No - RENAL Hx Chronic Kidney Disease: No - ENDOCRINE/METABOLIC Hx Endocrine Disorders: No - HEMATOLOGICAL/ONCOLOGICAL Hx Anemia: Yes - INTEGUMENTARY Other/Comment: Pus filled drainage on left anterior pubis - MUSCULOSKELETAL/RHEUMATOLOGICAL Hx Falls: No - GASTROINTESTINAL Hx Gastrointestinal Disorders: No - GENITOURINARY/GYNECOLOGICAL Hx Genitourinary Disorders: No - PSYCHIATRIC Hx Depression: Yes Hx Substance Use: No - SURGICAL HISTORY Hx Surgeries: No Hx Dilation and Curettage: Yes Other/Comment: skin graph/abdominal wall - ANESTHESIA Hx Anesthesia: Yes Hx Anesthesia Reactions: No Meds Allergies/Adverse Reactions: Allergies Allergy/AdvReac Type Severity Reaction Status Date / Time No Known Allergies Allergy Verified 06/07/18 14:40 Physical Exam - Constitutional Appears: Well, Non-toxic - Head Exam Head Exam: ATRAUMATIC, NORMAL INSPECTION - Eye Exam Eye Exam: Normal appearance - Neck Exam Neck exam: Positive for: Normal Inspection - Respiratory Exam Respiratory Exam: Clear to Auscultation Bilateral, NORMAL BREATHING PATTERN - Cardiovascular Exam Cardiovascular Exam: REGULAR RHYTHM - GI/Abdominal Exam GI & Abdominal Exam: Normal Bowel Sounds, Soft. absent: Tenderness - Extremities Exam Extremities exam: Positive for: normal inspection. Negative for: calf tenderness - Neurological Exam Neurological exam: Alert, Oriented x3 - Psychiatric Exam Psychiatric exam: Normal Affect, Normal Mood - Skin Skin Exam: Normal Color, Warm Additional comments: deferred skin exam of affected area Results - Vital Signs Recent Vital Signs: Last Vital Signs Temp 98.3 F 06/07/18 20:08 Pulse 78 06/07/18 20:08 Resp 16 06/07/18 14:41 BP 117/70 06/07/18 20:08 Pulse Ox 97 06/07/18 20:08 - Labs Result Diagrams: 06/07/18 16:29 06/07/18 16:29 Labs: Laboratory Results - last 24 hr 06/07/18 06/07/18 06/07/18 16:29 16:29 16:29 WBC 8.3 RBC 4.30 Hgb 11.2 D Hct 34.8 MCV 80.9 L D MCH 26.0 L MCHC 32.2 L RDW 15.4 H Plt Count 318 D MPV 6.9 L Neut % (Auto) 65.0 Lymph % (Auto) 20.4 [place] % (Auto) 10.6 H Eos % (Auto) 2.8 Baso % (Auto) 1.2 Neut # (Auto) 5.4 Lymph # (Auto) 1.7 [place] # (Auto) 0.9 H Eos # (Auto) 0.2 Baso # (Auto) 0.1 Sodium 135 Potassium 3.8 Chloride 102 Carbon Dioxide 25 Anion Gap 12 BUN 11 Creatinine 0.8 Est GFR ( Amer) > 60 Est GFR (Non-Af Amer) > 60 Random Glucose 95 Calcium 8.6 Total Bilirubin 0.4 AST 42 H D ALT < 6 L D Alkaline Phosphatase 164 H Total Protein 8.9 H Albumin 4.0 Globulin 4.8 H Albumin/Globulin Ratio 0.8 L Urine Color Yellow Urine Clarity Hazy Urine pH 7.0 Ur Specific [place] 1.009 Urine Protein 2+ H Urine Glucose (UA) Normal Urine Ketones Negative Urine Blood 3+ H Urine Nitrate Negative Urine Bilirubin Negative Urine Urobilinogen Normal Ur Leukocyte Esterase 1+ H Urine WBC (Auto) 12 H Urine RBC (Auto) 152 H Ur Squamous Epith Cells 4 Urine Bacteria Few H Urine Opiates Screen Urine Methadone Screen Ur Barbiturates Screen Ur Phencyclidine Scrn Ur Amphetamines Screen U Benzodiazepines Scrn U Oth Cocaine Metabols U Cannabinoids Screen 06/07/18 16:29 WBC RBC Hgb Hct MCV MCH MCHC RDW Plt Count MPV Neut % (Auto) Lymph % (Auto) [place] % (Auto) Eos % (Auto) Baso % (Auto) Neut # (Auto) Lymph # (Auto) [place] # (Auto) Eos # (Auto) Baso # (Auto) Sodium Potassium Chloride Carbon Dioxide Anion Gap BUN Creatinine Est GFR ( Amer) Est GFR (Non-Af Amer) Random Glucose Calcium Total Bilirubin AST ALT Alkaline Phosphatase Total Protein Albumin Globulin Albumin/Globulin Ratio Urine Color Urine Clarity Urine pH Ur Specific [place] Urine Protein Urine Glucose (UA) Urine Ketones Urine Blood Urine Nitrate Urine Bilirubin Urine Urobilinogen Ur Leukocyte Esterase Urine WBC (Auto) Urine RBC (Auto) Ur Squamous Epith Cells Urine Bacteria Urine Opiates Screen Negative Urine Methadone Screen Negative Ur Barbiturates Screen Negative Ur Phencyclidine Scrn Negative Ur Amphetamines Screen Negative U Benzodiazepines Scrn Negative U Oth Cocaine Metabols Negative U Cannabinoids Screen Negative Assessment & Plan - Assessment and Plan (Free Text) Assessment: 42 year old presents to the ED with a right buttock wound. She has a history of hidrandenitis. During workup, was incidentally discovered to have possible atypical ovarian cyst/TOA/hydrosalpinx. atypical ovarian cyst/TOA/hydrosalpinx -see CT findings 06/07 -pending TVUS -patient currently afebrile, no leukocytosis - will need to follow routine VS and labs -abx, local wound care, and outpatient follow up recommended at this time. -Patient without an OBGYN outpatient physician - she might need one depending on TVUS results. Thank you for this consult. We will follow PRN. case discussed with attending, Dr. Go Constantino PGY1 <Jose M Stiles - Last Filed: 06/07/18 22:49> Results - Vital Signs Recent Vital Signs: Last Vital Signs Temp 97.9 F 06/07/18 22:09 Pulse 83 06/07/18 22:09 Resp 20 06/07/18 22:09 BP 123/77 06/07/18 22:09 Pulse Ox 98 06/07/18 22:09 - Labs Result Diagrams: 06/07/18 16:29 06/07/18 16:29 Labs: Laboratory Results - last 24 hr 06/07/18 06/07/18 06/07/18 16:29 16:29 16:29 WBC 8.3 RBC 4.30 Hgb 11.2 D Hct 34.8 MCV 80.9 L D MCH 26.0 L MCHC 32.2 L RDW 15.4 H Plt Count 318 D MPV 6.9 L Neut % (Auto) 65.0 Lymph % (Auto) 20.4 [place] % (Auto) 10.6 H Eos % (Auto) 2.8 Baso % (Auto) 1.2 Neut # (Auto) 5.4 Lymph # (Auto) 1.7 [place] # (Auto) 0.9 H Eos # (Auto) 0.2 Baso # (Auto) 0.1 Sodium 135 Potassium 3.8 Chloride 102 Carbon Dioxide 25 Anion Gap 12 BUN 11 Creatinine 0.8 Est GFR ( Amer) > 60 Est GFR (Non-Af Amer) > 60 Random Glucose 95 Calcium 8.6 Total Bilirubin 0.4 AST 42 H D ALT < 6 L D Alkaline Phosphatase 164 H Total Protein 8.9 H Albumin 4.0 Globulin 4.8 H Albumin/Globulin Ratio 0.8 L Urine Color Yellow Urine Clarity Hazy Urine pH 7.0 Ur Specific [place] 1.009 Urine Protein 2+ H Urine Glucose (UA) Normal Urine Ketones Negative Urine Blood 3+ H Urine Nitrate Negative Urine Bilirubin Negative Urine Urobilinogen Normal Ur Leukocyte Esterase 1+ H Urine WBC (Auto) 12 H Urine RBC (Auto) 152 H Ur Squamous Epith Cells 4 Urine Bacteria Few H Urine Opiates Screen Urine Methadone Screen Ur Barbiturates Screen Ur Phencyclidine Scrn Ur Amphetamines Screen U Benzodiazepines Scrn U Oth Cocaine Metabols U Cannabinoids Screen 06/07/18 16:29 WBC RBC Hgb Hct MCV MCH MCHC RDW Plt Count MPV Neut % (Auto) Lymph % (Auto) [place] % (Auto) Eos % (Auto) Baso % (Auto) Neut # (Auto) Lymph # (Auto) [place] # (Auto) Eos # (Auto) Baso # (Auto) Sodium Potassium Chloride Carbon Dioxide Anion Gap BUN Creatinine Est GFR ( Amer) Est GFR (Non-Af Amer) Random Glucose Calcium Total Bilirubin AST ALT Alkaline Phosphatase Total Protein Albumin Globulin Albumin/Globulin Ratio Urine Color Urine Clarity Urine pH Ur Specific [place] Urine Protein Urine Glucose (UA) Urine Ketones Urine Blood Urine Nitrate Urine Bilirubin Urine Urobilinogen Ur Leukocyte Esterase Urine WBC (Auto) Urine RBC (Auto) Ur Squamous Epith Cells Urine Bacteria Urine Opiates Screen Negative Urine Methadone Screen Negative Ur Barbiturates Screen Negative Ur Phencyclidine Scrn Negative Ur Amphetamines Screen Negative U Benzodiazepines Scrn Negative U Oth Cocaine Metabols Negative U Cannabinoids Screen Negative Assessment & Plan - Assessment and Plan (Free Text) Assessment: Review of Us images shows BL ovarian cyst. Will f/u Us report and recommend f/u as out pt to see the resolution of ovarian cyst.
--- NOTE | 2018-06-07 22:28 | CP.PCM.HP ---
History of Present Illness - History of Present Illness History of Present Illness: H&P for Dr. Florez. 42F with PMHx of hidradenitis and anemia presents to ED with severely painful L buttock wound. States she's had the wound for 2 years and started gradually worsening last October. States she takes 1/2 percocet for the pain, but ran out 2 days ago and could not stand the pain. Patient states wound drains pink secretio ns for the past two years. Associated symptoms include chills. Patient denies fever, weakness, nausea, vomiting, fecal material draining from wound, diarrhea, constipation, hematochezia, melena, abdominal pain. Patient reports similar hidradenitis to the L groin region which became infected and required a large operation at [facility] involving debridement of infection and skin graft to L groin. PMH: Hidradenitis, anemia PSH: Multiple I&D of groin abscess, Large debridement of abdominal wall/groin infection Oct 2017 FHx: Grandmother- endometrial cancer SocHx: Denies tobacco and illicit drugs. Drinks EtOH socially on some weekends. Lives with her and takes care of her grandchild during the day. Meds: ferrous sulfate about every other day to avoid constipation, fish oil, vitamin D, percocet 5/325 q4h PRN (half a pill each time because a full pill "too strong" - rx in Mar post op) All: NKDA Primary care: Dr. Arpita Swan Review of Systems: -Gen: No fever, + chills, No headache, No lethargy, No weakness. -HEENT: No dizziness, No change in vision, No change in hearing, No sore throat, No dysphagia, No nasal congestion, No mucous. -Cardio: No chest pain, No palpitations, No lower extremity edema, No orthopnea. -Resp: No cough, No dyspnea, No hemoptysis, No wheezing, No pain on inspiration. -GI: No abdominal pain, No nausea/vomiting, No diarrhea/constipation, No hematochezia, No hematemesis. -: No dysuria, No urinary freq, No incontinence, No hematuria, No change in urinary stream. -MSK: No back pain, No muscle weakness, No radiating pain. -Skin: +L buttock wound -Neuro: No confusion, No numbness, No tingling, No focal weakness, No radicular pain, No syncope. -Psych: No anxiety, No depression, No H/I, No S/I, No hallucinations. Present on Admission - Present on Admission Any Indicators Present on Admission: No Past Patient History - Infectious Disease Hx of Infectious Diseases: None - Past Medical History & Family History Past Medical History?: Yes - Past Social History Smoking Status: Never Smoked - CARDIAC Hx Cardiac Disorders: No - PULMONARY Hx Respiratory Disorders: No - NEUROLOGICAL Hx Neurological Disorder: No - HEENT Hx HEENT Problems: No - RENAL Hx Chronic Kidney Disease: No - ENDOCRINE/METABOLIC Hx Endocrine Disorders: No - HEMATOLOGICAL/ONCOLOGICAL Hx Anemia: Yes - INTEGUMENTARY Other/Comment: Pus filled drainage on left anterior pubis - MUSCULOSKELETAL/RHEUMATOLOGICAL Hx Falls: No - GASTROINTESTINAL Hx Gastrointestinal Disorders: No - GENITOURINARY/GYNECOLOGICAL Hx Genitourinary Disorders: No - PSYCHIATRIC Hx Depression: Yes Hx Substance Use: No - SURGICAL HISTORY Hx Surgeries: No Hx Dilation and Curettage: Yes Other/Comment: skin graph/abdominal wall - ANESTHESIA Hx Anesthesia: Yes Hx Anesthesia Reactions: No Meds Allergies/Adverse Reactions: Allergies Allergy/AdvReac Type Severity Reaction Status Date / Time No Known Allergies Allergy Verified 06/07/18 14:40 Physical Exam - Constitutional Appears: Non-toxic, No Acute Distress - Head Exam Head Exam: ATRAUMATIC, NORMOCEPHALIC - Eye Exam Eye Exam: EOMI, Normal appearance, PERRL - ENT Exam ENT Exam: Mucous Membranes Moist - Neck Exam Neck exam: Positive for: Full Rom, Normal Inspection - Respiratory Exam Respiratory Exam: Clear to Auscultation Bilateral. absent: Rales, Rhonchi, Wheezes - Cardiovascular Exam Cardiovascular Exam: REGULAR RHYTHM, +S1, +S2 - GI/Abdominal Exam GI & Abdominal Exam: Soft, Tenderness (mild tenderness to palpation along lower abdominal surgical scar). absent: Distended, Guarding, Rebound Additional comments: Skin graft to L lower abdomen - Extremities Exam Extremities exam: Positive for: normal inspection, pedal pulses present. Negative for: calf tenderness, pedal edema, tenderness - Neurological Exam Neurological exam: Alert, CN II-XII Intact (grossly), Oriented x3 - Psychiatric Exam Psychiatric exam: Normal Affect, Normal Mood - Skin Additional comments: 15 cm ulceration along L gluteal cleft, tender to palpation, no purulent drainage noted, no foul odor, non-fluctuant. Surrounding skin is hyperpigmented and thickened. Results - Vital Signs Recent Vital Signs: Last Vital Signs Temp 97.9 F 06/07/18 22:09 Pulse 83 06/07/18 22:09 Resp 20 06/07/18 22:09 BP 123/77 06/07/18 22:09 Pulse Ox 98 06/07/18 22:09 - Labs Result Diagrams: 06/08/18 06:41 06/08/18 06:41 Labs: Laboratory Results - last 24 hr 06/07/18 06/07/18 06/07/18 16:29 16:29 16:29 WBC 8.3 RBC 4.30 Hgb 11.2 D Hct 34.8 MCV 80.9 L D MCH 26.0 L MCHC 32.2 L RDW 15.4 H Plt Count 318 D MPV 6.9 L Neut % (Auto) 65.0 Lymph % (Auto) 20.4 [place] % (Auto) 10.6 H Eos % (Auto) 2.8 Baso % (Auto) 1.2 Neut # (Auto) 5.4 Lymph # (Auto) 1.7 [place] # (Auto) 0.9 H Eos # (Auto) 0.2 Baso # (Auto) 0.1 Sodium 135 Potassium 3.8 Chloride 102 Carbon Dioxide 25 Anion Gap 12 BUN 11 Creatinine 0.8 Est GFR ( Amer) > 60 Est GFR (Non-Af Amer) > 60 Random Glucose 95 Calcium 8.6 Total Bilirubin 0.4 AST 42 H D ALT < 6 L D Alkaline Phosphatase 164 H Total Protein 8.9 H Albumin 4.0 Globulin 4.8 H Albumin/Globulin Ratio 0.8 L Urine Color Yellow Urine Clarity Hazy Urine pH 7.0 Ur Specific [place] 1.009 Urine Protein 2+ H Urine Glucose (UA) Normal Urine Ketones Negative Urine Blood 3+ H Urine Nitrate Negative Urine Bilirubin Negative Urine Urobilinogen Normal Ur Leukocyte Esterase 1+ H Urine WBC (Auto) 12 H Urine RBC (Auto) 152 H Ur Squamous Epith Cells 4 Urine Bacteria Few H Urine Opiates Screen Urine Methadone Screen Ur Barbiturates Screen Ur Phencyclidine Scrn Ur Amphetamines Screen U Benzodiazepines Scrn U Oth Cocaine Metabols U Cannabinoids Screen 06/07/18 16:29 WBC RBC Hgb Hct MCV MCH MCHC RDW Plt Count MPV Neut % (Auto) Lymph % (Auto) [place] % (Auto) Eos % (Auto) Baso % (Auto) Neut # (Auto) Lymph # (Auto) [place] # (Auto) Eos # (Auto) Baso # (Auto) Sodium Potassium Chloride Carbon Dioxide Anion Gap BUN Creatinine Est GFR ( Amer) Est GFR (Non-Af Amer) Random Glucose Calcium Total Bilirubin AST ALT Alkaline Phosphatase Total Protein Albumin Globulin Albumin/Globulin Ratio Urine Color Urine Clarity Urine pH Ur Specific [place] Urine Protein Urine Glucose (UA) Urine Ketones Urine Blood Urine Nitrate Urine Bilirubin Urine Urobilinogen Ur Leukocyte Esterase Urine WBC (Auto) Urine RBC (Auto) Ur Squamous Epith Cells Urine Bacteria Urine Opiates Screen Negative Urine Methadone Screen Negative Ur Barbiturates Screen Negative Ur Phencyclidine Scrn Negative Ur Amphetamines Screen Negative U Benzodiazepines Scrn Negative U Oth Cocaine Metabols Negative U Cannabinoids Screen Negative Assessment & Plan - Assessment and Plan (Free Text) Assessment: 42 year old female with L buttock wound L Buttock wound Hx of hidradenitis CT abdomen: L gluteal and perineal skin thickening with adjacent foci of air within soft tissues. Likely sinus tract or fistulous communication with the vagina. General Surgery consulted. Recommend local wound care. No surgical intervention Wound care consult Clindamycin 600mg IVPB Q12H Percocet 5mg half tab Q4H PRN Possible TOA-unlikely possible atypical cyst/tubo-ovarian abscess/hydrosalpinx thought on unoffical read of CT abdomen CT abdomen official read: dominant cystic/tubular structures involving both adnexa Transvaginal US official Read: Complicated hemorrhagic cyst in R ovarian, No sonographic evidence for tubo-ovarian or pelvic abscess. See full report afebrile, no leukocytosis Hx of anemia Ferrous sulfate 325mg daily Colace 100mg PO daily PPx SCDs Encourage ambulation GI ppx not indicated at this time Discussed with Dr. Florez. Coleen Chacon, PGY-1
[2018-06-08] MEDS ORDERED: Oxycodone/Acetaminophen 5/325 mg Tab PO ONE (00:38)
[2018-06-08] MEDS: Oxycodone/Acetaminophen 5/325 mg Tab PO PRN ×4 (05:49→21:31)
[2018-06-08 06:56] LABS: BASO # 0.1 K/uL (0.0-0.2); BASO % 1.3 % (0.0-2.0); EOS # 0.3 K/uL (0.0-0.7); EOS % 5.7 % (0.0-4.0); HEMOGLOBIN 10.8 g/dL (11.0-16.0); LYMPH # 1.5 K/uL (1.0-4.3); LYMPH % 26.1 % (20.0-40.0); MEAN CELL VOLUME 79.9 fL (81.0-99.0); MEAN CORPUSCULAR HEMOGLOBIN 26.5 pg (27.0-31.0); MEAN CORPUSCULAR HGB CONC 33.2 g/dL (33.0-37.0); MEAN PLATELET VOLUME 6.8 fL (7.2-11.7); MONO # 0.7 K/uL (0.0-0.8); MONO % 12.4 % (0.0-10.0); NEUT # 3.2 K/uL (1.8-7.0); NEUT % 54.5 % (50.0-75.0); RBC 4.07 Mil/uL (3.80-5.20); RED CELL DISTRIBUTION WIDTH 15.2 % (11.5-14.5); WHITE BLOOD COUNT 5.8 K/uL (4.8-10.8)
[2018-06-08 07:45] LABS: ALB/GLOB RATIO 0.8 (1.0-2.1); ALBUMIN 3.3 g/dL (3.5-5.0); ALT/SGPT 8 U/L (9-52); AST/SGOT 37 U/L (14-36); BLOOD UREA NITROGEN 10 mg/dL (7-17); CALCIUM 8.3 mg/dl (8.6-10.4); GFR NON-AFRICAN AMERICAN > 60
--- NOTE | 2018-06-08 09:38 | US ---
Date of service: 06/07/2018 HISTORY: abscess? COMPARISON: None available. TECHNIQUE: Transabdominal and transvaginal pelvic ultrasound was performed. FINDINGS: UTERUS: Measures 8.5 x 3.9 x 5.3 cm. Anteverted, normal in size and appearance. No fibroid or other mass lesion seen. ENDOMETRIUM: Measures 9.8 mm in diameter. Normal in appearance. CERVIX: Multiple complicated nabothian cysts in the cervix. RIGHT OVARY: Measures 3.6 x 2.3 x 3.5 cm. No solid mass. Normal flow. There is a 2.9 cm complicated/hemorrhagic cyst. LEFT OVARY: Measures 3.6 x 3.0 x 3.5 cm. No solid mass. Normal flow. 1.2 x 0.8 x 1.3 cm simple cyst. FREE FLUID: No significant free fluid noted. OTHER FINDINGS: None. IMPRESSION: 1. 2.9 cm complicated/hemorrhagic cyst in the right ovary. 2. Multiple complicated nabothian cysts in the cervix. 3. No sonographic evidence for tubo-ovarian or pelvic abscess. A preliminary report was provided by [employer].
[2018-06-08] MEDS: Silver Sulfadiazine 1% Cream (20 gm) TOP SCH (13:31)
--- NOTE | 2018-06-08 13:53 | CP.PCM.PN ---
Subjective - Date & Time of Evaluation Date of Evaluation: 06/08/18 Time of Evaluation: 13:51 - Subjective Subjective: Medicine Progress Note for Dr. Florez's service S/E at bedside. Reports pain at site of buttock wound. Denies fevers, chills, cp, sob, n/v, constipation or diarrhea, and dysuria. Objective - Vital Signs/Intake and Output Vital Signs (last 24 hours): Temp Pulse Resp BP Pulse Ox 97.9 F 61 20 103/65 100 06/08/18 07:35 06/08/18 07:35 06/08/18 07:35 06/08/18 07:35 06/08/18 07:35 Intake and Output: 06/08/18 06/08/18 06:59 18:59 Intake Total 240 Balance 240 - Medications Medications: Current Medications Acetaminophen (Tylenol 325mg Tab) 650 mg PO Q6 PRN PRN Reason: Pain, moderate (4-7) Docusate Sodium (Colace) 100 mg PO DAILY [facility] Ferrous Sulfate (Feosol) 325 mg PO DAILY [facility] Clindamycin Phosphate 600 mg/ (Sodium Chloride) 54 mls @ 100 mls/hr IVPB Q12H [facility]; Protocol Last Admin: 06/08/18 08:47 Dose: 100 mls/hr Oxycodone/Acetaminophen (Percocet 5/325 Mg Tab) 1 tab PO Q4H PRN PRN Reason: Pain, moderate (4-7) Stop: 06/11/18 01:46 Last Admin: 06/08/18 09:56 Dose: 1 tab Silver Sulfadiazine (Silvadene 1% 20 Gm) 1 ea TOP DAILY [facility] Last Admin: 06/08/18 13:31 Dose: 1 applic - Labs Labs: 06/08/18 06:41 06/08/18 06:41 - Constitutional Appears: Non-toxic, No Acute Distress - Head Exam Head Exam: NORMAL INSPECTION, NORMOCEPHALIC - Eye Exam Eye Exam: EOMI, Normal appearance - ENT Exam ENT Exam: Mucous Membranes Dry - Respiratory Exam Respiratory Exam: Clear to Ausculation Bilateral, NORMAL BREATHING PATTERN. absent: Rhonchi, Wheezes - Cardiovascular Exam Cardiovascular Exam: REGULAR RHYTHM, +S1, +S2 - GI/Abdominal Exam GI & Abdominal Exam: Soft, Normal Bowel Sounds. absent: Guarding, Rigid, Tenderness Additional comments: well healed scar beneath belly button appreciable bulge 2/2 graft insertion with prior groin infection - Exam Additional comments: right buttock superficial wound extending from right superior buttock to right lower posterior thigh no oozing appreciated - Extremities Exam Extremities Exam: Normal Inspection. absent: Calf Tenderness, Pedal Edema - Neurological Exam Neurological Exam: Alert, Awake, Oriented x3 - Psychiatric Exam Psychiatric exam: Normal Affect, Normal Mood - Skin Skin Exam: Dry, Intact, Normal Color Assessment and Plan - Assessment and Plan (Free Text) Assessment: 42 yo female w/ prior severe wound infection admitted for extensive buttock wound. Plan: Buttock Wound Surgery Consulted: Dr. Yamini cardoso appreciated ID Consulted: Dr. Brigette cardoso appreciated CT abd/pelvis: chronic changes left gluteal region, medial aspec of thigh extending to the perineum. suspicious findings for fistulous communication/sinus tract with the vagina. Read full report for full information. Abdomen/Pelvis/Transvag US: no signs of tubulo-ovaraian abscess IV clindamycin 600mg IVPB q24h Oxycodone 5mg po q4h Tylenol 650mg po PRN Silvadene topical to applied to wound BCx pending GI ppx: Contraindicated at this time DVT ppx: SCDs b/l Case d/w Dr. Florez PGY-1 Abigail Jaeger
[2018-06-08] MEDS ORDERED: Oxycodone/Acetaminophen 5/325 mg Tab PO PRN (15:53)
--- NOTE | 2018-06-08 19:57 | CP.PCM.CON ---
History of Present Illness - History of Present Illness History of Present Illness: 42F with PMHx of hidradenitis and anemia presents to ED with severely painful L buttock wound. States she's had the wound for 2 years and started gradually worsening last October. Patient reports similar hidradenitis to the L groin r egion which became infected and required a large operation at [place] involving debridement of infection and skin graft to L groin. PMH: Hidradenitis, anemia PSH: Multiple I&D of groin abscess, Large debridement of abdominal wall/groin infection Oct 2017 FHx: Grandmother- endometrial cancer SocHx: Denies tobacco and illicit drugs. Drinks EtOH socially on some weekends. Lives with her and takes care of her grandchild during the day. Meds: ferrous sulfate about every other day to avoid constipation, fish oil, vitamin D, percocet 5/325 q4h PRN (half a pill each time because a full pill "too strong" - rx in Mar post op) All: NKDA Primary care: Dr. Arpita Swan Review of Systems - Constitutional Constitutional: As Per HPI. absent: Anorexia, Chills, Daytime Sleepiness, Excessive Sweating, Fatigue, Fever, Frequent Falls, Headache, Increased Appetite, Lethargy, Malaise, Night Sweats, Snoring, Sleep Apnea, Weight Gain, Weight Loss, Weakness, Other - EENT Eyes: absent: As Per HPI, Blind Spots, Blurred Vision, Change in Vision, Decreased Night Vision, Diplopia, Discharge, Dry Eye, Exophthalmos, Floaters, Irritation, Itchy Eyes, Loss of Peripheral Vision, Pain, Photophobia, Requires Corrective Lenses, Sees Flashes, Spots in Vision, Tunnel Vision, Other Visual Disturbances, Loss of Vision, Other Ears: absent: As Per HPI, Decreased Hearing, Ear Discharge, Ear Pain, Tinnitus, Abnormal Hearing, Disequilibrium, Dizziness, Other Nose/Mouth/Throat: absent: As Per HPI, Epistaxis, Nasal Congestion, Nasal Discharge, Nasal Obstruction, Nasal Trauma, Nose Pain, Post Nasal Drip, Sinus Pain, Sinus Pressure, Bleeding Gums, Change in Voice, Dental Pain, Dry Mouth, Dysphagia, Halitosis, Hoarsness, Lip Swelling, Mouth Lesions, Mouth Pain, Odynophagia, Sore Throat, Throat Swelling, Tongue Swelling, Facial Pain, Neck Pain, Neck Mass, Other - Breasts Breasts: absent: As Per HPI, Change in Shape, Mass, Pain, Nipple Discharge, Nipple Inversion, Skin Changes, Swelling, Other - Cardiovascular Cardiovascular: absent: As Per HPI, Acrocyanosis, Chest Pain, Chest Pain at Rest, Chest Pain with Activity, Claudication, Diaphoresis, Dyspnea, Dyspnea on Exertion, Edema, Irregular Heart Rhythm, Pain Radiating to Arm/Neck/Jaw, Leg Edema, Leg Ulcers, Lightheadedness, Orthopnea, Palpitations, Paroxysmal Nocturnal Dyspnea, Pedal Edema, Radiating Pain, Rapid Heart Rate, Slow Heart Rate, Syncope, Other - Respiratory Respiratory: absent: As Per HPI, Cough, Dyspnea, Hemoptysis, Dyspnea on Exertion, Wheezing, Snoring, Stridor, Pain on Inspiration, Chest Congestion, Excessive Mucous Production, Change in Mucous Color, Pain with Coughing, Other - Genitourinary Genitourinary: absent: As Per HPI, Change in Urinary Stream, Difficulty Urinating, Dysuria, Flank Pain, Hematuria, Pyuria, Nocturia, Urinary Incontinence, Urinary Frequency, Urinary Hesitance, Urinary Urgency, Voiding Meño q/Small Amts, Freq UTI, Hx Renal/Bladder Calculi, Hx /Renal Surgery, Bladder Distension, Other - Reproductive: Female Reproductive:Female: absent: As Per HPI, Amenorrhea, Amenorrhea/ Control, Currently Menstual, Cycle <21 Days, Cycle >35 Days, Cycle Variable, Menses 1-7 Days, Menses >/= 8 Days, Menses Variable, Cycle > 4 Weeks Between, No Menses for 6 Months, Heavy Menses, Light Menses, Normal Menses, Spotting Between Cycles, S/P Hysterectomy, Menopausal, Post Menopausal, Premenarche, Abnormal Vaginal Bleeding, Dysmenorrhea, Dyspareunia, Genital Lesions, Genital Pruritis, Pelvic Pain, Prolapse Symptoms, Sexual Dysfunction, Vaginal Discharge, Vaginal Dryness, Vaginal Odor, Vaginal Pruritis, Other - Menstruation Menstruation: absent: As Per HPI, Amenorrhea, Amenorrhea/ Control, Currently Menstual, Cycle <21 Days, Cycle >35 Days, Cycle Variable, Menses 1-7 Days, Menses >/= 8 Days, Menses Variable, Cycle > 4 Weeks Between, No Menses for 6 Months, Heavy Menses, Light Menses, Normal Menses, Spotting Between Cycles, S/P Hysterectomy, Menopausal, Post Menopausal, Premenarche, Abnormal Vaginal Bleeding, Dysmenorrhea, Other - Integumentary Integumentary: As Per HPI, Skin Pain, Sores, Wounds - Neurological Neurological: absent: As Per HPI, Abnormal Gait, Abnormal Hearing, Abnormal Movements, Abnormal Speech, Behavioral Changes, Burning Sensations, Confusion, Convulsions, Disequilibrium, Dizziness, Numbness, Focal Weakness, Frequent Falls, Headaches, Lack of Coordination, Loss of Vision, Memory Loss, Paresthesias, Radicular Pain, Restless Legs, Sensory Deficit, Syncope, Tingling, Tremor, Vertigo, Weakness, Other Visual Disturbances, Other - Psychiatric Psychiatric: absent: As Per HPI, Abnormal Sleep Pattern, Anhedonia, Anxiety, Auditory Hallucinations, Behavioral Changes, Change in Appetite, Change in Libido, Confusion, Depression, Difficulty Concentrating, Hallucinations, Homicidal Ideation, Hopelessness, Irritability, Memory Loss, Mood Swings, Panic Attacks, Paranoia, Suicidal Ideation, Visual Hallucinations, Tactile Hallucinations, Other - Endocrine Endocrine: absent: As Per HPI, Change in Body Appearance, Change in Libido, Cold Intolorance, Deepening of Voice, Excessive Sweating, Fatigue, Flushing, Heat Intolorance, Increase in Ring/Shoe/Hat Size, Palpitations, Polydipsia, Polyphagia, Polyuria, Other Past Patient History - Infectious Disease Hx of Infectious Diseases: None - Past Medical History & Family History Past Medical History?: Yes - Past Social History Smoking Status: Never Smoked - CARDIAC Hx Cardiac Disorders: No - PULMONARY Hx Respiratory Disorders: No - NEUROLOGICAL Hx Neurological Disorder: No - HEENT Hx HEENT Problems: No - RENAL Hx Chronic Kidney Disease: No - ENDOCRINE/METABOLIC Hx Endocrine Disorders: No - HEMATOLOGICAL/ONCOLOGICAL Hx Anemia: Yes - INTEGUMENTARY Other/Comment: Pus filled drainage on left anterior pubis - MUSCULOSKELETAL/RHEUMATOLOGICAL Hx Falls: No - GASTROINTESTINAL Hx Gastrointestinal Disorders: No - GENITOURINARY/GYNECOLOGICAL Hx Genitourinary Disorders: No - PSYCHIATRIC Hx Depression: Yes Hx Substance Use: No - SURGICAL HISTORY Hx Surgeries: No Hx Dilation and Curettage: Yes Other/Comment: skin graph/abdominal wall - ANESTHESIA Hx Anesthesia: Yes Hx Anesthesia Reactions: No Meds Allergies/Adverse Reactions: Allergies Allergy/AdvReac Type Severity Reaction Status Date / Time No Known Allergies Allergy Verified 06/07/18 14:40 - Medications Medications: Current Medications Acetaminophen (Tylenol 325mg Tab) 650 mg PO Q6 PRN PRN Reason: Pain, moderate (4-7) Clindamycin Phosphate 600 mg/ (Sodium Chloride) 54 mls @ 100 mls/hr IVPB Q12H [facility]; Protocol Last Admin: 06/08/18 08:47 Dose: 100 mls/hr Oxycodone/Acetaminophen (Percocet 5/325 Mg Tab) 1 tab PO Q6H PRN PRN Reason: Pain, moderate (4-7) Stop: 06/11/18 15:54 Silver Sulfadiazine (Silvadene 1% 20 Gm) 1 ea TOP DAILY [facility] Last Admin: 06/08/18 13:31 Dose: 1 applic Physical Exam - Constitutional Appears: Non-toxic, Chronically Ill - Head Exam Head Exam: NORMOCEPHALIC - Eye Exam Eye Exam: absent: Scleral icterus Pupil Exam: NORMAL ACCOMODATION - ENT Exam ENT Exam: Mucous Membranes Dry, Normal External Ear Exam - Neck Exam Neck exam: Negative for: Lymphadenopathy - Respiratory Exam Respiratory Exam: Decreased Breath Sounds, Clear to Auscultation Bilateral - Cardiovascular Exam Cardiovascular Exam: REGULAR RHYTHM, +S1, +S2 - GI/Abdominal Exam GI & Abdominal Exam: Diminished Bowel Sounds, Soft. absent: Tenderness - Rectal Exam Rectal Exam: Deferred - Exam Exam: NORMAL INSPECTION - Back Exam Back exam: NORMAL INSPECTION - Neurological Exam Neurological exam: Alert, CN II-XII Intact, Oriented x3, Reflexes Normal - Psychiatric Exam Psychiatric exam: Normal Mood - Skin Additional comments: open wound left buttock area with surrounding erythema no dillon pus extensive scars across lower abdomen from prev surgery Results - Vital Signs Recent Vital Signs: Last Vital Signs Temp 98.5 F 06/08/18 16:00 Pulse 77 06/08/18 16:00 Resp 20 06/08/18 16:00 BP 117/82 06/08/18 16:00 Pulse Ox 98 06/08/18 16:00 - Labs Result Diagrams: 06/09/18 07:26 06/09/18 07:26 Labs: Laboratory Results - last 24 hr 06/08/18 06/08/18 06:41 06:41 WBC 5.8 RBC 4.07 Hgb 10.8 L Hct 32.5 L MCV 79.9 L MCH 26.5 L MCHC 33.2 RDW 15.2 H Plt Count 291 MPV 6.8 L Neut % (Auto) 54.5 Lymph % (Auto) 26.1 [place] % (Auto) 12.4 H Eos % (Auto) 5.7 H Baso % (Auto) 1.3 Neut # (Auto) 3.2 Lymph # (Auto) 1.5 [place] # (Auto) 0.7 Eos # (Auto) 0.3 Baso # (Auto) 0.1 Sodium 135 Potassium 3.8 Chloride 105 Carbon Dioxide 22 Anion Gap 12 BUN 10 Creatinine 0.9 Est GFR ( Amer) > 60 Est GFR (Non-Af Amer) > 60 Random Glucose 82 Calcium 8.3 L Total Bilirubin 0.4 AST 37 H ALT 8 L D Alkaline Phosphatase 137 H Total Protein 7.7 Albumin 3.3 L Globulin 4.4 H Albumin/Globulin Ratio 0.8 L Assessment & Plan (1) Skin ulcer of multiple sites of buttock Status: Acute (2) Hidradenitis suppurativa Status: Acute - Assessment and Plan (Free Text) Assessment: hx of hydradenitis 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
[2018-06-09] MEDS: Oxycodone/Acetaminophen 5/325 mg Tab PO PRN ×3 (03:41→18:22)
[2018-06-09 07:48] LABS: BASO # 0.1 K/uL (0.0-0.2); BASO % 1.4 % (0.0-2.0); EOS # 0.3 K/uL (0.0-0.7); EOS % 5.1 % (0.0-4.0); LYMPH # 1.4 K/uL (1.0-4.3); LYMPH % 24.7 % (20.0-40.0); MEAN CELL VOLUME 80.3 fL (81.0-99.0); MEAN CORPUSCULAR HEMOGLOBIN 26.7 pg (27.0-31.0); MEAN CORPUSCULAR HGB CONC 33.3 g/dL (33.0-37.0); MEAN PLATELET VOLUME 7.2 fL (7.2-11.7); MONO # 0.7 K/uL (0.0-0.8); MONO % 12.4 % (0.0-10.0); NEUT # 3.1 K/uL (1.8-7.0); NEUT % 56.4 % (50.0-75.0); NRBC % 0.1 % (0.0-2.0); RBC 4.11 Mil/uL (3.80-5.20); RED CELL DISTRIBUTION WIDTH 15.4 % (11.5-14.5); WHITE BLOOD COUNT 5.5 K/uL (4.8-10.8)
[2018-06-09 08:05] LABS: ALB/GLOB RATIO 0.8 (1.0-2.1); ALBUMIN 3.7 g/dL (3.5-5.0); ALT/SGPT 10 U/L (9-52); AST/SGOT 35 U/L (14-36); BLOOD UREA NITROGEN 10 mg/dL (7-17); CALCIUM 8.5 mg/dl (8.6-10.4); GFR NON-AFRICAN AMERICAN > 60
--- NOTE | 2018-06-09 08:31 | CP.PCM.PN ---
Subjective - Date & Time of Evaluation Date of Evaluation: 06/09/18 Time of Evaluation: 08:30 - Subjective Subjective: Medicine Progress Note: Patient seen and examined at bedside. Per nursing no acute events occurred overnight .Patient denies any fevers, chills, headaches, dizziness, abdominal pain, or any other complaints. Objective - Vital Signs/Intake and Output Vital Signs (last 24 hours): Temp Pulse Resp BP Pulse Ox 98.7 F 72 18 104/61 99 06/09/18 08:03 06/09/18 08:03 06/09/18 08:03 06/09/18 08:03 06/09/18 08:03 Intake and Output: 06/09/18 06/09/18 06:59 18:59 Intake Total 350 360 Balance 350 360 - Medications Medications: Current Medications Acetaminophen (Tylenol 325mg Tab) 650 mg PO Q6 PRN PRN Reason: Pain, moderate (4-7) Clindamycin Phosphate 600 mg/ (Sodium Chloride) 54 mls @ 100 mls/hr IVPB Q12H EYAL; Protocol Last Admin: 06/08/18 21:28 Dose: 100 mls/hr Oxycodone/Acetaminophen (Percocet 5/325 Mg Tab) 1 tab PO Q6H PRN PRN Reason: Pain, moderate (4-7) Stop: 06/11/18 15:54 Last Admin: 06/09/18 03:41 Dose: 1 tab Silver Sulfadiazine (Silvadene 1% 20 Gm) 1 ea TOP DAILY EYAL Last Admin: 06/08/18 13:31 Dose: 1 applic - Labs Labs: 06/09/18 07:26 06/09/18 07:26 - Head Exam Head Exam: ATRAUMATIC, NORMAL INSPECTION - Eye Exam Eye Exam: EOMI, Normal appearance, PERRL Pupil Exam: NORMAL ACCOMODATION, PERRL - ENT Exam ENT Exam: Mucous Membranes Moist, Normal Exam, Normal Oropharynx - Respiratory Exam Respiratory Exam: Clear to Ausculation Bilateral, NORMAL BREATHING PATTERN. absent: Decreased Breath Sounds, Rales - Cardiovascular Exam Cardiovascular Exam: REGULAR RHYTHM, +S1, +S2. absent: JVD, RRR - GI/Abdominal Exam GI & Abdominal Exam: Soft, Normal Bowel Sounds. absent: Hyperactive Bowel Sounds - Extremities Exam Extremities Exam: Normal Inspection. absent: Pedal Edema - Back Exam Back Exam: NORMAL INSPECTION - Neurological Exam Neurological Exam: Alert, Awake, CN II-XII Intact, Oriented x3 - Psychiatric Exam Psychiatric exam: Normal Affect, Normal Mood. absent: Anxious - Skin Skin Exam: Dry, Intact Assessment and Plan - Assessment and Plan (Free Text) Plan: Buttock Wound Surgery Consulted: Dr. Yamini cardoso appreciated ID Consulted: Dr. Brigette cardoso appreciated CT abd/pelvis: chronic changes left gluteal region, medial aspec of thigh extending to the perineum. suspicious findings for fistulous communication/sinus tract with the vagina. Read full report for full information. Abdomen/Pelvis/Transvag US: no signs of tubulo-ovaraian abscess IV clindamycin 600mg IVPB q24h Oxycodone 5mg po q4h Tylenol 650mg po PRN Silvadene topical to applied to wound BCx pending GI ppx: Contraindicated at this time DVT ppx: SCDs b/l Case d/w Dr. Gautam Bland, PGY-2
[2018-06-09] MEDS: Silver Sulfadiazine 1% Cream (20 gm) TOP SCH (10:32)
[2018-06-09 17:23] VITALS: RESP 20
[2018-06-10] MEDS: Oxycodone/Acetaminophen 5/325 mg Tab PO PRN ×3 (01:09→16:25)
--- NOTE | 2018-06-10 07:55 | CP.PCM.PN ---
Subjective - Date & Time of Evaluation Date of Evaluation: 06/10/18 Time of Evaluation: 07:55 - Subjective Subjective: Medicine Progress Note: Patient seen and examined at bedside. Per nursing no acute events occurred overnight .Patient denies any fevers, chills, headaches, dizziness, abdominal pain, or any other complaints. Objective - Vital Signs/Intake and Output Vital Signs (last 24 hours): Temp Pulse Resp BP Pulse Ox 97.8 F 67 20 110/69 99 06/10/18 00:25 06/10/18 00:25 06/10/18 00:25 06/10/18 00:25 06/10/18 00:25 Intake and Output: 06/10/18 06/10/18 06:59 18:59 Intake Total 490 Balance 490 - Medications Medications: Current Medications Acetaminophen (Tylenol 325mg Tab) 650 mg PO Q6 PRN PRN Reason: Pain, moderate (4-7) Clindamycin Phosphate 600 mg/ (Sodium Chloride) 54 mls @ 100 mls/hr IVPB Q12H EYAL; Protocol Last Admin: 06/10/18 07:30 Dose: 100 mls/hr Oxycodone/Acetaminophen (Percocet 5/325 Mg Tab) 1 tab PO Q6H PRN PRN Reason: Pain, moderate (4-7) Stop: 06/11/18 15:54 Last Admin: 06/10/18 01:09 Dose: 1 tab Silver Sulfadiazine (Silvadene 1% 20 Gm) 1 ea TOP DAILY EYAL Last Admin: 06/09/18 10:32 Dose: 1 applic - Labs Labs: 06/09/18 07:26 06/09/18 07:26 - Head Exam Head Exam: ATRAUMATIC, NORMAL INSPECTION - Eye Exam Eye Exam: EOMI, Normal appearance, PERRL Pupil Exam: NORMAL ACCOMODATION, PERRL. absent: Irregular, Unequal - ENT Exam ENT Exam: Mucous Membranes Moist, Normal Oropharynx - Respiratory Exam Respiratory Exam: Clear to Ausculation Bilateral, NORMAL BREATHING PATTERN. absent: Prolonged Expiratory Phase, Respiratory Distress - Cardiovascular Exam Cardiovascular Exam: REGULAR RHYTHM, +S1, +S2 - GI/Abdominal Exam GI & Abdominal Exam: Soft, Normal Bowel Sounds. absent: Hyperactive Bowel Sounds - Extremities Exam Extremities Exam: Normal Inspection. absent: Pedal Edema - Back Exam Back Exam: NORMAL INSPECTION. absent: CVA tenderness (R), paraspinal tenderness - Neurological Exam Neurological Exam: Alert, Awake, CN II-XII Intact, Oriented x3 - Psychiatric Exam Psychiatric exam: Normal Affect, Normal Mood. absent: Depressed - Skin Skin Exam: Dry, Intact Assessment and Plan - Assessment and Plan (Free Text) Plan: Buttock Wound Surgery Consulted: Dr. Yamini cardoso appreciated ID Consulted: Dr. Brigette cardoso appreciated CT abd/pelvis: chronic changes left gluteal region, medial aspec of thigh extending to the perineum. suspicious findings for fistulous communication/sinus tract with the vagina. Read full report for full information. Abdomen/Pelvis/Transvag US: no signs of tubulo-ovaraian abscess IV clindamycin 600mg IVPB q24h Oxycodone 5mg po q4h Tylenol 650mg po PRN Silvadene topical to applied to wound BCx (-) x 48hours GI ppx: Contraindicated at this time DVT ppx: SCDs b/l Case d/w Dr. Gautam Bland, PGY-2
[2018-06-10 08:42] LABS: BASO # 0.1 K/uL (0.0-0.2); BASO % 1.3 % (0.0-2.0); EOS # 0.3 K/uL (0.0-0.7); EOS % 6.5 % (0.0-4.0); HEMOGLOBIN 11.4 g/dL (11.0-16.0); LYMPH # 1.4 K/uL (1.0-4.3); LYMPH % 27.8 % (20.0-40.0); MEAN CORPUSCULAR HEMOGLOBIN 26.2 pg (27.0-31.0); MEAN CORPUSCULAR HGB CONC 32.4 g/dL (33.0-37.0); MEAN PLATELET VOLUME 7.1 fL (7.2-11.7); MONO # 0.5 K/uL (0.0-0.8); MONO % 10.5 % (0.0-10.0); NEUT # 2.8 K/uL (1.8-7.0); NEUT % 53.9 % (50.0-75.0); RBC 4.33 Mil/uL (3.80-5.20); RED CELL DISTRIBUTION WIDTH 15.4 % (11.5-14.5); WHITE BLOOD COUNT 5.2 K/uL (4.8-10.8)
[2018-06-10 09:10] LABS: ALB/GLOB RATIO 0.9 (1.0-2.1); ALBUMIN 3.7 g/dL (3.5-5.0); ALT/SGPT 11 U/L (9-52); AST/SGOT 34 U/L (14-36); BLOOD UREA NITROGEN 11 mg/dL (7-17); CALCIUM 8.5 mg/dl (8.6-10.4); GFR NON-AFRICAN AMERICAN > 60
[2018-06-10] MEDS: Silver Sulfadiazine 1% Cream (20 gm) TOP SCH (10:52)
--- NOTE | 2018-06-10 15:59 | CP.PCM.PN ---
Subjective - Date & Time of Evaluation Date of Evaluation: 06/10/18 Time of Evaluation: 07:00 - Subjective Subjective: chart reviewed patient examined no new complaints orders signed Objective - Vital Signs/Intake and Output Vital Signs (last 24 hours): Temp Pulse Resp BP Pulse Ox 97.8 F 61 20 101/65 98 06/10/18 08:07 06/10/18 08:07 06/10/18 08:07 06/10/18 08:07 06/10/18 08:07 Intake and Output: 06/10/18 06/10/18 06:59 18:59 Intake Total 490 350 Balance 490 350 - Medications Medications: Current Medications Acetaminophen (Tylenol 325mg Tab) 650 mg PO Q6 PRN PRN Reason: Pain, moderate (4-7) Clindamycin Phosphate 600 mg/ (Sodium Chloride) 54 mls @ 100 mls/hr IVPB Q12H EYAL; Protocol Last Admin: 06/10/18 07:30 Dose: 100 mls/hr Oxycodone/Acetaminophen (Percocet 5/325 Mg Tab) 1 tab PO Q6H PRN PRN Reason: Pain, moderate (4-7) Stop: 06/11/18 15:54 Last Admin: 06/10/18 08:38 Dose: 1 tab Silver Sulfadiazine (Silvadene 1% 20 Gm) 1 ea TOP DAILY EYAL Last Admin: 06/10/18 10:52 Dose: 1 applic - Labs Labs: 06/10/18 08:15 06/10/18 08:15 - Constitutional Appears: Non-toxic, No Acute Distress, Chronically Ill - Head Exam Head Exam: ATRAUMATIC, NORMAL INSPECTION, NORMOCEPHALIC - Eye Exam Eye Exam: EOMI, Normal appearance, PERRL Pupil Exam: NORMAL ACCOMODATION, PERRL - ENT Exam ENT Exam: Mucous Membranes Moist, Normal Exam - Neck Exam Neck Exam: Full ROM, Normal Inspection. absent: Lymphadenopathy - Respiratory Exam Respiratory Exam: Clear to Ausculation Bilateral, NORMAL BREATHING PATTERN - Cardiovascular Exam Cardiovascular Exam: REGULAR RHYTHM, +S1, +S2. absent: Murmur - GI/Abdominal Exam GI & Abdominal Exam: Soft, Normal Bowel Sounds. absent: Tenderness - Rectal Exam Rectal Exam: Deferred - Exam Exam: NORMAL INSPECTION - Extremities Exam Extremities Exam: Full ROM, Normal Capillary Refill, Normal Inspection. absent: Joint Swelling, Pedal Edema - Back Exam Back Exam: NORMAL INSPECTION - Neurological Exam Neurological Exam: Alert, Awake, CN II-XII Intact, Normal Gait, Oriented x3 - Psychiatric Exam Psychiatric exam: Normal Affect, Normal Mood - Skin Skin Exam: Dry, Intact Additional comments: left buttock wound shows denuded skin no pus no drainage + redness Assessment and Plan (1) Skin ulcer of multiple sites of buttock Status: Acute (2) Hidradenitis suppurativa Status: Acute - Assessment and Plan (Free Text) Assessment: cont IV and topical rx wound care and derm follow up
[2018-06-11] MEDS: Oxycodone/Acetaminophen 5/325 mg Tab PO PRN ×3 (01:18→15:22)
[2018-06-11 07:22] LABS: ALB/GLOB RATIO 0.8 (1.0-2.1); ALBUMIN 3.6 g/dL (3.5-5.0); ALT/SGPT 12 U/L (9-52); AST/SGOT 31 U/L (14-36); BASO # 0.1 K/uL (0.0-0.2); BASO % 1.4 % (0.0-2.0); BLOOD UREA NITROGEN 10 mg/dL (7-17); CALCIUM 8.1 mg/dl (8.6-10.4); EOS # 0.3 K/uL (0.0-0.7); EOS % 5.3 % (0.0-4.0); GFR NON-AFRICAN AMERICAN > 60; HEMOGLOBIN 10.7 g/dL (11.0-16.0); LYMPH # 1.5 K/uL (1.0-4.3); LYMPH % 30.1 % (20.0-40.0); MEAN CELL VOLUME 80.5 fL (81.0-99.0); MEAN CORPUSCULAR HEMOGLOBIN 26.8 pg (27.0-31.0); MEAN CORPUSCULAR HGB CONC 33.3 g/dL (33.0-37.0); MEAN PLATELET VOLUME 7.3 fL (7.2-11.7); MONO # 0.6 K/uL (0.0-0.8); MONO % 12.8 % (0.0-10.0); NEUT # 2.5 K/uL (1.8-7.0); NEUT % 50.4 % (50.0-75.0); NRBC % 0.1 % (0.0-2.0); RBC 4.01 Mil/uL (3.80-5.20); RED CELL DISTRIBUTION WIDTH 15.9 % (11.5-14.5)
[2018-06-11] MEDS: Silver Sulfadiazine 1% Cream (20 gm) TOP SCH (09:20)
--- NOTE | 2018-06-11 14:35 | CP.PCM.DIS ---
Provider - Provider Date of Admission: 06/07/18 21:11 Attending physician: Sulaiman Florez Jr, MD Consults: 06/07/18 18:27 General Surgery Consult Stat Comment: Consulting Provider: Braden Traore Consulting Physician: Braden Traore Reason for Consult: eval for fistula 06/07/18 23:37 Wound Care [Nursing Referral for Wound Care] Routine Comment: Physician Instructions: Reason For Exam: Large L buttock wound 06/08/18 11:15 Infectious Disease Consult Routine Comment: Consulting Provider: Khris Bland Consulting Physician: Khris Bland Reason for Consult: concern for pyoderma gangrenosum 06/11/18 11:30 General Surgery Consult Routine Comment: Consulting Provider: Adalberto Schaeffer Jr. Consulting Physician: Adalberto Schaeffer Jr. Reason for Consult: skin biospy; at [facility] Time Spent in preparation of Discharge (in minutes): 34 Diagnosis - Discharge Diagnosis (1) Skin ulcer of multiple sites of buttock Status: Acute Hospital Course - Lab Results Lab Results: Micro Results 06/07/18 22:07 Blood-Venous Blood Culture - Preliminary NO GROWTH AFTER 3 DAYS 06/07/18 22:07 Blood-Venous Blood Culture - Preliminary NO GROWTH AFTER 3 DAYS 06/07/18 16:29 Urine Random Urine Culture - Final No Growth (<1,000 CFU/ML) Most Recent Lab Values WBC 5.0 K/uL (4.8-10.8) 06/11/18 07:00 RBC 4.01 Mil/uL (3.80-5.20) 06/11/18 07:00 Hgb 10.7 g/dL (11.0-16.0) L 06/11/18 07:00 Hct 32.3 % (34.0-47.0) L 06/11/18 07:00 MCV 80.5 fL (81.0-99.0) L 06/11/18 07:00 MCH 26.8 pg (27.0-31.0) L 06/11/18 07:00 MCHC 33.3 g/dL (33.0-37.0) 06/11/18 07:00 RDW 15.9 % (11.5-14.5) H 06/11/18 07:00 Plt Count 279 K/uL (130-400) 06/11/18 07:00 MPV 7.3 fL (7.2-11.7) 06/11/18 07:00 Neut % (Auto) 50.4 % (50.0-75.0) 06/11/18 07:00 Lymph % (Auto) 30.1 % (20.0-40.0) 06/11/18 07:00 [place] % (Auto) 12.8 % (0.0-10.0) H 06/11/18 07:00 Eos % (Auto) 5.3 % (0.0-4.0) H 06/11/18 07:00 Baso % (Auto) 1.4 % (0.0-2.0) 06/11/18 07:00 Neut # (Auto) 2.5 K/uL (1.8-7.0) 06/11/18 07:00 Lymph # (Auto) 1.5 K/uL (1.0-4.3) 06/11/18 07:00 [place] # (Auto) 0.6 K/uL (0.0-0.8) 06/11/18 07:00 Eos # (Auto) 0.3 K/uL (0.0-0.7) 06/11/18 07:00 Baso # (Auto) 0.1 K/uL (0.0-0.2) 06/11/18 07:00 Sodium 136 mmol/L (132-148) 06/11/18 07:00 Potassium 4.0 mmol/L (3.6-5.2) 06/11/18 07:00 Chloride 106 mmol/L (98-107) 06/11/18 07:00 Carbon Dioxide 21 mmol/L (22-30) L 06/11/18 07:00 Anion Gap 13 (10-20) 06/11/18 07:00 BUN 10 mg/dL (7-17) 06/11/18 07:00 Creatinine 0.7 mg/dL (0.7-1.2) 06/11/18 07:00 Est GFR ( Amer) > 60 06/11/18 07:00 Est GFR (Non-Af Amer) > 60 06/11/18 07:00 Random Glucose 110 mg/dL (65-105) H 06/11/18 07:00 Calcium 8.1 mg/dl (8.6-10.4) L 06/11/18 07:00 Total Bilirubin 0.2 mg/dL (0.2-1.3) 06/11/18 07:00 AST 31 U/L (14-36) 06/11/18 07:00 ALT 12 U/L (9-52) 06/11/18 07:00 Alkaline Phosphatase 134 U/L (38-126) H 06/11/18 07:00 Total Protein 7.9 g/dL (6.3-8.3) 06/11/18 07:00 Albumin 3.6 g/dL (3.5-5.0) 06/11/18 07:00 Globulin 4.3 gm/dL (2.2-3.9) H 06/11/18 07:00 Albumin/Globulin Ratio 0.8 (1.0-2.1) L 06/11/18 07:00 Urine Color Yellow (YELLOW) 06/07/18 16:29 Urine Clarity Hazy (Clear) 06/07/18 16:29 Urine pH 7.0 (5.0-8.0) 06/07/18 16:29 Ur Specific [place] 1.009 (1.003-1.030) 06/07/18 16:29 Urine Protein 2+ mg/dL (NEGATIVE) H 06/07/18 16:29 Urine Glucose (UA) Normal mg/dL (Normal) 06/07/18 16:29 Urine Ketones Negative mg/dL (NEGATIVE) 06/07/18 16:29 Urine Blood 3+ (NEGATIVE) H 06/07/18 16:29 Urine Nitrate Negative (NEGATIVE) 06/07/18 16:29 Urine Bilirubin Negative (NEGATIVE) 06/07/18 16:29 Urine Urobilinogen Normal mg/dL (0.2-1.0) 06/07/18 16:29 Ur Leukocyte Esterase 1+ Jam/uL (Negative) H 06/07/18 16:29 Urine WBC (Auto) 12 /hpf (0-5) H 06/07/18 16:29 Urine RBC (Auto) 152 /hpf (0-3) H 06/07/18 16:29 Ur Squamous Epith Cells 4 /hpf (0-5) 06/07/18 16:29 Urine Bacteria Few (<OCC) H 06/07/18 16:29 Urine Opiates Screen Negative (NEGATIVE) 06/07/18 16:29 Urine Methadone Screen Negative (NEGATIVE) 06/07/18 16:29 Ur Barbiturates Screen Negative (NEGATIVE) 06/07/18 16:29 Ur Phencyclidine Scrn Negative (NEGATIVE) 06/07/18 16:29 Ur Amphetamines Screen Negative (NEGATIVE) 06/07/18 16:29 U Benzodiazepines Scrn Negative (NEGATIVE) 06/07/18 16:29 U Oth Cocaine Metabols Negative (NEGATIVE) 06/07/18 16:29 U Cannabinoids Screen Negative (NEGATIVE) 06/07/18 16:29 - Hospital Course Hospital Course: Upon Admission 42F with PMHx of hidradenitis and anemia presents to ED with severely painful L buttock wound. States she's had the wound for 2 years and started gradually worsening last October. States she takes 1/2 percocet for the pain, but ran out 2 days ago and could not stand the pain. Patient states wound drains pink secretions for the past two years. Associated symptoms include chills. Patient denies fever, weakness, nausea, vomiting, fecal material draining from wound, diarrhea, constipation, hematochezia, melena, abdominal pain. Patient reports similar hidradenitis to the L groin region which became infected and required a large operation at [place] involving debridement of infection and skin graft to L groin. Hospital Course 42 yo female admitted for buttock wound. On imaging there was concern for possible tubulo-ovarian abscess. Transvaginal US was ordered and CHIEF OF STAFF was consulted. Further imaging excluded TOA abscess. For buttock wound wound care was consulted. IV abx were initiated with silvadene cream as topical treatment. Surgery was consulted for possible skin biospy. Surgery deferred biospy and recommended outpatient followup. Discharge Plan 1. Patient is stable for discharge as per Dr. Florez 2. Patient will continue to use silvadene cream on affected areas. Patient will be given dapsone for next two weeks to be taken twice a day and then followup with Dr. Florez for continued wound care management. 3. Patient should return to hospital if symptoms worsen or recur. 4. Patient understands the plan as above and agrees. Discharge Exam - Additional Findings Additional findings: - Constitutional Appears: Non-toxic, No Acute Distress - Head Exam Head Exam: NORMAL INSPECTION, NORMOCEPHALIC - Eye Exam Eye Exam: EOMI, Normal appearance - ENT Exam ENT Exam: Mucous Membranes Dry - Respiratory Exam Respiratory Exam: Clear to Ausculation Bilateral, NORMAL BREATHING PATTERN. absent: Rhonchi, Wheezes - Cardiovascular Exam Cardiovascular Exam: REGULAR RHYTHM, +S1, +S2 - GI/Abdominal Exam GI & Abdominal Exam: Soft, Normal Bowel Sounds. absent: Guarding, Rigid, Tenderness Additional comments: well healed scar beneath belly button appreciable bulge 2/2 graft insertion with prior groin infection - Exam Additional comments: right buttock superficial wound extending from right superior buttock to right lower posterior thigh no oozing appreciated - Extremities Exam Extremities Exam: Normal Inspection. absent: Calf Tenderness, Pedal Edema - Neurological Exam Neurological Exam: Alert, Awake, Oriented x3 - Psychiatric Exam Psychiatric exam: Normal Affect, Normal Mood - Skin Skin Exam: Dry, Intact, Normal Color Discharge Plan - Discharge Medications Prescriptions: Dapsone 100 mg PO BID #28 tab Silver Sulfadiazine [Silvadene] 20 gm TP DAILY #2 cream..g. - Follow Up Plan Condition: GOOD Disposition: HOME/ ROUTINE Additional Instructions: 1. Patient is stable for discharge as per Dr. Florez 2. Patient will continue to use silvadene cream on affected areas. Patient will be given dapsone for next two weeks to be taken twice a day and then followup with Dr. Florez for continued wound care management. 3. Patient should return to hospital if symptoms worsen or recur. 4. Patient understands the plan as above and agrees. Referrals: Sulaiman Florez Jr., MD [Medical Doctor] -
--- NOTE | 2018-06-11 15:01 | CP.PCM.CON ---
History of Present Illness - History of Present Illness History of Present Illness: General Surgery Progress note for Dr. Schaeffer Consult for second opinion/ possible skin biopsy Patient is a 42 F with PMH hydradenitis and anemia who presented to [facility] d/t pain in left buttock wound area. Pt states her pain has been well controlled during her stay and denies any purulent discharge from the site. She states this wound has been present for nearly 2 years since her surgery. She additionally denies any AVILES, f/c, n/v abdominal pain, and extremity pain/weakness. PMH: Hidradenitis, anemia PSH: Multiple I&D of groin abscess, Large debridement of abdominal wall/groin infection Oct 2017 FHx: Grandmother- endometrial cancer SocHx: Denies tobacco and illicit drugs. Drinks EtOH socially on some weekends. Lives with her and takes care of her grandchild during the day. Meds: ferrous sulfate about every other day to avoid constipation, fish oil, vitamin D, percocet 5/325 q4h PRN (half a pill each time because a full pill "too strong" - rx in Mar post op) All: NKDA Primary care: Dr. Arpita Swan Review of Systems - Review of Systems All systems: reviewed and no additional remarkable complaints except (as per HPI) Past Patient History - Infectious Disease Hx of Infectious Diseases: None - Past Medical History & Family History Past Medical History?: Yes - Past Social History Smoking Status: Never Smoked - CARDIAC Hx Cardiac Disorders: No - PULMONARY Hx Respiratory Disorders: No - NEUROLOGICAL Hx Neurological Disorder: No - HEENT Hx HEENT Problems: No - RENAL Hx Chronic Kidney Disease: No - ENDOCRINE/METABOLIC Hx Endocrine Disorders: No - HEMATOLOGICAL/ONCOLOGICAL Hx Anemia: Yes - INTEGUMENTARY Other/Comment: Pus filled drainage on left anterior pubis - MUSCULOSKELETAL/RHEUMATOLOGICAL Hx Falls: No - GASTROINTESTINAL Hx Gastrointestinal Disorders: No - GENITOURINARY/GYNECOLOGICAL Hx Genitourinary Disorders: No - PSYCHIATRIC Hx Depression: Yes Hx Substance Use: No - SURGICAL HISTORY Hx Surgeries: No Hx Dilation and Curettage: Yes Other/Comment: skin graft left thigh - ANESTHESIA Hx Anesthesia: Yes Hx Anesthesia Reactions: No Meds Home Medications: Home Medication List Medication Instructions Recorded Confirmed Type Dapsone 100 mg PO BID #28 tab 06/11/18 Rx Silver Sulfadiazine [Silvadene] 20 gm TP DAILY #2 cream..g. 06/11/18 Rx Allergies/Adverse Reactions: Allergies Allergy/AdvReac Type Severity Reaction Status Date / Time No Known Allergies Allergy Verified 06/07/18 14:40 - Medications Medications: Current Medications Acetaminophen (Tylenol 325mg Tab) 650 mg PO Q6 PRN PRN Reason: Pain, moderate (4-7) Clindamycin Phosphate 600 mg/ (Sodium Chloride) 54 mls @ 100 mls/hr IVPB Q12H EYAL; Protocol Last Admin: 06/11/18 08:14 Dose: 100 mls/hr Oxycodone/Acetaminophen (Percocet 5/325 Mg Tab) 1 tab PO Q6H PRN PRN Reason: Pain, moderate (4-7) Stop: 06/11/18 15:54 Last Admin: 06/11/18 08:23 Dose: 1 tab Silver Sulfadiazine (Silvadene 1% 20 Gm) 1 ea TOP DAILY EYAL Last Admin: 06/11/18 09:20 Dose: 1 applic Physical Exam - Constitutional Appears: Non-toxic, No Acute Distress, Unkempt - Head Exam Head Exam: ATRAUMATIC, NORMOCEPHALIC - Eye Exam Eye Exam: EOMI - ENT Exam ENT Exam: Mucous Membranes Moist Additional comments: pt has no teeth - Respiratory Exam Respiratory Exam: NORMAL BREATHING PATTERN - Cardiovascular Exam Cardiovascular Exam: REGULAR RHYTHM - GI/Abdominal Exam GI & Abdominal Exam: Soft. absent: Distended, Guarding, Tenderness - Extremities Exam Extremities exam: Positive for: pedal pulses present. Negative for: calf tenderness, pedal edema, tenderness - Neurological Exam Neurological exam: Alert, Oriented x3 - Psychiatric Exam Psychiatric exam: Normal Affect, Normal Mood - Skin Skin Exam: Warm Additional comments: thickened and darkened skin throughout the left inguinal, internal thigh and left gluteal area, area of pink well perfused granulation tissue over left gluteal area with islands of skin healing, no sign of any dark/black/gangrenous skin, no necrosis Results - Vital Signs Recent Vital Signs: Last Vital Signs Temp 97.6 F 06/11/18 08:09 Pulse 82 06/11/18 08:09 Resp 20 06/11/18 08:09 BP 110/73 06/11/18 08:09 Pulse Ox 96 06/11/18 08:09 - Labs Result Diagrams: 06/11/18 07:00 06/11/18 07:00 Labs: Laboratory Results - last 24 hr 06/11/18 06/11/18 07:00 07:00 WBC 5.0 RBC 4.01 Hgb 10.7 L Hct 32.3 L MCV 80.5 L MCH 26.8 L MCHC 33.3 RDW 15.9 H Plt Count 279 MPV 7.3 Neut % (Auto) 50.4 Lymph % (Auto) 30.1 [place] % (Auto) 12.8 H Eos % (Auto) 5.3 H Baso % (Auto) 1.4 Neut # (Auto) 2.5 Lymph # (Auto) 1.5 [place] # (Auto) 0.6 Eos # (Auto) 0.3 Baso # (Auto) 0.1 Sodium 136 Potassium 4.0 Chloride 106 Carbon Dioxide 21 L Anion Gap 13 BUN 10 Creatinine 0.7 Est GFR ( Amer) > 60 Est GFR (Non-Af Amer) > 60 Random Glucose 110 H Calcium 8.1 L Total Bilirubin 0.2 AST 31 ALT 12 Alkaline Phosphatase 134 H Total Protein 7.9 Albumin 3.6 Globulin 4.3 H Albumin/Globulin Ratio 0.8 L Assessment & Plan - Assessment and Plan (Free Text) Assessment: 42 yr old female with pmh hydradenitis and extensive inguinal/gluteal region flap reconstruction after debridement presenting with left gluteal wound Plan: - wound appears well granulated and with healthy margins - pt should follow up outpatient with Dr. Traore for further wound care - no skin biopsy warranted at this time - pt seen examined and discussed with Dr. Laury Prescott, PGY 1 - Date & Time Date: 06/11/18 Time: 12:15
[2018-06-11 16:11] VITALS: BP 120/58; PULSE 70; TEMP 97.7; O2SAT 99
== END 2018-06-11 16:49 | disposition home or self-care (01) | DRG 271 ==
LOC: C.ER 14:31 → C.3T 21:11 → OBSVTOIN 21:11 → INTOOBSV 06-11 10:58 → UNDODISIN 06-11 16:49
PROVIDERS: ADMIT Internal Medicine; ATTEND Internal Medicine
DX: L98.419 Non-pressure chronic ulcer of buttock with unspecified severity (principal); L73.2 Hidradenitis suppurativa; N70.11 Chronic salpingitis; K59.00 Constipation, unspecified; N83.209 Unspecified ovarian cyst, unspecified side